=== PATIENT | female | born 1990 | race Caucasian/White ===

== ENCOUNTER → 2018-09-26 10:46 | Outpatient (CLI) | payer BC, SELFPAY | PROVIDERS: Family Provider Family Medicine; PCP Family Medicine; Referring Provider Family Medicine; Visit Provider Family Medicine | DX: R00.2 Palpitations (principal); R00.0 Tachycardia, unspecified | CPT/HCPCS: 93225; 93226 ==

== ENCOUNTER 2018-11-18 15:20 | Emergency (ER) | payer BC, SELFPAY ==
[2018-11-18 15:20] VITALS: BP 135/78; PULSE 116; RESP 20; TEMP 37.2; O2SAT 96; BMI 38.1
--- NOTE | 2018-11-18 17:43 | EKG12_ITS ---
Test Reason : Blood Pressure : / mmHG Vent. Rate : 092 BPM Atrial Rate : 092 BPM P-R Int : 152 ms QRS Dur : 082 ms QT Int : 366 ms P-R-T Axes : 052 011 029 degrees QTc Int : 452 ms Normal sinus rhythm Normal ECG Confirmed by JOHNNIE QUIÑONES MD ([id number]), news assignment editor TOBY JAIME ([id number]) on 11/20/2018 2:00:41 PM Referred By: BONIFACIO Confirmed By:JOHNNIE QUIÑONES MD
--- NOTE | 2018-11-18 17:51 | NURSING ---
NO OLD EKGS
[2018-11-18 18:07] VITALS: BP 129/84; PULSE 105; PULSE 109; RESP 18; TEMP 36.6; O2SAT 98; O2SAT 99
[2018-11-18 18:12] VITALS: O2SAT 99
[2018-11-18 18:13] LABS: Absolute Lymphocyte Count 2.69 X10^3/ul (0.83-4.51); Absolute Neutrophil Count 9.4 X10^3/uL (2.0-7.7); Basophil# 0.07 X10^3/uL; Basophil% 0.5 % (0-1); Eosinophil# 1.41 X10^3/uL; Eosinophils% 9.5 % (0-5); Hematocrit 45.2 % (37-47); Hemoglobin 14.7 g/dl (12.0-15.0); Lymphocyte # 2.69 X10^3/ul (4.0); Lymphocyte % 18.2 % (19-41); Mean Corp Hgb Conc 32.5 g/gl (32-36); Mean Corpuscular Hgb 29.8 pg (27.0-32.0); Mean Corpuscular Volume 91.5 fL (81-99); Mean Platelet Vol. 11.3 fl (6.2-12.0); Monocyte# 1.13 X10^3/uL; Monocyte% 7.6 % (0-10); Neutrophil # 9.42 X10^3/uL (2.7-7.7); Neutrophil % 63.7 % (47-70); POSITIVE COUNT NO; POSITIVE DIFFERENTIAL NO; POSITIVE MORPHOLOGY NO; Platelet Count 276 K/mm3 (150-450); RBC Distribution Width CV 14.5 % (11.6-14.6); RBC Distribution Width SD 48.5 fl (35.1-43.9); Red Blood Count 4.94 M/mm3 (4.2-5.4); White Blood Count 14.8 K/mm3 (4.4-11.0)
[2018-11-18] MEDS: 0.9% Normal Saline 1,000 ML 1000 ML IV (18:16)
[2018-11-18 18:24] LABS: D-Dimer Quantitative (DVT/PE) < 0.27 FEU/ug/m (0.27-0.49)
[2018-11-18 18:31] LABS: Anion Gap 12 (5-15); BUN 15 mg/dL (7-18); BUN/Creat Ratio 13.5 RATIO (10-20); Calcium,Total 9.3 mg/dL (8.5-10.1); Chloride 108 mmol/L (98-107); Creatinine, Serum 1.11 mg/dL (0.55-1.02); EST Glomerular Filtration Rate 63 mL/min (>60); Est Glom Filt Rate - Afr Amer 76 mL/min (>60); Estimated Creatinine Clearance 57.45 ml/min; Glucose 88 mg/dL (74-106); Sodium Level 143 mmol/L (136-145)
[2018-11-18 19:09] LABS: Pregnancy, Serum, hCG Quali. NEGATIVE Negative (0-9 Nonpreg)
--- NOTE | 2018-11-18 19:26 | ED.DCSUM_ITS ---
- ER Visit Summary Date of Service: 11/18/18 Chief Complaint: Shortness of breath History of Present Illness: The patient is a [address] Cayla curtis. She reports that she has shortness of breath began yesterday. States that she has had a cough productive of clear/yellow sputum. She denies any fever or chills. She reports that yesterday she felt short of breath and took her pulse ox and was 89% with a heart rate in the 150s. States that she used her inhaler and it resolved. Today she again felt short of breath and had a pulse ox of 90% with a heart rate of 124. She used her inhaler and again it resolved. She went to urgent care and had a chest x-ray is negative. States that she was sent to the emergency department for a CT of my chest. Patient denies any personal family history of DVT. No recent travel. No ankle swelling or calf pain. She is on control pills and states that she smokes occasionally. Physical Examination: Vitals: Stable. Afebrile. General: Well-nourished and well-developed. Head: Normocephalic atraumatic. Neck: Supple, no lymphadenopathy. No JVD. Nontender. Cardiovascular: Regular rate and rhythm. No murmurs. Respiratory: No respiratory distress. Clear to auscultation bilaterally. Abdominal: Soft, nontender, nondistended, normal bowel sounds. No guarding, rebound, or peritoneal signs. Back: Nontender. Extremities: Nontender, no edema. Skin: Normal color, no rash. Neurologic: Alert and oriented ?3. Cranial nerves II through XII are intact. Normal strength and sensation. Psych: Normal affect. Test Results: EKG is sinus at 92 with no acute changes. Troponin is negative. D-dimer is negative. test negative. Chloride is 108 and creatinine is 1.11. CBC shows a white count of 14.8 with lymphs lites of 18 and eosinophils of 10. Patient brought the report from her chest x-ray to the emergency department that was negative. This was not repeated. Emergency Department Course and Treatment: Patient is resting comfortably. She was treated prednisone p.o. Treatment Plan: Patient reports that she feels as though she has a URI and and her asthma is acting up. She will be discharged on a 5-day burst of prednisone. Instructed to use her albuterol MDI. [place] her primary care physician 1-2 days if not improving. Return to the emergency department for any worsening symptoms. Disposition: To home in improved and stable condition. Impression: 1. URI. 2. Asthma exacerbation. This note was generated with [employer] dictation software. It may contain incorrect words, spelling, and punctuation that were not noted in review of the chart prior to signing ED Disposition - Plan for ED Patient: Disposition: Home or Assisted Living Instructions: ED Bronchitis Asthmatic Prescriptions: Prednisone [Deltasone] 60 mg PO DAILY #15 tablet Referrals: John Sweet MD [Primary Care Provider] - 3-5 Days if not improving
[2018-11-18] MEDS: predniSONE 20 MG Tablet 60 MG PO (19:39)
== END 2018-11-18 19:41 | disposition home or self-care (01) ==
LOC: ED 17:59
PROVIDERS: Emergency Provider Emergency Medicine; Family Provider Family Medicine; PCP Family Medicine
DX: J06.9 Acute upper respiratory infection, unspecified (principal); J45.901 Unspecified asthma with (acute) exacerbation; F31.9 Bipolar disorder, unspecified; Z79.3 Long term (current) use of hormonal contraceptives; Z79.899 Other long term (current) drug therapy; Z72.0 Tobacco use
CPT/HCPCS: 80048; 84484; 84703; 85025; 85379; 93005; 96360; 99285; J7030

== ENCOUNTER 2019-02-03 08:57 | Outpatient (RCR) | payer BC, SELFPAY ==
--- NOTE | 2019-02-03 09:05 | BH.SGPN.GN ---
Behaviors/Verbalizations/Mental Status: [] Eye contact is good. Motor activity is appropriate. Appearance is casual. Speech is Appropriate. Mood is anxious. Affect is congruent. Thoughts are linear and logical. No evidence of psychosis. Reviewed daily check in sheet with 3/5 for suicidal ideations and 0/5 for intent. Therapist notified Client Response/Progress/Benefit: [] Pt spoke when prompted. Reported being anxious as this was her first day in IOP. Shared little stating that she is here to work on developing stronger coping skills for her depression and anxiety. Group was supportive and discussed their anxiety on the first day. Normalized her emotions and discussed their progress since the first day. Pt smiling and laughing at times. Attentive. No progress noted as this was pt's first day. Stated that she feels like she is constantly holding back her tears. Will continue in IOP to maintain safety, increased coping skills for depression/anxiety, and stabilize mood. Narrative Note: []
--- NOTE | 2019-02-03 10:05 | BH.SGPN.GN ---
Behaviors/Verbalizations/Mental Status: []Pt eye contact good, casually dressed, motor activity appropriate, speech normal rate and tone, mood dysthymic and anxious, constricted affect, thoughts linear and intact, no evidence of delusions or hallucinations. Client Response/Progress/Benefit: []Client passive participant, not providing input throughout discussion, however appeared to attentively listen to peers. Client nodded that viewing situations as impossible can negatively impact one?s mental health. Client agreed with peers comments that seeing things as impossible sets you up to not try new things or to overcome difficult situations. Client nodded to others comments that some things appear impossible, but if keep trying likely can find a way to overcome or accomplish the difficult task. Client engaged in the group activity and the group did not complete the activity during second group. Despite lack of success, client did not appear to fall into fixed thinking pitfalls and stayed engaged. Client appeared to benefit from gaining awareness how viewing situations as impossible can negatively impact mental health progress. Client's first day in IOP which could explain client's passive participation. Narrative Note: []
--- NOTE | 2019-02-03 11:10 | BH.SGPN.GN ---
Behaviors/Verbalizations/Mental Status: [Client maintained fair eye contact, casually dressed and appropriate grooming, motor activity appropriate, speech normal rate and tone, mood anxious and depressed, affect congruent, thoughts linear, logical, no evidence of delusions or hallucinations.]] Client Response/Progress/Benefit: [Pt attentive, did well to remain attentive during discussion and became increasingly engaged during growth mindset reflection activity. She was actively listening and taking notes as group brainstormed on how fixed mindset thoughts experienced in the activity impacted ability to complete the task at hand. Pt indicated connecting with thoughts of ?if it?s not perfect I might as well give up?. Worked with group to identify important components of a growth mindset. With reflection and assistance from the group she was able to apply cognitive restructuring to reframe fixed thoughts of ?I have to be perfect? with growth mindset thought of ?I can put my best effort in and still make a lot of progress?. Benefitted from discussing benefits of growth mindset and strategies for reframing fixed thoughts. Progress in pt ability to challenge self to increase in engagement and provide input to the group. Continued IOP tx recommended to increase insight and ability to apply thought challenge skills, improve anxiety, and maintain safety.] Narrative Note: []
--- NOTE | 2019-02-03 13:03 | BH.MDN ---
Multi-Disciplinary Note - Note 45-min Individual Time Started:: 12:15 Date: 02/03/19 Purpose of session/treatment goals addressed:: Accessed current symptoms. Reviewed first day in IOP. Eye Contact:: Fair Motor Activity:: Appropriate Appearance:: Casual Speech:: Appropriate Mood:: Depressed Affect:: Flat Thoughts:: Linear, Logical, Other Staff Interventions:: Utilized NM techniques to elicit change behaviors. Provided education on cognitive distortions.Gave thought record. Began to discuss treatment plan. Educated on crisis numbers. Client Response:: Pt was tearful. Stated that she unsure if IOP program is right fit. Discussed being introvert and having difficulty talking during groups. Describes herself as usually keeping her emotions to herself. Shared i know a lot of these skills however I'm not using them. Talked about struggles with feeling like I always have to be perfect. Shared that this belief often leads to feelings of depression and believing that she is a failure. Shared that her ex-bf completed suicide this past weekend. States that they were not close as he was the worst BF I ever had however just got me thinking more about my symptoms. Denies suicidal ideations, plan, or intent. States numerous times I'm safe. We reviewed crisis numbers. We also talked about some coping skills and developing a thought record to track her thoughts so that she could challenge them. Smiling and joking towards the end of the session. Risks/Concerns:: Pt denies any active suicidal ideations, plan, or intent. Protective factor is child. Future-oriented with career and school. Going to work this afternoon. Verbally contracts for safety. Reports fleeting suicidal thoughts yesterday after learning that ex-bf completed suicide this weekend. Fleeting SI has been occuring for several months with no formulation of intent or plan. Denies any hx of suicide attempts. Progress Toward Goals/Plan:: Limited progress as this is pt's first day. Long-standing fleeting suicidal ideations since Aug 2018 and feelings of hopelessness. Denies any active SI, plan, or intent. No hx of attempts. Unsure if IOP is right fit for her. At times felt uncomforable in group however was able to identify positives to hearing that others are struggling with depression as well. Discussed benefits however made sure she understood that program is voluntary. Plan is to continue with IOP to maintain safety, prevent decompensation, and stablize mood.
--- NOTE | 2019-02-05 09:05 | BH.SGPN.GN ---
Behaviors/Verbalizations/Mental Status: [] Eye contact is good. Motor activity is appropriate. Appearance is casual. Speech is Appropriate. Mood is depressed. Affect is flat. Thoughts are linear and logical. No evidence of psychosis. Reviewed daily check in sheet and pt reports 3/5 for suicidal ideations and 0/5 for intent. Therapist notified Client Response/Progress/Benefit: [] Pt participated at time during group discussion. Emotion for today is anxious. Shared that she continues to struggle reporting that she isolated all day yesterday. Feels guilty about this. Tearful. Did not elaborate much however did provided feedback to other peers regarding self-care. Reports that she is getting used too sharing her emotions with others and in group sessions. Group was supportive which was beneficial. No progress noted however pt appears to be getting more comfortable in group setting. Will continue in IOP to maintain safety, prevent decompensation, and increase coping skills. Narrative Note: []
--- NOTE | 2019-02-05 10:09 | BH.SGPN.GN ---
Behaviors/Verbalizations/Mental Status: []Client alert and oriented, casually dressed and groomed. Eye contact fair. Motor activity appropriate. Speech within normal limits. Affect congruent, mood dysthymic. Thoughts linear, logical, no signs of hallucinations or delusions. Client Response/Progress/Benefit: []Pt receptive of session AEB pt listening to others, taking notes, and providing input at times. Pt appeared to connect with various definitions of resilience provided by the group as well as ideas for how resilience can have positive impacts mental health and wellness. Pt reported coming to IOP and willing to work on self shows resilience. Pt engaged in small group discussion about the various strategies that can help strengthen one's resilience. Pt appeared to connect with others comments about importance of self-awareness to build resilience because if know personal barriers then know what you can do to improve situation. Pt seemed to benefit from increased awareness of various components that can contribute to increased resilience. Progress noted in her increased engagement in session compared to previous group sessions. Continued IOP recommended to prevent decompensation, increase utilization of healthy coping skills, and decrease depression. Narrative Note: []
--- NOTE | 2019-02-05 11:12 | BH.SGPN.GN ---
Behaviors/Verbalizations/Mental Status: []Client alert and oriented, casually dressed and groomed. Eye contact good. Motor activity appropriate. Speech within normal limits. Affect flat, mood depressed. Thoughts linear, logical, no signs of hallucinations or delusions. Client Response/Progress/Benefit: []Client responded well to session, quiet, but participating when prompted. Client engaged in the group activity. Client was passive at first, but then she helped the group develop ideas to be successful. Client shared ?we trusted each other? which can also help people be resilient in their daily lives. Client was given a stress ball as a reminder of resilience. On her stress ball, client wrote ?don?t give up when something doesn?t work out.? Client shared this will remind her to have hope. Client reported she wants to work on having more hope and optimism to further improve personal resilience. Client shared she struggles with this because ?I?m pessimistic.? The group helped client identify strategies to help client be more optimistic such as writing out positives. Client appeared to benefit from identifying personal resilience factors. No progress, but client appears to be getting more comfortable in the group setting. Client to continue IOP to maintain safety and prevent decompensation.
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
--- NOTE | 2019-02-05 15:17 | BH.MTP ---
[facility] - Patient Information Program Physician:: Jose Angel Philip Primary Therapist:: Michelle Villalba - Psychiatric Diagnoses Psychiatric Diagnoses:: Persistent depressive disorder, rule out bipolar type II: Generalized anxiety disorder; history of substance abuse, in remission. Diagnosis Code(s):: F 34.1 - Estimated LOS Estimated LOS (in weeks):: 6 Problem/Goal #1 - Problem/Goal #1 Stated Goal:: Client will decrease depressive symptoms, isolation, and suicidal ideations. Description of Barriers: Client has been with her since she was 17 years old and she reports currently feeling like their relationship is in a rut. Per client's report, she cheated on her while manic and client continues to feel shame and guilt over this situation. Client is not close with her parents and she does not report any close friends. Client has been isolating for the past several months. Client endorses numerous negative core beliefs that may take a longer time than 6 weeks to combat and replace. Client has a history of complex trauma, drug use, and unhealthy coping skills such as internalizing and avoidance. Client reports she can mask her mental health symptoms well when she is around others, and that she does not like being vulnerable. Client works, goes to school, and has a [id number], so she has limited time for self-care. Functional Impact: Client is a 28-year-old female with a history of bipolar disorder and PTSD. Client was referred by her outpatient therapist due to worsening depressive symptoms and fleeting suicidal ideations. Client reports history of depression since she was a teenager, but that her depression has been worse since August of 2018. Client endorses a depressed mood, anhedonia, increased sleep and appetite, lack of motivation, crying spells, suicidal ideations, isolative behaviors, and hopelessness. Client denies any active suicidal ideations, but she shares frequent thoughts of my and daughter would be better without me. Client reports constant anxiety, ruminations, and restlessness. Client has history of brendan, per her report, in which client has decreased sleep, impulsive behaviors, and risky sexuality. Client?s symptoms have been impacting her educational, social, and familial functioning as well as her quality of life. Goal Relevant Strengths/Supports: Client is intelligent, kind, and motivated to improve her mental health symptoms. Client has a good sense of humor and is willing to engage during sessions. Client demonstrates significant resilience as she has experienced numerous adverse experiences in her life and continues to move forward. Client has a daughter who she identifies as her reason to live and is . Client identifies her [id number] as her biggest support. 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 Client is receptive to learning new coping skills and reports I'll try anything. Client's open mind could be beneficial to her progress. - Objectives Objective #1 Stated Objective: Client will learn and utilize 2-3 healthy coping strategies to better manage depressive symptoms as shown by a reduced DSM-5 cross cutting score for depression. Interventions: Through group and individual sessions, therapist will help client identify triggers and warning signs of depression and emotional dysregulation including emotional, physical, and behavioral changes. Therapist will teach client various coping skills to manage her symptoms and give client tangible resources to use to regulate emotions. Therapist will use cognitive restructuring techniques and help client gain awareness of negative thoughts that reinforce depressive cycles. Therapist will provide psychoeducation on depressive cycles and teach client ways to beak out of unhealthy maintenance cycles. Therapist will help client incorporate behavioral activation and assist client in setting SMART goals. Discharge Criteria: Client will have met this goal when she can report learning and using at least 2 coping skills to manage depressive symptoms. Additionally, client will have met this goal when her DSM-5 scores for depression have decreased. Target Date: 03/17/19 Review Date: 03/05/19 Status: open Objective #2 Stated Objective: Client will identify at least 2-3 negative self-talk messages used to reinforce suicidal ideations and negative core beliefs and replace thoughts with positive, realistic messages. Interventions: Therapist will help client identify distorted, negative beliefs about self and replace with more realistic, affirmative messages. Therapist will use CBT to help client increase insight to the connection between thoughts, emotions, and behaviors. Therapist will encourage client to practice thought challenging. Discharge Criteria: Client will have achieved this goal when can verbalize at least 2 negative self-talk messages and effectively replace those thoughts with affirmative messages. Target Date: 03/17/19 Review Date: 03/05/19 Status: open Problem/Goal #2 - Problem/Goal #2 Stated Goal:: Client will increase emotional regulation and reduce anxiety symptoms. Description of Barriers: Client has been with her since she was 17 years old and she reports currently feeling like their relationship is in a rut. Per client's report, she cheated on her while manic and client continues to feel shame and guilt over this situation. Client is not close with her parents and she does not report any close friends. Client has been isolating for the past several months. Client endorses numerous negative core beliefs that may take a longer time than 6 weeks to combat and replace. Client has a history of complex trauma, drug use, and unhealthy coping skills such as internalizing and avoidance. Client reports she can mask her mental health symptoms well when she is around others, and that she does not like being vulnerable. Client works, goes to school, and has a [id number], so she has limited time for self-care. Functional Impact: Client is a 28-year-old female with a history of bipolar disorder and PTSD. Client was referred by her outpatient therapist due to worsening depressive symptoms and fleeting suicidal ideations. Client reports history of depression since she was a teenager, but that her depression has been worse since August of 2018. Client endorses a depressed mood, anhedonia, increased sleep and appetite, lack of motivation, crying spells, suicidal ideations, isolative behaviors, and hopelessness. Client denies any active suicidal ideations, but she shares frequent thoughts of my and daughter would be better without me. Client reports constant anxiety, ruminations, and restlessness. Client has history of brendan, per her report, in which client has decreased sleep, impulsive behaviors, and risky sexuality. Client?s symptoms have been impacting her educational, social, and familial functioning as well as her quality of life. Goal Relevant Strengths/Supports: Client is intelligent, kind, and motivated to improve her mental health symptoms. Client has a good sense of humor and is willing to engage during sessions. Client demonstrates significant resilience as she has experienced numerous adverse experiences in her life and continues to move forward. Client has a daughter who she identifies as her reason to live and is . Client identifies her [id number] as her biggest support. 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 Client is receptive to learning new coping skills and reports I'll try anything. Client's open mind could be beneficial to her progress. - Objectives Objective #1 Stated Objective: Client will identify 2-3 anxiety and emotional dysregulation triggers and 2 calming coping skills to reduce anxiety as shown by decreased DSM-5 cross-cutting score. Interventions: Therapist will help client increase awareness of anxiety and emotional dysregulation triggers and educate client on ways emotions impact overall health. Therapist will teach client various calming strategies to promote emotional regulation and reduction of anxiety. Therapist will assist client in identifying warning signs and triggers. Therapist will discuss the benefit of self-care and self-compassion. Discharge Criteria: Client will have accomplished this goal when can report at least 2 triggers for anxiety and state using 2 calming strategies to manage symptoms. Additionally, client will have accomplished this goal when her DSM-5 cross-cutting scores show a decrease in anxiety. Target Date: 03/17/19 Review Date: 03/05/19 Status: open Objective #2 Stated Objective: Client will identify 2-3 cognitive distortions that lead to rumination and learn 2-3 ways to manage these thoughts to reduce anxiety and stress. Interventions: Therapist will provide education on the most common cognitive distortions and teach client the connection between thoughts, emotions, and feelings. Therapist will assist client in identifying, challenging, and replacing dysfunctional thoughts with positive, more realistic thoughts. Therapist will use CBT and DBT techniques to help client gain awareness of thinking errors and learn how to more effectively handle negative thoughts that cause anxiety. Discharge Criteria: Client will have accomplished this goal when can identify at least 2 cognitive distortions that reinforce anxiety and at least 2 coping skills to manage negative thoughts. Target Date: 03/17/19 Review Date: 03/05/19 Status: open
--- NOTE | 2019-02-07 09:00 | BH.COMM ---
Communication Note - Communication with Client Communication Note: Pt unable to come to IOP today due to childcare issues. Will miss psychiatric evaluation. Plan is to complete this next week.
--- NOTE | 2019-02-10 09:06 | BH.SGPN.GN ---
Behaviors/Verbalizations/Mental Status: [Pt alert and oriented, casual dress, grooming appropriate. Eye contact fair to good. Motor activity appropriate. Speech within normal limits. Affect constricted, mood depressed and anxious. Thoughts linear, logical, no signs of hallucinations or delusions. Reviewed client?s symptom tracker and pt reports suicidal ideation as 4/5 which is consistent to baseline, denies intent.?Pt is future oriented and able to identify positives. Will have individual therapist check-in to further assess for risk. ] Client Response/Progress/Benefit: [Pt receptive of session, provided limited input however remained an active listener throughout. Pt opted not to share in group and discussed that she currently has several stressors she would prefer not to discuss at the moment. Reports feeling hopeless. She was receptive of group encouragement and appeared to benefit from the support provided. Pt progress continues to be limited due to resistance to engaging in tx environment. Recommended continued IOP tx to decrease depressive sx, increase positive self-talk and healthy behaviors, as well as prevent decompensation.] Narrative Note: []
--- NOTE | 2019-02-10 10:25 | BH.SGPN.GN ---
Behaviors/Verbalizations/Mental Status: []Client alert and oriented, causally dressed and groomed. Eye contact poor. Motor activity appropriate. Speech within normal limits. Affect flat, mood depressed. Thoughts linear, logical, no signs of hallucinations or delusions. Client Response/Progress/Benefit: []Client passive participant AEB pt providing limited input throughout discussion, but appeared to listen attentively to peers. Connected with discussion on how coping with external crisis by using unhealthy coping skills could lead to personal crisis. Group identified common warning signs of a personal crisis to include: isolation, increased negative thoughts, increased sleep, increased appetite, loss of motivation and apathy. Client completed the personal warning signs worksheet and identified crisis warning signs. Client chose to not share with group her own personal warning signs. Benefited from group by increasing awareness of crisis and personal warning signs. Will continue IOP tx to stabilize moods, increase use of healthy coping skills and prevent decompensation. Narrative Note: []
--- NOTE | 2019-02-10 11:25 | BH.SGPN.GN ---
Behaviors/Verbalizations/Mental Status: []Client alert and oriented, neatly dressed and groomed. Eye contact fair. Motor activity appropriate. Speech within normal limits. Affect flat-tearful, mood anxious, depressed. Thoughts linear, logical, no signs of hallucinations or delusions. Client Response/Progress/Benefit: []Client responded well to session as evidenced by client listening attentively to others and sharing when prompted. Client identified her warning signs for crisis and gained further awareness of her earliest warning signs, however, client declined to share her warning signs with the group. Client recognized that awareness of these warning signs can prevent further crisis and help client utilize healthy coping skills to break the cycle. Client created a crisis action plan to help client better manage warning signs for crisis. Client?s plan included coping skills such grounding techniques and reaching out to a trusted support. Client selected three items that will help her remember these crisis interventions including a rock, a flower, and a feather. Client appeared to benefit from creating a crisis action plan and increasing her self-awareness. Client continues to endorse a depressed mood, anxiety, and difficulty regulation emotions. Client to continue IOP to prevent further decompensation and increase mood stability.
--- NOTE | 2019-02-12 15:17 | BH.MTP_ITS ---
[facility] - Patient Information Program Physician:: Jose Angel Philip Primary Therapist:: Michelle Villalba - Psychiatric Diagnoses Psychiatric Diagnoses:: Persistent depressive disorder, rule out bipolar type II: Generalized anxiety disorder; history of substance abuse, in remission. Diagnosis Code(s):: F 34.1 - Estimated LOS Estimated LOS (in weeks):: 6 Problem/Goal #1 - Problem/Goal #1 Stated Goal:: Client will decrease depressive symptoms, isolation, and suicidal ideations. Description of Barriers: Client has been with her since she was 17 years old and she reports currently feeling like their relationship is in a rut. Per client's report, she cheated on her while manic and client continues to feel shame and guilt over this situation. Client is not close with her parents and she does not report any close friends. Client has been isolating for the past several months. Client endorses numerous negative core beliefs that may take a longer time than 6 weeks to combat and replace. Client has a history of complex trauma, drug use, and unhealthy coping skills such as internalizing and avoidance. Client reports she can mask her mental health symptoms well when she is around others, and that she does not like being vulnerable. Client works, goes to school, and has a [id number], so she has limited time for self-care. Functional Impact: Client is a 28-year-old female with a history of bipolar disorder and PTSD. Client was referred by her outpatient therapist due to worsening depressive symptoms and fleeting suicidal ideations. Client reports history of depression since she was a teenager, but that her depression has been worse since August of 2018. Client endorses a depressed mood, anhedonia, increased sleep and appetite, lack of motivation, crying spells, suicidal ideations, isolative behaviors, and hopelessness. Client denies any active suicidal ideations, but she shares frequent thoughts of my and daughter would be better without me. Client reports constant anxiety, ruminations, and restlessness. Client has history of brendan, per her report, in which client has decreased sleep, impulsive behaviors, and risky sexuality. Client?s symptoms have been impacting her educational, social, and familial functioning as well as her quality of life. Goal Relevant Strengths/Supports: Client is intelligent, kind, and motivated to improve her mental health symptoms. Client has a good sense of humor and is willing to engage during sessions. Client demonstrates significant resilience as she has experienced numerous adverse experiences in her life and continues to move forward. Client has a daughter who she identifies as her reason to live and is . Client identifies her [id number] as her biggest support. 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 Client is receptive to learning new coping skills and reports I'll try anything. Client's open mind could be beneficial to her progress. - Objectives Objective #1 Stated Objective: Client will learn and utilize 2-3 healthy coping strategies to better manage depressive symptoms as shown by a reduced DSM-5 cross cutting score for depression. Interventions: Through group and individual sessions, therapist will help client identify triggers and warning signs of depression and emotional dysregulation including emotional, physical, and behavioral changes. Therapist will teach client various coping skills to manage her symptoms and give client tangible resources to use to regulate emotions. Therapist will use cognitive restructuring techniques and help client gain awareness of negative thoughts that reinforce depressive cycles. Therapist will provide psychoeducation on depressive cycles and teach client ways to beak out of unhealthy maintenance cycles. Therapist will help client incorporate behavioral activation and assist client in setting SMART goals. Discharge Criteria: Client will have met this goal when she can report learning and using at least 2 coping skills to manage depressive symptoms. Additionally, client will have met this goal when her DSM-5 scores for depression have decreased. Target Date: 03/17/19 Review Date: 03/05/19 Status: open Objective #2 Stated Objective: Client will identify at least 2-3 negative self-talk messages used to reinforce suicidal ideations and negative core beliefs and replace thoughts with positive, realistic messages. Interventions: Therapist will help client identify distorted, negative beliefs about self and replace with more realistic, affirmative messages. Therapist will use CBT to help client increase insight to the connection between thoughts, emotions, and behaviors. Therapist will encourage client to practice thought challenging. Discharge Criteria: Client will have achieved this goal when can verbalize at least 2 negative self-talk messages and effectively replace those thoughts with affirmative messages. Target Date: 03/17/19 Review Date: 03/05/19 Status: open Problem/Goal #2 - Problem/Goal #2 Stated Goal:: Client will increase emotional regulation and reduce anxiety symptoms. Description of Barriers: Client has been with her since she was 17 years old and she reports currently feeling like their relationship is in a rut. Per client's report, she cheated on her while manic and client continues to feel shame and guilt over this situation. Client is not close with her parents and she does not report any close friends. Client has been isolating for the past several months. Client endorses numerous negative core beliefs that may take a longer time than 6 weeks to combat and replace. Client has a history of complex trauma, drug use, and unhealthy coping skills such as internalizing and avoidance. Client reports she can mask her mental health symptoms well when she is around others, and that she does not like being vulnerable. Client works, goes to school, and has a [id number], so she has limited time for self-care. Functional Impact: Client is a 28-year-old female with a history of bipolar disorder and PTSD. Client was referred by her outpatient therapist due to worsening depressive symptoms and fleeting suicidal ideations. Client reports history of depression since she was a teenager, but that her depression has been worse since August of 2018. Client endorses a depressed mood, anhedonia, increased sleep and appetite, lack of motivation, crying spells, suicidal ideations, isolative behaviors, and hopelessness. Client denies any active suicidal ideations, but she shares frequent thoughts of my and daughter would be better without me. Client reports constant anxiety, ruminations, and restlessness. Client has history of brendan, per her report, in which client has decreased sleep, impulsive behaviors, and risky sexuality. Client?s symptoms have been impacting her educational, social, and familial functioning as well as her quality of life. Goal Relevant Strengths/Supports: Client is intelligent, kind, and motivated to improve her mental health symptoms. Client has a good sense of humor and is willing to engage during sessions. Client demonstrates significant resilience as she has experienced numerous adverse experiences in her life and continues to move forward. Client has a daughter who she identifies as her reason to live and is . Client identifies her [id number] as her biggest support. 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 Client is receptive to learning new coping skills and reports I'll try anything. Client's open mind could be beneficial to her progress. - Objectives Objective #1 Stated Objective: Client will identify 2-3 anxiety and emotional dysregulation triggers and 2 calming coping skills to reduce anxiety as shown by decreased DSM-5 cross-cutting score. Interventions: Therapist will help client increase awareness of anxiety and emotional dysregulation triggers and educate client on ways emotions impact overall health. Therapist will teach client various calming strategies to promote emotional regulation and reduction of anxiety. Therapist will assist client in identifying warning signs and triggers. Therapist will discuss the benefit of self-care and self-compassion. Discharge Criteria: Client will have accomplished this goal when can report at least 2 triggers for anxiety and state using 2 calming strategies to manage symptoms. Additionally, client will have accomplished this goal when her DSM-5 cross-cutting scores show a decrease in anxiety. Target Date: 03/17/19 Review Date: 03/05/19 Status: open Objective #2 Stated Objective: Client will identify 2-3 cognitive distortions that lead to rumination and learn 2-3 ways to manage these thoughts to reduce anxiety and st ress. Interventions: Therapist will provide education on the most common cognitive distortions and teach client the connection between thoughts, emotions, and feelings. Therapist will assist client in identifying, challenging, and replacing dysfunctional thoughts with positive, more realistic thoughts. Therapist will use CBT and DBT techniques to help client gain awareness of thinking errors and learn how to more effectively handle negative thoughts that cause anxiety. Discharge Criteria: Client will have accomplished this goal when can identify at least 2 cognitive distortions that reinforce anxiety and at least 2 coping skills to manage negative thoughts. Target Date: 03/17/19 Review Date: 03/05/19 Status: open
== END 2019-02-11 23:59 ==
LOC: BHIOP 08:57
PROVIDERS: Family Provider Family Medicine; PCP Family Medicine; Referring Provider Psychiatry & Neurology Psychiatry; Visit Provider Psychiatry & Neurology Psychiatry
DX: F32.9 Major depressive disorder, single episode, unspecified (principal); F43.10 Post-traumatic stress disorder, unspecified
CPT/HCPCS: H0035; 90837; 90853

== ENCOUNTER 2019-02-12 09:00 | Outpatient (RCR) | payer BC, SELFPAY ==
--- NOTE | 2019-02-12 09:09 | BH.SGPN.GN ---
Behaviors/Verbalizations/Mental Status: [Pt alert and oriented, casual dress, grooming appropriate. Eye contact fair to good. Motor activity appropriate. Speech within normal limits. Affect constricted, mood depressed and anxious. Thoughts linear, logical, no signs of hallucinations or delusions. Reviewed client?s symptom tracker and pt reports suicidal ideation as 4/5 which is consistent to baseline, denies intent.?Pt is future oriented and able to identify positives. Will have individual therapist check-in to further assess for risk. ] Client Response/Progress/Benefit: [Pt receptive of session, provided limited input however remained an active listener throughout. Pt noted ?I don?t love first group? and discussed that discussing her emotions in a group setting is a new and uncomfortable thing for her as she does not typically talk in social settings. Pt indicated emotion for today is hopeless and went on to explain that she is struggling to manage the overwhelming stress in her daily life. She did well to identify two mental health wins despite current stressors. Pt noted following through with going to cross-fit class with her [id number] as a major win as she had been tempted to isolate instead. Additional win was that this allowed her to catch up and spend time with her [id number]. Pt progress noted in willingness to contribute to group despite anxiety. Recommended continued IOP tx to decrease depressive sx, increase positive self-talk and healthy behaviors, as well as prevent decompensation.] Narrative Note: []
--- NOTE | 2019-02-12 10:17 | BH.SGPN.GN ---
Behaviors/Verbalizations/Mental Status: [Client alert and oriented, casually dressed. Eye contact fair to good. Motor activity appropriate. Speech within normal limits. Affect constricted, mood depressed. Thoughts linear, logical, no signs of hallucinations or delusions. ] Client Response/Progress/Benefit: [Pt receptive to session, provided limited input however actively listening throughout discussion on stress AEB maintaining eye contact and taking notes throughout. Able to brainstorm the positive and negative aspects of stress on physical and mental health. Indicated that an example of ?good stress? could be preparing for a wedding. Appeared to benefit from gaining awareness of own current stressors and learning about the impact stress has on overall wellbeing. She participated in identifying current stressors impacting her mental health. Pt's current stressors include: school, work, finances, her relationship, and caregiving responsibilities. Pt noted that her most significant stressor in currently school. Progress noted in improved ability to identify impact of current stressors on mental health and wellbeing as she indicated decreased self-confidence and increased agitation as a result. Recommended continued IOP tx to improve anxiety management, increase emotion regulation and distress tolerance skills, and prevent decompensation. ] Narrative Note: []
--- NOTE | 2019-02-12 14:31 | BH.MDN ---
Multi-Disciplinary Note - Note 60-min Individual Time Started:: 12:30 Date: 02/12/19 Purpose of session/treatment goals addressed:: The purpose of this session was to address current stressors, symptoms, and triggers. Another goal was to learn different types of coping skills and set small daily goals. Other topics included trauma triggers. Eye Contact:: Poor Motor Activity:: Appropriate - fidgeting with her tissue. Appearance:: Casual Speech:: Soft Mood:: Dysthymic Affect:: Flat - tearful Thoughts:: Linear, Logical, No evidence of hallucinations/delusions noted Staff Interventions:: Therapist used active listening and open-ended questions to explore client's current triggers, stressors, and symptoms. Therapist provided emotional support to validate and normalize client's emotions and safety behaviors. Therapist helped client process triggers and barriers. Therapist provided psychoeducation on the depressive cycle and the CBT triangle. Therapist used strengths perspective to emphasize client's mental health wins. Therapist taught client different types of coping skills and discussed the benefits of each type. Therapist assisted client in setting small daily goals to practice new coping skills. Client Response:: Client responded well to session, open to meeting with therapist. Client reports today was the best day she has had here so far I participated and didn't have a panic attack. Client shared she feels silly and like 'an idiot whenever she portrays emotions in group. Therapist helped to normalize these emotional responses and client appeared to become more understanding of herself. Client shared she often feels like things will not improve, but she does not want to give up. Client also reported fears of being normal because client shared she does not know what normal looks like. Client became tearful and reported she feels exhausted after group. After further exploration, client recognizes this is because she has been used to distracting herself and avoiding problems for most of her life. Client acknowledged the consequences of long-term avoidance and benefits of addressing mental health. Client connected with the CBT triangle and shared yesterday she made herself go to [employer] which improved her mood. Client receptive to learning about the different kinds of coping skills so she can have more of a variety besides distraction. Client reported she is willing to try journaling, visualization, and doing one thing she enjoys. Client receptive to talk time for self-care today before going into work. Risks/Concerns:: Client reports ongoing passive suicidal thoughts. However, client denies any active suicidal ideations, plan, or intent as of 02/12/19. Client verbally contracts for safety and reports ability to control her thoughts. Progress Toward Goals/Plan:: Client appears to be progressing towards her treatment goals as shown by her report of today was the best day I've had so far at [facility]. Client reports following through with her goals from individual and group sessions and did not have a panic attack today which is progress. Client continues to report emotional exhaustion after group. After further exploration, client recognizes this is from not being used to talking about her mental health. Client continues to report a depressed mood, anhedonia, crying spells, negative thinking, and lack of motivation. Client to continue IOP to prevent decompensation and maintain safety. Time Stopped:: 13:38
--- NOTE | 2019-02-12 14:53 | BH.MDN_ITS ---
Multi-Disciplinary Note - Note 60-min Individual Time Started:: 12:30 Date: 02/12/19 Purpose of session/treatment goals addressed:: The purpose of this session was to address current stressors, symptoms, and triggers. Another goal was to learn different types of coping skills and set small daily goals. Other topics included trauma triggers. Eye Contact:: Poor Motor Activity:: Appropriate - fidgeting with her tissue. Appearance:: Casual Speech:: Soft Mood:: Dysthymic Affect:: Flat - tearful Thoughts:: Linear, Logical, No evidence of hallucinations/delusions noted Staff Interventions:: Therapist used active listening and open-ended questions to explore client's current triggers, stressors, and symptoms. Therapist provided emotional support to validate and normalize client's emotions and safety behaviors. Therapist helped client process triggers and barriers. Therapist provided psychoeducation on the depressive cycle and the CBT triangle. Therapist used strengths perspective to emphasize client's mental health wins. Therapist taught client different types of coping skills and discussed the benefits of each type. Therapist assisted client in setting small daily goals to practice new coping skills. Client Response:: Client responded well to session, open to meeting with therapist. Client reports today was the best day she has had here so far I participated and didn't have a panic attack. Client shared she feels silly and like 'an idiot whenever she portrays emotions in group. Therapist helped to normalize these emotional responses and client appeared to become more understanding of herself. Client shared she often feels like things will not improve, but she does not want to give up. Client also reported fears of being normal because client shared she does not know what normal looks like. Client became tearful and reported she feels exhausted after group. After further exploration, client recognizes this is because she has been used to distracting herself and avoiding problems for most of her life. Client acknowledged the consequences of long-term avoidance and benefits of addressing mental health. Client connected with the CBT triangle and shared yesterday she made herself go to [employer] which improved her mood. Client receptive to learning about the different kinds of coping skills so she can have more of a variety besides distraction. Client reported she is willing to try journaling, visualization, and doing one thing she enjoys. Client receptive to talk time for self-care today before going into work. Risks/Concerns:: Client reports ongoing passive suicidal thoughts. However, client denies any active suicidal ideations, plan, or intent as of 02/12/19. Client verbally contracts for safety and reports ability to control her thoughts. Progress Toward Goals/Plan:: Client appears to be progressing towards her treatment goals as shown by her report of today was the best day I've had so far at [facility]. Client reports following through with her goals from individual and group sessions and did not have a panic attack today which is progress. Client continues to report emotional exhaustion after group. After further exploration, client recognizes this is from not being used to talking about her mental health. Client continues to report a depressed mood, anhedonia, crying spells, negative thinking, and lack of motivation. Client to continue IOP to prevent decompensation and maintain safety. Time Stopped:: 13:38
--- NOTE | 2019-02-13 13:38 | BH.COMM ---
Communication Note - Communication with Client Communication Note: Therapist spoke with client's outpatient therapist, Stefani Rueda, for continuity of care purposes including: treatment updates, progress, and plan of care.
--- NOTE | 2019-02-14 11:20 | BH.SGPN.GN ---
Behaviors/Verbalizations/Mental Status: []Pt alert and oriented, eye contact poor, casually dressed, motor activity appropriate, speech normal rate and tone, mood anxious and depressed, tearful, flat affect, thoughts linear and intact, no evidence of delusions or hallucinations. Client Response/Progress/Benefit: []Pt appeared disengaged during group discussion however did complete goal setting worksheet. Pt identified her short-term SMART goal is to go outside for at least 10 minutes a day. Pt stated this goal will benefit her decreasing isolation. Pt identified not having time as one obstacle that could get in the way of her accomplishing her goal. Pt stated she can overcome not having time by putting it into her daily schedule. Pt stated another barrier apathy which she stated she can overcome this barrier by reminding herself of the benefits and taking her daughter outside with her. Pt seemed to benefit from creating a SMART goal. Pt to continue IOP level of care to decrease negative self-talk, maintain safety and prevent decompensation. Narrative Note: []
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
--- NOTE | 2019-02-14 14:31 | BH.DR.ITP ---
Initial Treatment Plan - Patient Information Visit Information: ADMISSION DATE: 02/03/19 EXPECTED LOS: 4-6 weeks Diagnoses:: Persistent depressive disorder; r/o bipolar type II; MIKE; chronic adjustment disorder with anxiety; - Problems/Symptoms Problem #1:: chronic depression; history of possible hypomania Symptom:: low mood, anhedonia; low energy Problem #2:: anxiety Symptom:: chronic worry, feeling anxious, problems coping with stress Problem #3:: borderline personality disorder Symptom:: chronic mood instability, anger problems, impulsivity, relationship problems
--- NOTE | 2019-02-14 14:51 | BH.MDN ---
Multi-Disciplinary Note - Note 45-min Individual Time Started:: 12:20 Date: 02/14/19 Purpose of session/treatment goals addressed:: The purpose of this session was to address and reduce client's presenting depressive and anxiety symptoms. Another goal was to assess risk and set up goals for the weekend. Eye Contact:: Poor Motor Activity:: Restless - playing with tissue Appearance:: Casual Speech:: Soft Mood:: Anxious, Dysthymic Affect:: Flat, Other - tearful Thoughts:: Linear, Logical, No evidence of hallucinations/delusions noted Staff Interventions:: Therapist used active listening and open-ended questions to explore triggers to client's presenting symptoms. Therapist provided emotional support and validation. Therapist used grounding techniques to reduce client's anxiety symptoms and used strengths perspective to reframe self-deprecating talk. Therapist gently challenged client's distorted thought patterns and helped client identify strengths. Therapist assessed for risk and client verbally contracted for safety. Therapist helped client set small goals for the weekend. Client Response:: Client responded well to session, open to meeting with therapist. Client was tearful throughout session and at one point began to hyperventilate. Client able to manage her breathing and anxiety symptoms with help of therapist. Client reported feelings of guilt, worthlessness, and shame to therapist about client's past choices and current weight. Client stated, I'm a bad person and shared she felt stupid after one of her sessions today. Client stated, my mood is ruined for today and that she was thinking about quitting IOP. Client receptive to gentle thought challenging from therapist. Client able to recognize that she has been trying and has seen progress. Client stated, you would have been proud of me I sat out in the park by myself and practiced grounding coping skills which was a goal of client?s from earlier this week. Client shared tonight she is ?not up? for being around people. However, client recognized that ongoing isolation this will only maintain the depressive cycle. Client reported she was planning to go on a walk at [facility] with her daughter, dog, and this Sunday which she hopes will improve her mood. Client continued to process triggers from today and was receptive to therapist's emotional support. Therapist also normalized client's recent experience and client shared I feel better knowing I'm not the only one. Client has an appointment on Sunday with her outpatient psychiatrist, but she plans to come in for an individual session with this therapist as well. Risks/Concerns:: Client reports ongoing fleeting suicidal thoughts. Client was tearful throughout session and shared she thinks my could find someone better. Client denies any active suicidal ideations, plan, and intent as of 02/14/19. Client reports ability to maintain safety this weekend. Client was future oriented and had plans to go on a walk with her family this weekend at [facility]. Progress Toward Goals/Plan:: Despite current exacerbation of symptoms, client has been showing progress towards treatment goals. Client reports following through with her homework of practicing different types of coping skills each day and with reducing isolative behaviors. Client continues to endorse a depressed mood, crying spells, anhedonia, negative self-talk, anxiety, poor self-esteem, and chronic suicidal thoughts. Client continues to deny any active suicidal ideations. Client to continue IOP to prevent further decompensation and increase emotional regulation. Time Stopped:: 12:00
--- NOTE | 2019-02-17 14:16 | BH.MDN ---
Multi-Disciplinary Note - Note 45-min Individual Time Started:: 11:20 Date: 02/17/19 Purpose of session/treatment goals addressed:: The purpose of this session was to address client's current symptoms, risk, and use of coping skills. Another goal was to combat and replace negative thoughts that reinforce worthlessness and depression. Other topics included goal setting. Eye Contact:: Poor Motor Activity:: Slowed Appearance:: Neat Speech:: Soft Mood:: Dysthymic Affect:: Constricted - holding back tears Thoughts:: Linear, Logical, No evidence of hallucinations/delusions noted Staff Interventions:: Therapist used active listening and open-ended questions to explore client?s current symptoms, experience with coping skills, and assess risk. Therapist praised client for her application of coping skills this weekend. Therapist used cognitive restructuring techniques to help client begin to challenge negative, self-depreciating talk. Therapist gave client a worksheet providing additional strategies to challenge negative thoughts. Therapist helped client process stressors, encouraging the use of healthy emotional release today. Therapist assisted client in goal setting for the week. Client Response:: Client responded well to session, open to meeting with therapist. Client continues to be tearful and withdrawn at times during sessions, but eventually becomes more open to talking. Client reported this weekend was rough as she spent the entire day Sunday isolating and crying, per her report. However, client showed resilience and coping on Sunday when she went on a walk with her family. Client stated that improved her mood. Client has been following through with her homework of testing different coping skills and shared she tried challenging negative thoughts, but it was too difficult for her. Client shared some of her negative thoughts such as I'm ugly and fat, I'm a bad mom, I'm too stupid for nursing school. Client receptive to therapist helping client begin to challenge these thoughts. Client started with the thoughts that she tends to believe less of the time. Client able to identify evidence against the thought and ways she is the expection to her thoughts. Client reported she can start practicing affirmations. Client continues to ruminate over her session with [facility] psychiatrist on Sunday. After processing with therapist, client reported she plans to not give up on IOP or herself. Client able to recognize that one opinion is not the only opinion, and that she does have positive supports. Risks/Concerns:: Client reports thoughts of not wanting to be here anymore. Client denies intent to act on these thoughts and denies any active suicidal ideations or plan as of 02/17/19. Future oriented and going to work tonight. Protective factors are her daughter. Reports some hope for the future. Progress Toward Goals/Plan:: Client reports I think I'm worse than when I started, due to recent exacerbation in depressive symptoms. Client's outpatient psychiatrist recently changed client's medications as client reported belief her previous medication was making her more depressed. Client has been following through with practicing coping skills and she said this Sunday she went on a walk with her family and it helped her mood. After last week, client was considering not returning to IOP, but she shared she plans to stay which indicates hope and progress. Client continues to endorse a depressed mood, crying spells, anhedonia, negative self-talk, anxiety, poor self-esteem, and chronic suicidal thoughts. Client continues to deny any active suicidal ideations. Client to continue IOP to prevent further decompensation and increase emotional regulation. Time Stopped:: 12:10
--- NOTE | 2019-02-19 11:23 | BH.SGPN.GN ---
Behaviors/Verbalizations/Mental Status: [Pt eye contact fair to good, casually dressed, motor activity appropriate, speech normal rate and soft tone, mood anxious and depressed, constricted affect, thoughts linear and intact, no evidence of delusions or hallucinations.] Client Response/Progress/Benefit: [Pt receptive of session, provided some input throughout and was actively listening during discussion on Social Supports AEB taking notes and maintaining good eye contact. Pt worked with the group to make connections between the challenge activity and utilizing social supports in daily life. Reflected that a barrier in using current supports is communication. She remained attentive to discussion on different types of support and benefits each can provide. Pt worked with the group to identify strategies for developing new and enhancing current supports. Pt benefited from identifying a type of support she would like to improve and how this would aid in progress towards improving her own mental health. She indicated wanting to enhance self-help supports to better connect with peers experiencing similar circumstances. Plans to do so through opening up and communicating with new people. Pt to continue IOP level of care to prevent decompensation, reduce use of distorted thought patterns, and maintaining stability.] Narrative Note: []
--- NOTE | 2019-02-21 09:10 | BH.SGPN.GN ---
Behaviors/Verbalizations/Mental Status: [] Eye contact is good. Motor activity is appropriate. Appearance is neat. Speech is Appropriate. Mood is depressed. Affect is flat. Thoughts are linear and logical. No evidence of psychosis. Reviewed daily check in sheet and pt reported 3/5 for suicidal ideations and 0/5 for intent. Therapist notified Client Response/Progress/Benefit: [] Pt only spoke when prompted. Provided little feedback. Reports stress related to upcoming final for school. Depressed and withdrawn however was able to identify some positives for this weekend. Appears to be more hopeful. Utilizing some skills and reframing thoughts. Group provided some feedback and suggestions. Others empathized which was beneficial. Smiled at times. Progress noted. Will continue in IOP to maintain safety, stabilize mood, and decrease suicidal ideations. Narrative Note: []
--- NOTE | 2019-02-21 10:10 | BH.SGPN.GN ---
Behaviors/Verbalizations/Mental Status: [] Eye contact is good. Motor activity is appropriate. Appearance is casual. Speech is Appropriate. Mood is depressed. Affect is flat. Thoughts are linear and logical. No evidence of psychosis. Client Response/Progress/Benefit: [] Pt was an active participant in group discussion. Attentive during psycho-education on boundaries. Worked with fellow group members to define what it means to set up a boundary. Group identified what happens when we have poor boundaries which includes; burn-out, people taking advantage of you, people pleasing, and decreased time for ourself and our issues. Identified what the result of rigid boundaries would be which includes; no close relationships, isolation, and loneliness. Attentive during education on the types of boundaries which include; physical, emotional, intellectual, sexual, material, and time. Group also identified the purpose of healthy boundaries as they can; remove toxic relationships, protect relationships by developing clear expectations, give us permission to care for ourselves, help us develop and have healthy connections, makes us feel safe, and helps protect us from taking on other people's stressors. Benefited from group by increasing education and aware of boundaries and how they impact mental health. Will continue in IOP to maintain safety, prevent decompensation, and increase ability to cope with emotions. Narrative Note: []
--- NOTE | 2019-02-21 11:15 | BH.SGPN.GN ---
Behaviors/Verbalizations/Mental Status: []Client alert and oriented, casually dressed and groomed. Eye contact good. Motor activity appropriate. Speech within normal limits. Affect constricted, mood anxious, depressed. Thoughts linear, logical, no signs of hallucinations or delusions. Client Response/Progress/Benefit: []Client responded well to session, quiet, but participating when prompted. Client further processed the self-assessment activity and participated in the discussion of the different boundary setting styles. Client self-identified as rigid and porous when setting boundaries. Client shared it depends on the person, but she often does not open up to people and ?I definitely don?t ask for help.? Client shared her mental health is negatively impacted by her boundary styles because client does not ask for help due to feeling like a burden. Client acknowledged that this further reinforces depressive maintenance cycles. Client able to help the group identify characteristics of healthy boundaries such as saying no when appropriate, knowing one?s limits, and stating clear expectations. Client appeared to benefit from increasing awareness of her personal boundary style and from learning ways to increase healthy boundaries. Progress noted as client?s suicidal ideations have decreased this week and she reports use of coping skills. However, client continues to present with depressive and anxiety symptoms that impact functioning and can benefit from ongoing IOP.
--- NOTE | 2019-02-24 09:05 | BH.SGPN.GN ---
Behaviors/Verbalizations/Mental Status: []Client alert and oriented, casually dressed and groomed. Eye contact fair. Motor activity restless-at one point client was bent over. Speech within normal limits. Affect constricted, mood anxious. Thoughts linear, logical, no signs of hallucinations or delusions. Reviewed client?s symptom tracker. Client marked 3/5 for thoughts of suicide (which client reports is her baseline) and 0/5 for risk, plan, or intent as of 02/24/19. Client Response/Progress/Benefit: []Client responded well to session, attentive and receptive to feedback. Client reports feeling ?anxious? today. Client shared her current stressor is that she got on Facebook and ?saw that all my friends graduated this weekend.? Client reported this made her have negative, self-deprecating thoughts. The group helped client challenge those thoughts and encouraged client to avoid triggers that could reinforce self-deprecation. Client identified her positives which included not fighting with her mother over the weekend and getting all A?s on her finals. Client began to minimize her positives, but the group gently challenged client and client appeared receptive. Client appeared to benefit from challenging negative thoughts in the moment. Progress noted as shown by regulating her emotions around her mother, but she continues to struggle with negative self-talk that reinforces depression. Will continue IOP to further reduce suicidal ideations and increase mood stability.
--- NOTE | 2019-02-24 11:17 | BH.SGPN.GN ---
Behaviors/Verbalizations/Mental Status: [Pt alert and oriented, casual dress, grooming appropriate. Eye contact fair to good. Motor activity appropriate. Speech within normal limits. Affect constricted, mood dysthymic, anxious. Thoughts linear, logical, no signs of hallucinations or delusions.] Client Response/Progress/Benefit: [Pt responded well to session, actively listening throughout discussion as well as providing some insight. Participated in the challenge activity and helped the group process barriers associated with making change. Pt connected with participants identification of poor communication and self-confidence as barriers, whereas creating a plan helped the group adapt to change. Pt appeared to connect with discussion regarding overcoming the costs of change by identifying potential benefits via decisional balance sheet. Identified a change she would like to make to improve mental health. Pt?s goal is to decrease reliance on distraction as primary coping skill and begin to utilize other skills. Pt reported potential benefits of change as: developing new healthy habit, reducing isolation, and personal growth. Costs of not making the change included: continuing to remain isolated, depression, and lack of personal growth. Pt continues to struggle with self-criticism impacting thoughts and desire to isolate. Progress noted in pt ability to identify MH benefits of change, however recommended continued IOP to promote change behaviors, increase healthy coping skill repertoire, and decrease isolation causing depression.] Narrative Note: []
--- NOTE | 2019-02-24 13:55 | BH.MDN ---
Multi-Disciplinary Note - Note 60-min Individual Time Started:: 10:27 Date: 02/24/19 Purpose of session/treatment goals addressed:: The purpose of this session was to address current triggers, stressors, and symptoms. Another goal was to increase awareness of trauma reactions. Other topics included: homework review and cognitive restructuring. Eye Contact:: Good Motor Activity:: Appropriate Appearance:: Casual Speech:: Appropriate Mood:: Anxious Affect:: Congruent Thoughts:: Linear, Logical, No evidence of hallucinations/delusions noted Staff Interventions:: Therapist used active listening and open-ended questions to explore client's current symptoms, stressors, and triggers. Therapist reviewed client's homework and praised client for her follow through. Therapist used a psychoeducation worksheet to help client increase awareness of trauma reactions such as thoughts, feelings, and coping skills that client has experienced. Therapist processed client's trauma reactions and helped client see areas of growth. Therapist gave client homework. Client Response:: Client responded well to session, open to meeting with therapist. Client reports she is finally getting over a trigger from two weeks ago. Client shared I was throwing a pitty constitution party for myself, but now I realize I'm not alone. Client reports reduced suicidal ideation today which is positive. Client shared she has been stressed lately and this morning while driving to [facility] she felt highly anxious. Client able to identify triggers to her increased anxiety such as seeing her mother yesterday and stress from finals in school. Client also shared ongoing anxious and guilt about her relationship with her . Client able to challenge negative thoughts during session, rather than reinforcing self-hate. Client receptive to learning about trauma reactions and how they have impacted her life. Client reported relating to most of the trauma reactions and coping mechanisms. Client shared she has coped in certain ways to numb herself and she has also tried to please everyone. Client stated she has a hard time with men not liking her and shared it has caused issues with her self-esteem and marriage. Client reported it was helpful to gain more awareness of these reactions, so client can reduce shame and self-blame. Client shared it was helpful to look at coping skills she no longer uses such as cutting and using substances. Client recognized that she can make future positive changes, because she has made past positive changes. Client receptive to homework on journaling about her past positive changes and using those strengths to start making future changes. Client has been filling out her self-esteem journal and working on thought challenging as well. Risks/Concerns:: Client continues to report ongoing chronic, passive suicidal thoughts, but she denies any active suicidal ideations, plan, and intent as of 02/24/19. Future oriented and identifies her daughter as a reason to live. Progress Toward Goals/Plan:: Client reports improved mood and presents with improved affect from last week. Client shared she is ?finally getting past? last week?s exacerbation of symptoms and she has more awareness to what caused the trigger. Client worked on thought challenging and journaling over the weekend which demonstrates progress as well. Client continues to report anxiety, a depressed mood, and chronic, passive suicidal ideation. Client reports belief her suicidal ideations have decreased since last week. Client to continue IOP to prevent decompensation, reduce suicidal ideation, and improve emotional regulation. Client to complete homework for next week. Time Stopped:: 11:20
--- NOTE | 2019-02-25 08:15 | BH.MDN_ITS ---
Multi-Disciplinary Note - Note 60-min Individual Time Started:: 10:27 Date: 02/24/19 Purpose of session/treatment goals addressed:: The purpose of this session was to address current triggers, stressors, and symptoms. Another goal was to increase awareness of trauma reactions. Other topics included: homework review and cognitive restructuring. Eye Contact:: Good Motor Activity:: Appropriate Appearance:: Casual Speech:: Appropriate Mood:: Anxious Affect:: Congruent Thoughts:: Linear, Logical, No evidence of hallucinations/delusions noted Staff Interventions:: Therapist used active listening and open-ended questions to explore client's current symptoms, stressors, and triggers. Therapist reviewed client's homework and praised client for her follow through. Therapist used a psychoeducation worksheet to help client increase awareness of trauma re actions such as thoughts, feelings, and coping skills that client has experienced. Therapist processed client's trauma reactions and helped client see areas of growth. Therapist gave client homework. Client Response:: Client responded well to session, open to meeting with therapist. Client reports she is finally getting over a trigger from two weeks ago. Client shared I was throwing a pitty alliance party for myself, but now I realize I'm not alone. Client reports reduced suicidal ideation today which is positive. Client shared she has been stressed lately and this morning while driving to [facility] she felt highly anxious. Client able to identify triggers to her increased anxiety such as seeing her mother yesterday and stress from finals in school. Client also shared ongoing anxious and guilt about her relationship with her . Client able to challenge negative thoughts during session, rather than reinforcing self-hate. Client receptive to learning about trauma reactions and how they have impacted her life. Client reported relating to most of the trauma reactions and coping mechanisms. Client shared she has coped in certain ways to numb herself and she has also tried to please everyone. Client stated she has a hard time with men not liking her and shared it has caused issues with her self-esteem and marriage. Client reported it was helpful to gain more aware ness of these reactions, so client can reduce shame and self-blame. Client shared it was helpful to look at coping skills she no longer uses such as cutting and using substances. Client recognized that she can make future positive changes, because she has made past positive changes. Client receptive to homework on journaling about her past positive changes and using those strengths to start making future changes. Client has been filling out her self- esteem journal and working on thought challenging as well. Risks/Concerns:: Client continues to report ongoing chronic, passive suicidal thoughts, but she denies any active suicidal ideations, plan, and intent as of 02/24/19. Future oriented and identifies her daughter as a reason to live. Progress Toward Goals/Plan:: Client reports improved mood and presents with improved affect from last week. Client shared she is ?finally getting past? last week?s exacerbation of symptoms and she has more awareness to what caused the trigger. Client worked on thought challenging and journaling over the weekend which demonstrates progress as well. Client continues to report anxiety, a depressed mood, and chronic, passive suicidal ideation. Client reports belief her suicidal ideations have decreased since last week. Client to continue IOP to prevent decompensation, reduce suicidal ideation, and improve emotional regulation. Client to complete homework for next week. Time Stopped:: 11:20
--- NOTE | 2019-02-26 09:10 | BH.SGPN.GN ---
Behaviors/Verbalizations/Mental Status: [] Eye contact is good. Motor activity is appropriate. Appearance is neat. Speech is Appropriate. Mood is anxious. Affect is congruent. Thoughts are linear and logical. No evidence of psychosis. Reviewed daily check in sheet and pt reports SI of 4/5 and 0/5 for intent. Therapist notified. 3-4 appears to be baseline for patient. Client Response/Progress/Benefit: [] Pt spoke when prompted. Emotion for today is anxious. Overall check-in was positive. Able to identify some mental health wins. Was smiling and cooperative. Talked about upcoming stressors regarding school, however able to reframe stressors as positive. Did not elaborate much. Group provided feedback, support, and encouragement which she benefited from . Will continue in IOP to maintain safety, prevent decompensation, and increase healthy coping skills for depression. Narrative Note: []
--- NOTE | 2019-02-26 10:10 | BH.SGPN.GN ---
Behaviors/Verbalizations/Mental Status: [] Eye contact is good. Motor activity is appropriate. Appearance is casual. Speech is Appropriate. Mood is anxious. Affect is congruent. Thoughts are linear and logical. No evidence of psychosis. Client Response/Progress/Benefit: [] Pt was an active participant in group activity and discussion. Pt along with other group members provided input and suggestions when identifying what internal/external forces are and the impact that these forces have on their mental health. Was able to identify strategies used during the experiential activity which could be used in managing internal and external forces such as; creating a plan, teamwork, communication, listening to others, using coping skills when frustrated, learning from mistakes, and recognizing accomplishments. Benefited from increased awareness of difference between internal and external forces on mental health. Will continue in IOP to maintain safety, increase healthy coping skills, and prevent decompensation. Narrative Note: []
--- NOTE | 2019-02-26 11:20 | BH.SGPN.GN ---
Behaviors/Verbalizations/Mental Status: [Pt eye contact good, casually dressed and hair down which is out of normal baseline, motor activity appropriate, speech normal rate and tone, mood dysthymic, congruent affect, thoughts linear and intact, no evidence of delusions or hallucinations.] Client Response/Progress/Benefit: [Client receptive of session, listened attentively and provided more to discussion than typical baseline. Connected with discussion regarding the positive and negative forces that impact mental wellness and challenged her negative perspective when recognizing distorted thoughts. Client identified positive forces that aid in progressing toward mental health goals as: her daughter, her willingness to do the IOP program, working on increasing healthy coping skills, friends/family support. Client indicated negative forces that prevent progress include: self-criticism, her job, and use of self-comparison. Client stated wanting to focus on increasing self-love by identifying and challenging negative thoughts as well as reminding herself of personal progress. Client seemed to benefit from increased awareness of personal positive and negative forces in life and impact they have on mental health and wellness. Client to continue IOP level of care to decrease depression, increase healthy coping and communication, as well as prevent decompensation.] Narrative Note: []
--- NOTE | 2019-02-28 09:10 | BH.SGPN.GN ---
Behaviors/Verbalizations/Mental Status: [] Eye contact is good. Motor activity is appropriate. Appearance is casual. Speech is Appropriate. Mood is anxious. Affect is congruent. Thoughts are linear and logical. No evidence of psychosis. Reviewed daily check in sheet and pt reports suicidal ideation of 3/5 and intent 0/5. Therapist notified. This is baseline for pt Client Response/Progress/Benefit: [] Pt spoke when prompted. Attentive during group discussion. Smiling, cooperative, and joking at times. Emotion for today is ok. Shared some mental health wins and some upcoming stressors. Upcoming stressor is family event. Feels judged during these family events. Feels that others believe that she is stuck up because she is quiet and avoidant. She reports that this is related to anxiety. Group empathized and provided feedback and suggestions for how to improve those thoughts and increase socialization. Pt is hesitant to make changes or step outside of comfort zone, however presents as positive today. Progress noted per pt. Benefited from group support, encouragement, and feedback. Will continue in IOP to maintain safety, increase healthy coping skills, stabilize emotions. Narrative Note: []
--- NOTE | 2019-02-28 10:25 | BH.SGPN.GN ---
Behaviors/Verbalizations/Mental Status: [] Eye contact is good. Motor activity is appropriate. Appearance is casual. Speech is Appropriate. Mood is depressed. Affect is flat. Thoughts are linear and logical. No evidence of psychosis. Client Response/Progress/Benefit: [] Pt was an active participant in group discussion and activity. Group worked together to define coping skills and discussed the differences between healthy vs unhealthy coping skills as well as the difference between internal vs external coping skills. Group identified unhealthy coping skills as; avoidance, bottling up emotions, over-eating, not-eating, substance abuse, overindulgence, self-medication, self-harm, excessive sleep to avoid, escaping, isolation, and others. Reported the consequences of unhealthy coping skills as; issue/problem is not addressed or solved, leads to being unhealthy medically, can hurt relationships, impact career or job, cause increased guilt and shame, and they maintain unhealthy cycles or living. Benefited through increased education and awareness of the impact of healthy vs unhealthy coping skills on mental wellness as well as the importance of having a strong base of healthy internal and external healthy coping skills. Will continue in IOP to maintain safety, increase coping skills, and decrease depressive symptoms. Narrative Note: []
--- NOTE | 2019-02-28 11:27 | BH.SGPN.GN ---
Behaviors/Verbalizations/Mental Status: []Client alert and oriented, neatly dressed and groomed. Eye contact good. Motor activity appropriate. Speech within normal limits. Affect constricted, mood euthymic. Thoughts linear, logical, no signs of hallucinations or delusions. Client Response/Progress/Benefit: []Client responded well to session, taking notes and providing positive contributions. Client appeared to connect with the activity from second group and helped the group identify benefits of having a strong foundation of internal and external coping skills. Client helped the group discuss the different categories of coping skills and provided examples. Client reported she is learning not to just rely on distractions to manage her emotions. Client created a coping skills ?menu? for the five categories of coping skills. Client selected accomplishing small tasks, journaling, visualization, acknowledging positives, and reframing negative thoughts. Client appeared to benefit from increasing her repertoire of healthy coping skills. Client showing progress as shown by her report of improved mood and reduced suicidal ideation. However, client to continue IOP level of care as she continues to struggle consistent mood stability and challenging negative thoughts that reinforce depression.
--- NOTE | 2019-03-03 09:10 | BH.SGPN.GN ---
Behaviors/Verbalizations/Mental Status: [] Eye contact is poor. Motor activity is appropriate. Appearance is casual. Speech is Appropriate. Mood is depressed. Affect is flat. Thoughts are linear and logical. No evidence of psychosis. Reviewed daily check in sheet and pt reports 5/5 for suicidal ideations and 0/5 for intent. Therapist notified. Client Response/Progress/Benefit: [] Pt was tearful during most of her check-in. Reports that her Sunday was good as she spent the day in a lounge at the [employer]. Reports that she was there with her and his employer. States I manage my anxiety better around strangers. Tearful stating that she Cried all morning on Sunday. Had a event with her 's family in which she isolated, wore sunglasses, and overall reported severe anxiety. She did not utilize any coping skills during the event. Did not use any thought-stopping, reframing, mindfulness, distraction, and seeking support from her . She essentially let her anxiety and negative thought consume her. Regression noted. Tearful and ruminating on this. Group was supportive and provided feedback which she benefited from. Will continue in IOP to maintain safety, learn and consistently use coping skills, improve functioning, and decrease isolation. Narrative Note: []
--- NOTE | 2019-03-03 10:19 | BH.SGPN.GN ---
Behaviors/Verbalizations/Mental Status: [Client alert and oriented, casually dressed and groomed. Eye contact good. Motor activity appropriate. Speech within normal limits. Affect congruent to topic being discussed, mood euthymic. Thoughts linear, logical, no signs of hallucinations or delusions.] Client Response/Progress/Benefit: [Pt was an active participant in group discussion. Connected with quote, indicating that there are times pt has wanted to communicate but shut down and struggled to do so effectively. Pt agreed with peers that being vague, tone, and non-verbal communication can have negative impacts on relationships and reinforce mental health symptoms. Group discussed the MH benefits to having open and clear communication with support and providers. Group discussed the barriers that tend to impact clear and open communication which include: making assumptions, shutting down, non-verbal communication, tone of voice, and listening to respond not understand. Pt stated she is sometimes struggles to communicate effectively out of fear or anger and then shuts down rather than talk about what is upsetting her. Pt was attentive during psycho-education on communications styles (aggressive, passive, passive-aggressive, and assertive), provided input on the pros and cons to each communication style. Pt seemed to benefit from increased insight on how communication styles impact mental health. Pt to continue IOP level of care to continue utilization of healthy coping skills, challenge distorted thoughts, improve mood stability, and prevent decompensation.] Narrative Note: []
--- NOTE | 2019-03-03 11:21 | BH.SGPN.GN ---
Behaviors/Verbalizations/Mental Status: [Client alert and oriented, casually dressed and appropriately groomed. Eye contact good. Motor activity appropriate. Speech within normal limits. Affect congruent, mood euthymic. Thoughts linear, logical, no signs of hallucinations or delusions] Client Response/Progress/Benefit: [Client active participant AEB positive contributions and increased engagement throughout. Client reported she is either a passive or passive-aggressive communicator and that this has resulted in increased agitation and relationship tension as a result. Client took an active role during the discussion reviewing different communication styles and why each may be used, as well as how ineffective communication negatively impacts mental health and relationships. Client identified communication goal which is to practice taking breaks when recognizing she is becoming agitated when communicating with supports. Client seemed to benefit from increased insight into how current communication style impacts mental health and identifying strategies for increasing effective communication skills. Client progressing as shown by report of improved consistency of skill application and ability to engage and to identify connection with materials discussed. Will continue IOP tx to promote mood stability, further improve daily functioning, and prevent decompensation.] Narrative Note: []
--- NOTE | 2019-03-03 14:30 | BH.MTP_ITS ---
Treatment Plan Review Date of Admission:: 02/03/19 Date of Treatment Plan Review:: 03/03/19 Admitting Diagnoses:: Persistent depressive disorder F 34.1, rule out bipolar type II: Generalized anxiety disorder; history of substance abuse, in remission. Current Diagnoses:: Persistent depressive disorder F 34.1, rule out bipolar type II: Generalized anxiety disorder; history of substance abuse, in remission. Patient's Response to Treatment:: Client is responding mostly well to treatment as shown by her overall consistent attendance and increased insight to healthy coping skills. Client is quiet and often does not engage with peers, but client takes notes during group sessions. Client is open to meeting with this therapist for individual sessions and engages well in session. However, client?s symptoms continue to present as moderate to severe most days. Client struggles to see consistent mood stability for more than a few days and continues to report daily passive suicidal ideations. Client shared she has been using mostly distraction coping skills and self-reports variable use of thought challenging. Client continues to struggle with communicating her emotions to supports which reinforces isolative behaviors. Client also shared during session that at admission she minimized her symptoms on the DSM-5 symptom measure. At review, client?s overall DSM-5 symptoms scores increased, which as mentioned above, may be due to client?s self-reported minimizing. At review, client?s DSM-5 scores for depression decreased, going from 8/8 at admission to 7/8 at review. Additionally, client?s suicidal ideation score stayed the same 3/5. Client?s scores for anxiety decreased from 8/12 to 7/12 at review. Status of Current Problems and Symptoms: Client currently endorses a depressed mood, isolative behaviors, negative self-talk, crying spells, fatigue, anhedonia, and difficulty concentrating. Client recognizes her ambivalence about her marriage continues to be her biggest stressor and is impacting her mental he alth progress. Client reports feeling guilt, ?stuck,? and has a hard time communicating her emotions with family. Additionally, client reports school, work, and comparing herself to others continue to be stressors as well. Client also continues to feel anxious most days and has been isolating. Problem #1 Problem Name:: Pt. will decrease depressive symptoms, isolation, and suicidal ideations. Status of Goals:: Objective 1-partially complete. Client can identify healthy coping skills that can manage depression and break depressive maintenance cycles. However, client reports variable application of coping skills and reports a depressed mood most days. Client?s DSM-5 scores went from 8/8 at admission to 7/8 at review. Client also continues to report chronic daily passive suicidal ideations. Objective 2-not complete. Client has increased awareness of distortions and how negative self-talk impacts emotions and behaviors. However, client reports difficulty with believing her reframed thoughts and consistently challenging negative thoughts. Team Recommendations:: Client recommended to continue working on treatment goal to reinforce healthy coping skills, challenge self-deprecating talk, and prevent further decompensation. Client encouraged to communicate with her and reach out to supports. Client also encouraged to engage in behavioral activation to prevent isolation. Problem #2 Problem Name:: Pt. will increase emotional regulation and reduce anxiety symptoms. Status of Goals:: Objective 1-partially complete. Client can identify triggers and reports knowing calming coping skills, but she continues to struggle with inconsistent mood stability. Client?s DSM-5 scores for anxiety decreased from 8/12 at admission to 7/12 at review. Recommended to continue goal to further reduce symptoms. Objective 2-not complete. Client reports awareness of distortions, but client continues to struggle with consistently challenging thoughts that lead to rumination. Team Recommendations:: Client recommended to continue working on treatment goal to increase emotional regulation skills to further reduce anxiety. Client reports some improvement with increased awareness and use of distractions. However, client recognizes that her marriage and school continue to be major stressors that impact her mood dysregulation. Client recommended to practice thought challenging, mindfulness, and reach out to supports.
--- NOTE | 2019-03-03 14:55 | BH.MDN ---
Multi-Disciplinary Note - Note 60-min Individual Time Started:: 12:26 Date: 03/03/19 Purpose of session/treatment goals addressed:: The purpose of this session was to process current stressors and emotions while helping client increase decision making skills. Other topics included behavioral activation and thought challenging. Eye Contact:: Fair Motor Activity:: Restless - fidgeting with a tissue Appearance:: Casual Speech:: Soft Mood:: Anxious, Dysthymic Affect:: Congruent - tearful throughout session Thoughts:: Linear, Logical, No evidence of hallucinations/delusions noted Staff Interventions:: Therapist used active listening and open-ended questions to explore client's current symptoms, stressors, and triggers. Therapist provided emotional support and helped client process emotions from recent triggers. Therapist used strengths perspective and cognitive restructuring to combat client?s self-depreciating talk. Therapist used a decisional balance technique to increase decision making and self-awareness. Therapist helped client process which decision would have the most benefit. Therapist encouraged client to engage in a behavioral activation activity today to prevent isolation. Client Response:: Client responded well to session, tearful throughout. Client shared her weekend was positive and negative. Client stated Sunday and Sunday were both good days, but Sunday was really rough. Client shared she woke up tearful and was having negative thoughts related to her body-image. Client stated, ?I really let myself go.? Client stated her emotions continued to intensify throughout the day due to being around family and getting asked a million questions. Client stated she wishes she could isolate herself and not have to talk with people anymore. With gentle thought challenging, client able to see the costs of isolation. Client continues to struggle with communicating her emotions which results in client bottling things up until I have a meltdown. Client shared her conflicting feelings about her marriage continue to be a major stressor because she does not know if she should leave or stay. Client?s does not know how client is feeling about their relationship, which per client?s report, increases her guilt. Client reported she is worried about the potential what ifs which is keeping her from making a change. Client shared she feels ?stuck and miserable? currently. Client completed a decisional balance exercise and identified benefits and costs to her options. Client willing to further process her options and take into consideration the long-term impact of the costs on her mental health. Client shared today she wants to nap, but she recognizes this could maintain the depressive cycle. Client willing to eat lunch outside and do her hair and makeup tonight for behavioral activation. Risks/Concerns:: Client reports ongoing passive suicidal ideations, but she denies any active suicidal ideations, plan, or intent as of 03/03/19. Client identifies her daughter as a reason to live. Reports ability to maintain safety. Progress Toward Goals/Plan:: Client continues to make progress on her treatment goals, as shown by her increased self-awareness and self-report of practicing coping skills. However, client continues to struggle to maintain mood stability for longer than a few days. Client reports recent exacerbation in anxiety, passive suicidal thoughts, and depressive symptoms. Client able to identify triggers which is progress. Client recognizes her ambivalence about her marriage continues to be her biggest stressor and is impacting her mental health progress. Client receptive to further processing her options and engaging in a behavioral activation activity today. Therapist asked client if she would like to do a family session, but client declined at this time. Client to continue IOP to prevent decompensation and increase emotional regulation. Time Stopped:: 13:45
--- NOTE | 2019-03-05 14:50 | BH.COMM ---
Communication Note - Communication with Client Communication Note: Client cancelled her scheduled IOP session today due to not feeling well. Client reported I'm okay I'm just actually sick. Client reports plan to attend group on 03/07/19.
--- NOTE | 2019-03-07 09:10 | BH.SGPN.GN ---
Behaviors/Verbalizations/Mental Status: [] Eye contact is good. Motor activity is appropriate. Appearance is casual. Speech is Appropriate. Mood is depressed. Affect is flat. Thoughts are linear and logical. No evidence of psychosis. Reviewed daily check in sheet and reports 4/5 for suicidal ideations and 0/5 for intent. Therapist notified. Client Response/Progress/Benefit: [] Pt spoke when prompted. Emotion for today is tired. Shared that she had spent time with her mother. Reports strained relationship however believes that this recent interaction was positive. Unable to identify what made this interaction positive as opposed to before. Could not identify anything that she tried differently. Vague on use of skills and will often shrug if asked if she utilized any skills. Vague and not elaborating on her symptoms, progress, or stressors. DId not pressure pt to speak. Limited progress noted. Benefited from group support, encouragement, and discussions. Will continue in IOP to maintain safety, prevent decompensation, and increase coping skills. Narrative Note: []
--- NOTE | 2019-03-07 10:13 | BH.SGPN.GN ---
Behaviors/Verbalizations/Mental Status: []Eye contact is good. Motor activity is appropriate. Appearance is casual. Speech is Appropriate. Mood is depressed. Affect is flat. Thoughts are linear and logical. No evidence of psychosis. Client Response/Progress/Benefit: []Client responded well to session, listening to peers and contributing occasionally. Client participated in discussion of the importance of sleep and how it impacts mental health. Group able to identify benefits of sleep on mental health including: improved emotional regulation, improved attention, and better cognition. Client stated ?my sleep sucks? 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 Client participated in the discussion of the ?dos and don?ts? of sleep hygiene. The group identified strategies to improve sleep hygiene including: turning off electronics, reducing caffeine, having a routine, and engaging in relaxation strategies. Client participated in identifying things to avoid or things that could hinder sleep quality including: drinking alcohol before bed, exercising before bed, eating large meals, and spending time on electronics. Appeared to benefit from psychoeducation on sleep hygiene. Will continue IOP tx as client continues to report limited application of coping skills and ongoing issues with emotional dysregulation.
--- NOTE | 2019-03-07 13:20 | BH.COMM ---
Communication Note - Communication with Client Communication Note: Client opted to not see IOP psychiatrist for a follow up and reports plan to continue seeing her outpatient psychiatrist for ongoing care.
--- NOTE | 2019-03-12 09:10 | BH.SGPN.GN ---
Behaviors/Verbalizations/Mental Status: []Client alert and oriented, casually dressed and groomed. Eye contact fair. Motor activity appropriate. Speech within normal limits. Affect constricted, mood dysthymic. Thoughts linear, logical, no signs of hallucinations or delusions. Reviewed client?s symptom tracker. Client indicated a 3/5 for thoughts of suicide and 0/5 for risk, plan, and intent as of 03/12/19. Client reports 3/5 is her baseline and denies any active suicidal ideations. Client Response/Progress/Benefit: []Client responded well to session, providing supportive feedback and receptive to group feedback. Client reports feeling ?physically and mentally tired? today. Client shared belief she has bronchitis, so her energy levels have been low. 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 Client shared ?I should be happy, but I?m just pissed that I failed. I should be graduating.? Client reported belief that she is not smart enough which was why she failed, although the catalyst was exacerbated mental health symptoms. [employer] and group members helped client challenge negative, self-depreciating talk and helped client reframe her thinking. The group also helped client see the stigma of mental health and assisted client in looking at her situation with the same understanding she would use if she had been diagnosed with a physical health issue. Client appeared receptive to support AEB urdi. Client appeared to benefit from connecting with peers and challenging negative thoughts. Progress noted as client reports use of calming coping skills, but she continues to struggle with challenging negative thoughts and isolation.
--- NOTE | 2019-03-12 10:20 | BH.SGPN.GN ---
Behaviors/Verbalizations/Mental Status: []Client alert and oriented, casually dressed and groomed. Eye contact good. Motor activity appropriate. Speech within normal limits. Affect congruent-smiling and laughing, mood euthymic. Thoughts linear, logical, no signs of hallucinations or delusions. Client Response/Progress/Benefit: []Client was an active participant in group activity and discussion. Client connected with the topic and able to identify common barriers that keep people stuck from moving forward. Client identified her current reality which client described as ?being locked in a room away from my family.? Client shared in her current reality, her family wants to help, but client is isolating. Client shared her realistic, desired reality would be ?me unlocking myself from the room? and client bettering her relationship with her and daughter. Client shared she wants to get to a place where she can function and cope more consistently as client recognizes that isolation further intensifies her depressive symptoms. Worked with group to identify barriers to reaching desired reality which include; unrealistic expectations, all or nothing thinking, and negative thoughts of self. Benefited from group as client was able to identify current mental health state and barriers that are impacting progress.
--- NOTE | 2019-03-12 11:26 | BH.SGPN.GN ---
Behaviors/Verbalizations/Mental Status: [Pt eye contact good, casually dressed, motor activity appropriate, speech normal rate and soft tone, mood euthymic and anxious, congruent affect, thoughts linear and intact, no evidence of delusions or hallucinations.] Client Response/Progress/Benefit: [Pt was an active participant in group as evidenced by pt volunteering to participate in experiential activity as well as providing input throughout discussion. Pt identified negative self-talk, not wanting to be a burden, fear of opening up, and lack of motivation as current barriers to reaching desired reality. Through experiential activity group then worked together to develop strategies to overcome various obstacles. Pt identified starting with small things and building upon those, maintaining consistency in boundaries, and using positive self-talk as strategies to get closer to desired reality. Pt seemed to benefit from increased awareness of barriers and group brainstorming healthy strategies to overcome barriers. Progress noted with pt's improved level of engagement and positive approach to brainstorming strategies for success. Recommended continued IOP tx to increase communication with supports, reduce depressive symptoms through healthy skill application, and prevent decompensation.] Narrative Note: []
--- NOTE | 2019-03-14 09:07 | BH.SGPN.GN ---
Behaviors/Verbalizations/Mental Status: [Pt alert and oriented, casual dress, grooming appropriate. Eye contact fair. Motor activity appropriate. Speech within normal limits. Affect constricted, mood agitated, anxious. Thoughts linear, logical, evidence of rumination, no signs of hallucinations or delusions. Reviewed pt?s dx symptom tracker, pt reports SI at a score of 3/5; however, this is consistent with pt baseline and pt denies any plan, or intent as of this date. WIlling to follow-up with individual therapist for further assessment and safety planning.] Client Response/Progress/Benefit: [Pt actively listening throughout, remaining a mostly passive participant however willing to process with group. Emotion for today is agitated and patient discussed not really wanting to share too much. She went on to express that she had been in a bad mood since a negative exchange with her . 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 Pt went on to share feeling as though she is stuck and expressed having a difficult identifying any positives. She was willing to listen to fellow participants support however noted ?we just don?t have anything in common? and appeared to shut down. Pt ongoing marital issues continue to impact self-esteem levels and ability to challenge negative thoughts. Benefitted from supportive and structured group environment. Pt recommended continued IOP tx to promote healthy communication and boundaries, increase emotion regulation, and prevent decompensation. ] Narrative Note: []
--- NOTE | 2019-03-14 11:25 | BH.SGPN.GN ---
Behaviors/Verbalizations/Mental Status: []Client alert and oriented, casually dressed and groomed. Eye contact good. Motor activity appropriate. Speech within normal limits. Affect congruent, mood euthymic. Thoughts linear, logical, no signs of hallucinations or delusions. Client Response/Progress/Benefit: []Client attentive, did well to remain attentive during discussion and activity. She was actively listening and taking notes as group brainstormed on how fixed mindset thoughts experienced in the activity impacted ability to complete the task at hand. Client indicated she had fixed thoughts at the beginning of the activity, but by the end she thought ?it doesn?t have to be all or nothing.? Worked with group to identify important components of a growth mindset. With reflection and assistance from the group she was able to apply cognitive restructuring to reframe fixed thoughts, but she declined to share them with group. Benefitted from discussing benefits of growth mindset and strategies for reframing fixed thoughts. Progress noted in client?s engagement in group sessions and increased insight. However, client continues to struggle with thought challenging and isolative behaviors. Continued IOP recommended to increase ability to apply thought challenge skills, reduce isolation, and maintain safety.
--- NOTE | 2019-03-14 14:38 | BH.MDN ---
Multi-Disciplinary Note - Note 60-min Individual Time Started:: 10:23 Date: 03/14/19 Purpose of session/treatment goals addressed:: The purpose of this session was to address current symptoms, stressors, and barriers to progress. Other topics included opposite action, goal setting, and thought challenging. Eye Contact:: Fair Motor Activity:: Restless Appearance:: Casual Speech:: Soft Mood:: Anxious Affect:: Congruent Thoughts:: Linear, Logical, No evidence of hallucinations/delusions noted Staff Interventions:: Therapist used active listening and open-ended questions to explore client's current symptoms, stressors, and barriers. Therapist provided emotional support and helped client process emotions from recent triggers. Therapist used strengths perspective and cognitive restructuring to combat client?s self-depreciating and self-shaming language. Therapist discussed depressive maintenance cycles with client and used the delay, distract, decide technique to help client engage in opposite action and break out of depressive maintenance cycles. Therapist assessed for risk and client contracted for safety. Therapist provided client with options to increase her social support and improve communication with her . Therapist assisted client in setting a goal for the weekend. Client Response:: Client responded well to session, receptive to meeting with therapist. Client shared she is struggling to see progress because she continues to isolate. Client stated, I always revert back to isolating and distraction. Client and therapist discussed ways client has made progress to combat client's self-depreciating talk. Therapist helped client combat negative thoughts that reinforced worthlessness, shame, and guilt. Client able to acknowledge progress she has made by reviewing her DSM-5 scores. Client reported she has been able to focus more which has helped client return to things she enjoys such as reading. Client willing to work on creating a plan to prevent isolation. Client stated she tends to isolate the most on the weekends and evenings. Client willing to practice delay, distract, decide. Client's goal is to delay herself for 30 minutes and to walk on her treadmill as a distraction instead of going to bed. Client willing to make a list of questions to ask herself before isolating as well. The questions included: will this actually make me feel better? What small thing could I accomplish instead? Am I really tired? Client stated she plans to start up CrossFit classes again once a week which will help her reduce isolating as well. Client smiling and laughing at the end of session. Client reports ability to maintain safety and follow her crisis plan. Risks/Concerns:: Client reports ongoing chronic suicidal ideations, but she denies any active suicidal ideations or intent as of 03/14/19. Client admitted during session that she had increased suicidal ideations last week which resulted in client researching methods. Client denies any intention to act on her thoughts and shared I don't have the guts to do it. Client was willing to follow her crisis plan which included removing medications from her immediate access and keeping them near supports. Client was future oriented throughout session, talking about waiting to get back into [employer], go fishing this summer, and try kickboxing. Client identifies her daughter as a reason to live. Reports ability to maintain safety over the weekend. Progress Toward Goals/Plan:: Client continues to make mild progress on her treatment goals, as shown by her reduced DSM-5 scores for depression and anxiety. Client also reports improvement in focus and communicating at IOP. However, client continues to struggle to maintain mood stability for longer than a few days and self-reports ongoing isolation. Client acknowledges isolation leads to further depressive symptoms, but she stated difficulty with not ?turning to that skill.? Additionally, client continues to struggle with verbalizing her emotions and mental health to supports. Client endorses ongoing cognitive distortions and labeling by calling herself stupid and dumb when she shares her feelings, which client acknowledges reinforces client?s depression. Client to call therapist today for follow up on crisis plan. Client to continue IOP to prevent decompensation, maintain safety, and increase mood stability. Time Stopped:: 11:18
--- NOTE | 2019-03-14 15:45 | BH.COMM_ITS ---
Communication Note - Communication with Client Communication Note: Client called therapist to inform therapist that client follow her crisis plan and removed pills from her immediate access to a location where supports can hold her accountable. Client future oriented on the phone, improved mood, and reports plan to go to work [employer]. Client reports plan to attend group Sunday03/17/19.
== END 2019-03-14 23:59 ==
LOC: BHIOP 09:00
PROVIDERS: Family Provider Family Medicine; PCP Family Medicine; Referring Provider Psychiatry & Neurology Psychiatry; Visit Provider Psychiatry & Neurology Psychiatry
DX: F34.1 Dysthymic disorder (principal); F41.1 Generalized anxiety disorder; F43.22 Adjustment disorder with anxiety; Z63.0 Problems in relationship with spouse or partner; F19.11 Other psychoactive substance abuse, in remission; E66.9 Obesity, unspecified; Z79.899 Other long term (current) drug therapy
CPT/HCPCS: H0035; 90834; 90837; 90853

== ENCOUNTER 2019-03-17 09:00 | Outpatient (RCR) | payer BC, SELFPAY ==
--- NOTE | 2019-03-17 09:10 | BH.SGPN.GN ---
Behaviors/Verbalizations/Mental Status: [] Eye contact is poor. Motor activity is appropriate. Appearance is casual. Speech is Appropriate. Mood is depressed. Affect is flat. Thoughts are linear and logical. No evidence of psychosis. Reviewed daily check in sheet and pt reports 4/5 for suicidal ideations and 0/5 for intent. Therapist notified. Client Response/Progress/Benefit: [] Pt spoke when prompted. Reports poor sleep regarding to working 3rd shift. Did not provide much information during check-in and did not provided much input into group discussions. Appears distant and depressed today. Did not pressure pt to talk. Smiled at times during some group comments. Attentive. Benefited from group support, encouragement, and listening to group discussions. Will continue in IOP to maintain safety as pt's SI continues more days than not. Narrative Note: []
--- NOTE | 2019-03-17 10:25 | BH.SGPN.GN ---
Behaviors/Verbalizations/Mental Status: []Client alert and oriented, casually dressed. Eye contact good. Motor activity restless as shown by shaking leg and fidgety with hands. Speech within normal limits. Affect constricted, mood anxious and dysthymic. Thoughts linear, logical, no signs of hallucinations or delusions. Client Response/Progress/Benefit: []Pt passive participant, provided input when elicited by therapist and listened attentively to others. Pt appeared to connect with others comments during group discussion regarding mental health benefits of change and barriers in making those changes. Pt identified three small personal changes to improve mental health as: quitting second job because it's toxic, decreasing isolation, and increasing self-compassion. Pt identified barriers to making identified changes include: low motivation, hopelessness, and fear of change. Pt appeared to benefit from gaining awareness of personal changes that would improve mental health and the barriers keeping client stuck. Progress noted in pt's increased awareness of barriers that impact ability to make changes in life. Pt to continue IOP level of care to increase consistent application of skills, challenge distorted thoughts, maintain safety, and prevent decompensation. Narrative Note: []
--- NOTE | 2019-03-17 11:26 | BH.SGPN.GN ---
Behaviors/Verbalizations/Mental Status: [Eye contact is fair to good. Motor activity is appropriate. Appearance is casual. Speech is Appropriate, soft. Mood is anxious, depressed. Affect is congruent. Thoughts are linear and logical. No evidence of psychosis. ] Client Response/Progress/Benefit: [Pt was a semi-active participant throughout. She did well to participate in group activity and was receptive of instructions provided; however, provided minimal input to discussion. Pt actively listening throughout AEB taking notes and nodding throughout. Pt listened during group discussion identifying connections between activity and strategies for overcoming barriers to making changes. Pt did well to relate this back to promoting personal mental wellness. Identified a specific change she would like to make for her mental health, barriers to making that change, and a SMART goal to reach that change. Shared she would like to work on self-compassion by decreasing use of negative self-talk via use of a thought log. Discussed that this change would help to increase a positive mindset and reduce irritability. Benefited from group as she was able to identify strategies to overcome barriers to change and create a plan for implementing one small change promoting personal growth. Pt set to continue in IOP to maintain safety, increase application of coping skills, prevent decompensation, and stabilize mood.] Narrative Note: []
--- NOTE | 2019-03-17 15:18 | BH.MDN_ITS ---
Multi-Disciplinary Note - Note 60-min Individual Time Started:: 12:30 Date: 03/17/19 Purpose of session/treatment goals addressed:: The purpose of this session was to address current symptoms, stressors, and negative thinking that reinforces depression. Other topics included self-compassion and risk assessment. Eye Contact:: Fair Motor Activity:: Restless - shaking her leg throughout session Appearance:: Casual Speech:: Soft Mood:: Dysthymic Affect:: Congruent - tearful throughout, but also laughing when appropriate Thoughts:: Circular, No evidence of hallucinations/delusions noted Staff Interventions:: Therapist used active listening and open-ended questions to explore client's current symptoms, stressors, and negative thoughts. Therapist used strengths perspective and cognitive restructuring to combat client?s self-depreciating and self-shaming language. Therapist discussed self- compassion and the role it can play in self-forgiveness and mental health. Therapist assessed for risk and client contracted for safety. Therapist assisted client in reframing three negative thoughts and encouraged client to write them on notecards. Therapist gave client a book recommendation and asked client to read over her notecards for homework. Client Response:: Client responded well to session, tearful throughout. Client reports feeling more depressed today due to being tired, per her report. 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 Client stated there was conflict with a co-worker. Client reported a co-worker made a comment that triggered one of client's negative core beliefs. Client stated she feels like a burden and does not believe she has anything to give. Client willing and receptive to challenge her self-depreciating thoughts, and with therapist assistance, was able to identify 8 was in which client gives to the world. Examples included: being a nurse, being a mom, being a friend, giving knowledge, and being relia ble. Client shared her entire life she told herself she needed to be strong, which per client's definition, meant not crying and not letting things get to you. Client somewhat receptive to challenging this definition and recognized that being strong can also mean being understanding and empathetic. Client reported she is teaching her daughter to talk about and regulate her emotions, and client was able to acknowledge the double-standard she places on herself. Client used notecards to challenge three distortions that were reinforcing depression. Client reports plan to read them over tonight while she is at work. Client also willing to talk with a co-worker rather than bottle up her emotions. Client reported she wants to become more compassionate with herself and was receptive to the book recommendation by therapist. Risks/Concerns:: Client reports ongoing chronic suicidal ideations, but she denies any active suicidal ideations or intent as of 03/17/19. Client shared they're always there, but I'm not going to do anything. Client reports following through with moving her medications to a safe place. Client was future oriented throughout session, talking about all the things she wants to do with her daughter this summer. Client identifies her daughter as her reason for living I don't want to leave her. Progress Toward Goals/Plan:: Client?s progress continues to be mild as there are days where client makes strides, but overall client reports ongoing depressive symptoms and isolation. Client continues to endorse crying spells, avoidance, negative core beliefs of self, and chronic suicidal ideations. Client showing progress in using opposite action and following her crisis plan over the weekend. Client would like to work on increasing her self-compassion and challenging negative thoughts. Client acknowledges her self-criticism has only reinforced self-hate and depression, rather than motivating client. Client to continue IOP to prevent further decompensation, maintain safety, and increase mood stability. Time Stopped:: 13:45
--- NOTE | 2019-03-19 09:05 | BH.SGPN.GN ---
Behaviors/Verbalizations/Mental Status: []Client alert and oriented, causally dressed. Eye contact fair. Motor activity restless. Speech within normal limits. Affect constricted, mood depressed and anxious. Thoughts linear, logical, no signs of hallucinations or delusions. Reviewed client?s symptom tracker, pt indicates a 4/5 for suicidal ideation and a 0/5 for suicidal intention. Pt's suicidal ideation baseline is a 4 as shown by pt's previous symptom tracker scores. Pt indicates no intention to harm herself so she does not demonstrate imminent risk to self. Informed pt's IOP therapist. Client Response/Progress/Benefit: []Pt engaged in session as shown by pt providing input and openly processing with the group. Emotion for today is anxious. Pt initially minimized her mental health positive, but with encouragement pt identified her mental health positive as getting a positive work review yesterday. Pt needed assistance with identifying a second mental health positive. Eventually pt identified an additional positive as getting to IOP today. Pt reported current stressor is trying to balance her jobs, school, and mom duties. Progress hindered by pt continuing to overwhelm herself by taking on too many responsibilities, which doesn't give much time for pt to apply skills learned. Continued IOP tx recommended to increase utilization of healthy skills, prevent decompensation, and continue to challenge distorted thought patterns. Narrative Note: []
--- NOTE | 2019-03-19 10:25 | BH.SGPN.GN ---
Behaviors/Verbalizations/Mental Status: [Client alert and oriented, casually dressed. Eye contact fair to good. Motor activity WNL. Speech appropriate rate, soft tone. Affect constricted, mood depressed. Thoughts appearing ruminative, distracted by self. no signs of hallucinations or delusions.?] Client Response/Progress/Benefit: [Pt was attentive and actively listening during group discussion, AEB taking notes and maintaining eye contact, as well as as well as expressing connecting with others input. Pt continues to struggle with independently providing input to group but is making progress in willingness to engage in discussion when prompted. Pt appeared to connect with factors the group indicated may influence personal perspective and nodded as participants discussed the impact of past experiences and emotions on outlook. Despite limited input, Pt did well to continue to maintain engaged and identify strategies for overcoming and challenging unhealthy perspective. Shared that challenging her thoughts more actively would help to decrease negativity. Will continue in IOP to prevent decompensation, continue to re-enforce consistent application of healthy coping and communication skills, as well as increase emotion regulation. ] Narrative Note: []
--- NOTE | 2019-03-19 11:26 | BH.SGPN.GN ---
Behaviors/Verbalizations/Mental Status: []Client alert and oriented, neatly dressed and groomed- hair done. Eye contact good. Motor activity appropriate. Speech within normal limits. Affect congruent, mood neutral. Thoughts linear, logical, no signs of hallucinations or delusions. Client Response/Progress/Benefit: []Client responded well to session, attentive and contributing when prompted. Client listened and took notes as the group discussed the impact perspective has on one?s ability to recognize and utilize strengths. The group identified that a negative perspective causes people to minimize strengths, self-depreciate, and lose confidence in strengths. Client able to identify personal strengths she posses including: humor, being a hard worker, forgiveness, patience, honesty, and common sense. Client stated she does not always recognize these strengths though due to minimizing, unrealistic expectations of self, and negative thinking. Client helped the group identify strategies to make strengths easier to access. Some of these strategies included: looking at the big picture, mindfulness, keeping track of wins, and looking at the evidence against negative thoughts. Benefited from acknowledging personal strengths and coming up with strategies to access her strengths. Progress noted in client?s desire to have more self-compassion, but she continues to struggle with isolation and challenging negative self-talk.
--- NOTE | 2019-03-21 09:00 | BH.SGPN.GN ---
Behaviors/Verbalizations/Mental Status: [] Eye contact is poor. Motor activity is appropriate. Appearance is casual. Speech is Appropriate. Mood is depressed. Affect is flat. Thoughts are linear and logical. No evidence of psychosis. Reviewed daily check in sheet and pt reports suicidal ideation of 5/5 and intent 0/5.Therapist notified. Client Response/Progress/Benefit: [] Pt mostly spoke when prompted however did provide some feedback during group discussions. Reports that she started back to cross fit yesterday which she has not been to in several months. She was vague regarding what occurred however stated that during cross fit she had a conversation with her PCP (whom she reports is a friend). Notes that later on in the night her PCP called her due to some concerns. Again did not want to elaborate in group setting. She discussed benefits of getting back into cross fit and what motivated her yesterday. Some progress noted however again remians consistently high SI on a daily basis and is not attempting to utilize any skills, confront stressors, or attempt any changes. Benefited from support and encouragement. Will continue in IOP to maintain safety, stabilize emotions, and prevent further decompensation. Narrative Note: []
--- NOTE | 2019-03-21 10:10 | BH.SGPN.GN ---
Behaviors/Verbalizations/Mental Status: []Client alert and oriented, casually dressed and groomed. Eye contact fair. Motor activity appropriate. Speech within normal limits. Affect flat, mood irritable, dysthymic. Thoughts linear, logical, no signs of hallucinations or delusions. Client Response/Progress/Benefit: []Client was a mostly passive participant in group discussion, but she engaged when prompted. Worked together with the group to define a crisis and discuss examples of crisis situations. Client helped the group explore how coping with crisis in unhealthy ways can lead to worsening mental health symptoms. Group identified warning signs that one is in crisis which include; racing thoughts, increased energy, self-harm, apathy, uncontrollable worries, and difficulty concentrating. Client completed her own personal warning signs worksheet. Client identified her top three crisis warning signs to be isolating, uncontrollable worries, and rapid mood changes. Client shared she has gained more awareness of her warning signs, but she continues to struggle with managing her symptoms. Benefited from group by increasing awareness of crisis and personal warning signs. Progress continues to be variable based on the day/week. Client self-reports limited application of coping skills outside of group and ongoing isolation which may be contributing to her limited progress.
--- NOTE | 2019-03-21 14:46 | BH.MDN ---
Multi-Disciplinary Note - Note 45-min Individual Time Started:: 11:10 Date: 03/21/19 Purpose of session/treatment goals addressed:: The purpose of this session was to address current symptoms, stressors, and negative thinking that reinforces depression and rumination. Other topics included risk assessment and progressive muscle relaxation. Eye Contact:: Fair Motor Activity:: Restless Appearance:: Casual Speech:: Soft Mood:: Anxious, Irritable, Dysthymic Thoughts:: Linear, Logical, No evidence of hallucinations/delusions noted Staff Interventions:: Therapist used active listening and open-ended questions to explore client's current symptoms, stressors, and negative thoughts. Therapist used strengths perspective and cognitive restructuring to combat client?s self-depreciating language. Therapist used motivational interviewing techniques to help client gain awareness of barriers and how this impacts mental health. Therapist assessed for risk and client contracted for safety. Therapist led client in a progressive muscle relaxation exercise and assisted client in setting goal for the weekend. Therapist encouraged medication compliance and helped client see the consequences of medication non-compliance. Client Response:: Client responded somewhat well to session, short at times. Client reports being pissed after an encounter with her primary care physician last night. Therapist helped client process her frustrations and led client in a progressive muscle relaxation exercise. Client was utilizing self-depreciating language and cognitive distortions. Therapist attempted to help client combat and reframe her distortions. At first, client was dismissing the reframed thoughts, but then began to recognize the distorted thoughts. Client shared ?it?s like I have a negative voice inside my head.? Client reported she has been more depressed lately, and after further exploration, client shared she stopped taking her mood stabilizer about three weeks ago. Client stated because she has been more depressed she has had a don't care attitude which is preventing client from engaging in healthy coping skills and reaching out to supports. Client willing to talk about consequences of maintaining the depressive cycle and medication non-compliance. Client self-reports limited motivation to change at this moment. Client reports willingness to practice progressive muscle relaxation today, go tanning tonight, and reach out to a nurse friend this weekend. Risks/Concerns:: Client reports ongoing chronic suicidal ideations, but she denies any active suicidal ideations or intent as of 03/21/19. Client shared her daughter is keeping her here and she does not want to leave her. Client reports ability to maintain safety over the weekend and was future oriented. Client plans to work twice this weekend and was willing to reach out to a friend. Client disclosed that she did self-harm yesterday, but the intention was not to kill herself. Client has a history of self-harm as a form of emotional release. Client willing to engage in alternative coping skills over the weekend. Progress Toward Goals/Plan:: Client?s progress continues to depend on the day/ week and client has recently decompensated in depressive symptoms. Client disclosed to this therapist that she has not been taking her mood stabilizer which could be contributing to her mood dysregulation. Client acknowledged the consequences of not taking her medication, however, continues to not take them. Client continues to endorse crying spells, avoidance, negative core beliefs of self, and chronic suicidal ideations. Client self-reported lack of motivation to implement thought challenging and other coping skills which may be contributing to her halted progress as well. Client was willing to reconsider taking her mood stabilizer, practice progressive muscle relaxation, and reach out to a friend this weekend. Client to continue IOP to prevent further decompensation and maintain safety. Time Stopped:: 12:00
--- NOTE | 2019-03-24 09:05 | BH.SGPN.GN ---
Behaviors/Verbalizations/Mental Status: []Client alert and oriented, casually dressed and groomed. Eye contact fair. Motor activity restless. Speech within normal limits. Affect constricted, mood anxious, agitated. Thoughts linear, logical, no signs of hallucinations or delusions. Reviewed client?s symptom tracker, no risk for suicidal ideation, plan, or intent as of 03/24/19. Client's symptom tracker scores for suicidal ideation were within client's baseline. Client Response/Progress/Benefit: []Client responded well to session, providing support and emotional comfort to a peer. Client reports feeling ?stressed? today due to an upcoming appointment with her outpatient psychiatrist. Client shared she has not been medication compliant for the last few weeks, so she is nervous about the session. Client struggled at first to identify her mental health wins, but she was able to with group elicitation. Client?s wins included managing her emotions and getting through a difficult night at work and then opening up to a peer in group about her trauma experience. Client appeared to benefit from reflecting on positives and connecting with peers. Progress noted in client?s increased engagement and transparency with sharing her history. However, client continues to struggle with consistently utilizing coping skills. Client to continue IOP to prevent decompensation, maintain safety, and increase mood stability.
--- NOTE | 2019-03-24 10:20 | BH.SGPN.GN ---
Behaviors/Verbalizations/Mental Status: [] Eye contact is good. Motor activity is appropriate. Appearance is casual. Speech is Appropriate. Mood is depressed. Affect is flat. Thoughts are linear and logical. No evidence of psychosis. Client Response/Progress/Benefit: [] Pt was an active participant in group discussion and activity. Processed quote of the day with peers. Group worked together to identify barriers to making changes or taking action in their lives which included; lack of self-awareness, old habits, one's mindset, fear of failure, negative emotions (depression, anxiety, etc..), lack of resources, and other people. Group also identified that benefits of change which included; improved relationships, increased communication, improved mental wellness, increased confidence, and feelings of accomplishment. Discussion on the costs of not taking action or making changes which included; being stuck, no growth, lose friendships, impairs functioning, and not changes is a form of self-sabotage. Pt attentive during psychoeducation on the zones of change. Benefited from group through awareness of barriers and benefits to taking action towards mental wellness. Narrative Note: []
--- NOTE | 2019-03-24 14:18 | BH.MDN ---
Multi-Disciplinary Note - Note 30-min Individual Time Started:: 11:48 Date: 03/24/19 Purpose of session/treatment goals addressed:: The purpose of this session was to review stress management strategies and complete a maintenance plan. Other topics included hypomania warning signs and coping skills. Eye Contact:: Good Motor Activity:: Restless Appearance:: Casual Speech:: Appropriate Mood:: Anxious, Other - agitated Affect:: Congruent Thoughts:: Racing, No evidence of hallucinations/delusions noted Staff Interventions:: Therapist used open-ended questions to explore client's current stressors, symptoms, and triggers. Therapist assessed for risk and medication compliance. Therapist reviewed supports, warning signs, and coping skills with client to manage bipolar symptoms and prevent decompensation. Therapist created a maintenance plan worksheet and helped client complete it. Therapist used cognitive restructuring to combat client's distorted thoughts. Therapist gave client homework to finish her maintenance plan and engage in opposite action. Client Response:: Client responded well to session, open to meeting with therapist. Client reports her depressive symptoms and suicidal ideations have reduced since last session. Client reports fear she is starting to become hypomanic. Client and therapist explored client's warning signs for hypomania. Client labeled her warning signs from mild impact to severe impact. Client's warning signs included: increased risk-taking behaviors, racing thoughts, increased socialization and talking, more energy, improved mood, and hypersexuality. Client recognized she is still in the mild stage right now and was willing to work on creating a maintenance plan to prevent decompensation. Client able to identify coping skills and supports that can help client manage her depressive and hypomanic warning signs. Client reports medication compliance which can be a protective factor in maintenance. Client willing to exercise this week, practice mindfulness, and remove herself from unnecessary triggers. Client continues to use self-depreciating talk and was encouraged to utilize thought challenging. Client receptive to homework of finishing her maintenance plan. Risks/Concerns:: Client continues to have chronic, suicidal ideations. Client reports the frequency of her thoughts have reduced since last week. Client denies any active suicidal ideations, plan, or intent as of 03/24/19. Client reports ability to maintain safety and was future oriented with plans to work tonight. Progress Toward Goals/Plan:: Client?s progress continues to depend on the day/ week. Client reports reduced depressive symptoms since last session, but now she reports fear of hypomanic symptoms. Client shared she recognizes warning signs of increased talking, more urges to engage in risk taking behavior, and better mood. Client reported since last session she has started taking her mood stabilizer. Client?s suicidal ideations have reduced since last session. Client was more willing this week to utilize healthy coping skills such as exercise and follow her maintenance plan to prevent escalation. Client continues to struggle with mood instability and consistent application of coping skills. Client to continue IOP to promote mood stability and maintain safety. Time Stopped:: 12:15
--- NOTE | 2019-03-26 09:10 | BH.SGPN.GN ---
Behaviors/Verbalizations/Mental Status: []Client alert and oriented, casually dressed. Eye contact good. Motor activity appropriate. Speech within normal limits. Affect congruent, mood euthymic. Thoughts linear, logical, no signs of hallucinations or delusions. Reviewed client?s symptom tracker, patient indicated a 3/5, with 5 representing severe, for suicidal ideation and a 0/5 for suicidal intention. Pt's baseline for suicidal ideation is a 5/5 based on pt's previous symptom tracker scores. Pt does not appear to be imminent risk to self or others. Pt has chronic suicidal ideation with no intention to act on thoughts. Client Response/Progress/Benefit: []Pt provided input at times and openly processing with the group. Emotion for today is confused. Pt indicated that she believes she is experiencing some hypomanic symptoms. Pt stated she has noticed herself talking more, increased agitation, improved mood, and just feeling different. Pt reported she hasn't been taking her mood stabilizer for over 3 weeks, but plans to start her medication tonight. Pt stated she doesn't want to take the medication because currently she feels normal and when she is on mood stabilizers it makes her feel depressed all the time. Pt reported she knows there can be consequences to a full manic episode, but stated she doesn't experience too many consequences. Pt struggled with identifying positives, needing therapist assistance. Pt noted progress as having self-awareness of warning signs of brendan. Additional positive as taking care of herself by leaving work when she was feeling sick yesterday. Progress hindered by pt's medication non-compliance and inconsistent application of skills.. Continued IOP tx recommended to stabilize moods, prevent decompensation, and continue to improve emotion regulation skills. Narrative Note: []
--- NOTE | 2019-03-26 11:21 | BH.SGPN.GN ---
Behaviors/Verbalizations/Mental Status: [Client alert and oriented, casually dressed and appropriately groomed. Eye contact good. Motor activity appropriate. Speech within normal limits. Affect congruent, mood dysthymic. Thoughts linear, logical, no signs of hallucinations or delusions. ] Client Response/Progress/Benefit: [Client responded well to session, engaged in activity and actively listening as well as providing some input to discussion which is indicative of progress for pt. Group identified the benefits of addressing stigma which included; increased self-confidence and self-acceptance, improved willingness to ask for help, improved relationships and feeling more supported, and less self-deprecation. Client helped the group identify thoughts and behaviors people engage in that reinforce stigma. Client reported she has struggled with using self-deprecating talk and labeling language which reinforces stigma in her life. Group brainstormed strategies to combat social and perceived stigma which included; changing personal language used, sharing positive mental health related media, communicating with supports to help them better understand mental health, and increasing psychoeducation of self and others. Client reported she will practice replacing negative self-talk that often reinforces shame regarding her mental health as a means to combat stigma. Appeared to benefit from increasing awareness of ways her behaviors may reinforce stigma and how to combat stigma. Will continue IOP tx to further reduce depression and improve mood stability, as well as increase the use of calming skills.] Narrative Note: []
--- NOTE | 2019-03-28 10:15 | BH.SGPN.GN ---
Behaviors/Verbalizations/Mental Status: []Client alert and oriented, casually dressed and groomed. Eye contact good. Motor activity appropriate. Speech within normal limits, but more talkative than usual. Affect full, mood euthymic. Thoughts linear, logical, no signs of hallucinations or delusions. Client Response/Progress/Benefit: []Client responded well to session, attentive and engaged throughout. Client commented on the quote and shared to overcome anxiety one must face anxious situations. Client able to provide input to different types of anxiety disorders as well as the difference between ?normal? anxiety and anxiety disorders. Client helped the group identify examples of the various ways anxiety manifests and symptoms associated with thoughts, physical symptoms, and safety behaviors. Client gained awareness of her physical symptoms which included: increased heart rate, difficulty breathing, restlessness, nausea, and feeling foggy. Client also identified safety behaviors she has engaged in that provide short term relief but increase anxiety over time. Client?s safety behaviors included: reassurance seeking, avoidance, and isolation. Client appeared to benefit from gaining insight to her safety behaviors and how her anxiety manifests itself. Client?s progress continues to be variable based on the day/week which may be due to client?s self-report of medication non-compliance and lack of coping skill application. Client to continue IOP next week to promote mood stability and reinforce healthy coping skills.
--- NOTE | 2019-03-31 09:05 | BH.SGPN.GN ---
Behaviors/Verbalizations/Mental Status: [Eye contact is fair to good. Motor activity is appropriate. Appearance is casual. Speech is Appropriate. Mood is euthymic, anxious. Affect is congruent. Thoughts are linear and logical. No evidence of psychosis. Reviewed daily check in sheet and reports suicidal ideations at a level of 2/5, which is decreased compared to typical baseline of 4/5. Denies intent.] Client Response/Progress/Benefit: [Pt was attentive in group discussion, providing some feedback and engaging when others shared. Emotions for today is anxious and indicated that although she has been in the program several weeks now, she continues to feel anxious about sharing personally in group setting. Pt current mental health wins include going out for father?s day yesterday and following through with returning to medication compliance. Pt reflected that she used grounding techniques to maintain calm during dinner. Current stressor includes feeling as though her medications have caused her to feel numb or blunted; however, did well to refrain from stopping medications despite frustration regarding potential impact on mood. Benefited from support provided by the group and reflecting upon current wins. Will continue in IOP to maintain stability, improve consistent skill application, and prevent decompensation.] Narrative Note: []
--- NOTE | 2019-03-31 10:15 | BH.SGPN.GN ---
Behaviors/Verbalizations/Mental Status: []Client alert and oriented, casually dressed and groomed. Eye contact good. Motor activity appropriate. Speech within normal limits. Affect congruent, mood neutral. Thoughts linear, logical, no signs of hallucinations or delusions. Client Response/Progress/Benefit: []Client responded well to session, contributing occasionally. Client appeared to connect with the topic of personal pitfalls and how they can prevent mental health progress. Client identified pitfalls as ?unexpected dangers? as well as behaviors one engages in that can keep a person stuck. Client identified examples of pitfalls such as lack of support, not using coping skills, and fear of failure. Client reported to get on the ?right path? and overcome pitfalls, one needs self-awareness. Client participated in the group activity and reported ability to manage her emotions by reminding herself no to give up when things became frustrating. Client pointed out that the group did better when they used communication and emotional regulation skills. Client reflected that one can benefit from having self-awareness to avoid personal pitfalls. ?Client appeared to benefit from increasing self-awareness and applying in the moment coping. Client reports medication compliance and increased awareness of warning signs which demonstrates progress. Client to continue IOP to reinforce healthy coping skills and promote maintenance.
--- NOTE | 2019-03-31 15:17 | BH.MDN ---
Multi-Disciplinary Note - Note 45-min Individual Time Started:: 11:45 Date: 03/31/19 Purpose of session/treatment goals addressed:: The purpose of this session was to review cognitive restructuring strategies and continue working on her maintenance plan. Other topics included self-compassion and core beliefs. Eye Contact:: Good Motor Activity:: Appropriate Appearance:: Casual Speech:: Appropriate Mood:: Euthymic Affect:: Congruent - laughing/smiling Thoughts:: Linear, Logical, No evidence of hallucinations/delusions noted Staff Interventions:: Therapist used open-ended questions to explore client's current stressors, symptoms, and triggers. Therapist reviewed homework and used motivational interviewing techniques to help client see the costs and benefits of her choices and build discrepancy. Therapist used cognitive restructuring to combat client's distorted thoughts and beliefs of self. Therapist reviewed coping skills and self-compassion techniques. Therapist gave client homework to finish her maintenance plan and practice in the moment thought challenging. Client Response:: Client responded well to session, open to meeting with therapist. Client stated she no longer has hypomanic warning signs, but now she reports a low mood. Client shared ?I miss my highs.? Client and therapist discussed realistic expectations for mood stability. Client did not finish her maintenance plan and was encouraged to finish it by the end of the week. Client reported she almost had a panic attack last week because I realized I wasn't really using the skills and I didn't want you guys to not like me. Client shared she used progressive muscle relaxation which helped prevent client from having a panic attack. Client reports she has ongoing struggles with wanting people to like her. Client shared belief she often worries people will think she is stupid or incompetent. Client stated it is hard for her to catch herself being negative because I've always been this way. Client receptive to thought challenging by defining smart and seeing how client fits the criteria. Client also receptive to practicing mindfulness to help her catch when she is using negative self-talk statements. Client acknowledges she seeks external validation as a measure of her self-worth, so when she feels judged or not liked, client's mood changes. Client was encouraged to practice self-compassion and thought challenging. Risks/Concerns:: Client continues to endorse chronic, passive suicidal ideations, but today she reports her passive SI is below her usual baseline. This demonstrates progress. Client denies any active suicidal ideations, plan, or intent of as 03/31/19. Client future oriented and more positive today. Progress Toward Goals/Plan:: Client?s progress continues to depend on the day/ week. Client reports she was able to avoid a hypomanic episode, but now she reports a low mood. Client has shown strides towards treatment goals as shown by her reduced suicidal ideation, spending time with friends this weekend, improved sleep, and medication compliance. Client self-reported that she has realized her lack of consistent coping skill application was negatively impacting her progress. It appears that client is struggling with readiness to change her negative self-talk as shown by statements such as I've always been like this. However, she is increasingly receptive to practicing mindfulness to help catch herself being negative. Client continues to struggle with maintenance and can benefit from continuing IOP this week to formulate an aftercare plan. Time Stopped:: 12:25
--- NOTE | 2019-04-02 09:10 | BH.SGPN.GN ---
Behaviors/Verbalizations/Mental Status: [] Eye contact is good. Motor activity is appropriate. Appearance is casual. Speech is Appropriate. Mood is depressed. Affect is flat. Thoughts are linear and logical. No evidence of psychosis. Reviewed daily check in sheet and pt reports 3/5 for suicidal ideations and 0/5 for intent. Therapist notified and this is baseline. Client Response/Progress/Benefit: [] Pt spoke when prompted however was attentive during group discussions. Emotion for today is numb and tired. Shared that she had recent medication changes through her outpatient psychiatrist which she believes has caused tiredness. Pt wishes to have medications managed through outpatient rather than [facility] psychiatrist. Reports that she went to exercise last night. Participates in [employer] and reports that the people their are really supportive. Proud of her self for that. Also was able to complete a CEU for work yesterday. Progress noted per pt. Unclear if she is using any coping skills. When asked she simply smiles and shrugs. Benefited from group support and encouragement. Will continue in IOP to prevent decompensation, maintain safety, and stabilize mood. Tentative plan to discharge this week. Narrative Note: []
--- NOTE | 2019-04-02 10:15 | BH.SGPN.GN ---
Behaviors/Verbalizations/Mental Status: []Pt eye contact good, casually dressed, motor activity appropriate, speech normal rate and tone, mood anxious and dysthymic, congruent affect, thoughts linear and intact, no evidence of delusions or hallucinations. Client Response/Progress/Benefit: []Client passive participant during group discussion AEB pt not providing input despite being encouraged by therapist several times to share thoughts. Client appeared to connect with others comments about importance of communicating needs with support people as shown by pt nodding her head in agreement. Client listened to group brainstorm about potential consequences of not having a support system. Group identified benefits of social support as improving self-confidence, gaining different perspectives, being challenged, and comfort with knowing there is someone can talk to if in need. Client showed increased engagement during the group activity as shown by client communicating with peers and cooperating throughout. Appeared to benefit from gaining awareness of barriers that keep people from seeking social support as well as connecting with peers. Client to continue IOP to improve utilization of healthy coping, maintain safety and prevent decompensation. Narrative Note: []
--- NOTE | 2019-04-02 11:15 | BH.SGPN.GN ---
Behaviors/Verbalizations/Mental Status: []Client alert and oriented, casually dressed and groomed. Eye contact good. Motor activity appropriate. Speech within normal limits. Affect congruent-laughing and smiling, mood euthymic. Thoughts linear, logical, no signs of hallucinations or delusions. Client Response/Progress/Benefit: []Client responded well to session, active participant in discussion. Client helped the group discuss and identify different social supports as well as the benefits of different supports. The group identified examples of personal, self-help, professional, spiritual, and co-worker social supports. Group identified benefits of receiving social support to be; new ideas, accountability, someone to listen, non-judgmental stance, sense of belonging, and connection Client reported she wants to increase her self-help social support network and she plans to do this by asking for help more, but also trusting in herself to cope with symptoms. Client shared increasing this social support would make client feel confident. However, client shared her biggest barrier is fear of change. The group helped client identify strategies to overcome this barrier such as setting small goals and using opposite action. Client appeared to benefit from increasing understanding of different types of social support and identifying ways she can improve. Progress noted in client?s improved affect and mood. Client to continue IOP and discharge Sunday. Client can benefit from one more IOP day to reinforce coping skills and solidify aftercare plan.
--- NOTE | 2019-04-04 07:05 | BH.AFTERPLAN ---
Aftercare Plan - Demographics Treatment End Date:: 04/04/19 Psychiatrist:: Jose Angel Philip Psychiatrist Office #:: [phone] [facility]/IOP Therapist:: Michelle Villalba Therapist Phone #:: [phone] - Medications Home Medications: Home Medications Albuterol Inhaler [Ventolin Hfa (SP)] 1 - 2 puff INHALATION Q6H PRN PRN 11/18/18 Aripiprazole [Abilify] 15 mg PO DAILY 11/18/18 Norethindrone-E.estradiol-Iron [Lo Loestrin Fe 1-10 Tablet] 1 each PO DAILY 11/18/18 Prednisone [Deltasone] 60 mg PO DAILY #15 tablet 11/18/18 Sertraline HCl [Zoloft] 200 mg PO DAILY 11/18/18 - Plan Details Progress/Aftercare Plan Details:: It has not always been the easiest or smoothest road in treatment, but Elida has persisted. Elida has shown progress towards her treatment goals while in [facility] in several different ways. Elida has increased self-awareness of her triggers, warning signs, and maintenance cycles. Elida has learned the benefits of opposite action, self-compassion, and self-care. Elida has been able to apply coping skills to prevent further escalation of symptoms and she has started using thought challenging to combat distorted self-talk statements. Elida has increased awareness of the time, effort, and patience it takes to change thought patterns and core beliefs. Elida has made strides to reach out to supports and engage in activities she enjoys such as reading. Elida is encouraged to follow up with her outpatient therapist Stefani Rueda at [facility] on a weekly basis. Elida is also encouraged to continue with medication compliance and seeing Federica Slaughter at [facility] for ongoing psychiatric services. Elida can continue to increase consistent application of healthy coping skills and utilization of self-compassion. Lastly, Elida can benefit from ongoing work to challenge, replace, and reframe distorted thoughts that reinforce depression and negative core beliefs. Strategies for Success:: 1. Awareness is sosa. Awareness of triggers, warning signs, and negative thoughts. Also stay aware of behaviors and thoughts that keep you stuck. 2. Challenge those negative thoughts! Look at your thoughts from a different perspective. Would you say this to your daughter? WWMS (what would Michelle say)? 3. Opposite action! Often times our first reaction is to cope in an unhealthy way to a strong emotion. Engage in something that will help you feel and think differently. Examples: Cross[employer], read, go outside, walk, play with your daughter, listen to uplifting music, talk to a trusted support. 4. Use those mindfulness skills! Not just when in crisis, but daily. Examples include: progressive muscle relaxation, visualization, deep breathing, 5 senses, etc. 5. Consistency!! Consistently using coping skills, engaging in self-care, touching base with your emotions, exerting energy, and taking medications. 6. SELF-COMPASSION. Nothing changes if nothing changes. If we don't start treating ourselves with love and kindness, we will continue to feel the way we have always felt. Practice understanding, care, and love for yourself. 7. Exercise! CrossFit is something you have wanted to get back into more consistently, make time for it each week! 8. Give yourself some credit, you aren't where you want to be, but you aren't where you started! GOOD LUCK, ELIDA! - Appointments Appointments/Referrals to Other Services:: 1. Follow up with Federica Slaughter for ongoing psychiatric services. Last appointment was two weeks ago. 2. Follow up with Stefani Rueda at [facility] on a weekly basis. Next appointment is April 14.
--- NOTE | 2019-04-04 08:19 | BH.DS ---
Discharge Summary - Demographics Date of Admission:: 02/03/19 Discharge Date: 04/04/19 Presenting Problems at Admission:: Client is a 28-year-old female with a history of bipolar disorder and PTSD. Client was referred by her outpatient therapist due to worsening depressive symptoms and fleeting suicidal ideations. At admission, client reported her depression has been worsening since August of 2018. Client endorsed a depressed mood, anhedonia, increased sleep and appetite, lack of motivation, crying spells, suicidal ideations, isolative behaviors, and hopelessness. Client often reported thoughts of my and daughter would be better without me. Additionally, Client reported constant anxiety, ruminations, and restlessness. At time of admission, client?s symptoms were greatly impacting her educational, social, and familial functioning. Discharge Diagnoses:: Persistent depressive disorder F 34.1, rule out bipolar type II; Generalized anxiety disorder; history of substance abuse, in remission Reason for Discharge:: Client has made progress towards her treatment goals as shown by reduced suicidal ideations and depressive symptoms. Client reports readiness to return to weekly outpatient counseling and no longer meets criteria for [facility] level of care. - Treatment Progress During Treatment & Response: Client responded well to treatment as shown by her overall consistent attendance and report of increased self-awareness. Client started out shy and withdrawn from peers, but then became more comfortable and an active group member who often provided supportive statements. In individual sessions, client was receptive to learning new coping skills and was engaged in her treatment. For the first few weeks of treatment client struggled to see consistent progress due to self-reported variable application of coping skills, medication non-compliance, and limited following through with homework. Client reported in the last two weeks she has been applying coping skills and has been medication compliant and as a result client states ?I feel much better.? Client self-identified her progress as increased self-awareness of warning signs and negative thoughts, utilization of calming coping skills, and increased motivation to change unhealthy coping skills. Client also recognized that she made progress in using opposite action and reaching out to supports. At discharge, client?s DSM-5 symptoms scores decreased overall by a total of 23 points. Client?s DSM-5 scores for depression decreased, going from 8/8 at admission to 6/8 at discharge. Additionally, client?s suicidal ideation decreased from admission to discharge going from 3/4 to 2/4. Client?s anxiety has decreased since admission as well going from 05/26 to 3 at discharge. Issues Still to be Addressed:: Client has shown positive strides towards progress, especially in the last two weeks of treatment. Ongoing, client can continue to benefit from weekly counseling to promote consistency and reinforcement of healthy coping skills. Client self-reports history of inconsistent follow through and medication non-compliance in the past, so she can benefit from ongoing accountability. Client has started catching her negative, self-depreciating talk and she can continue to work on challenging and replacing cognitive distortions. Client can also continue working on increasing self-compassion and replacing negative core beliefs that reinforce low self-esteem and shame. Lastly, client wants to work on increasing her social supports and becoming more expressive of her emotions with those that she trusts. Discharge Recommendations/Instructions:: Client is recommended to follow up with her outpatient mental health providers for continuity of care. Client see a nurse practitioner, Federica Slaughter, at [facility] for medication management. Client recently had an appointment with Federica two weeks ago. Client's next appointment is in April. Client recommended to continue medication compliance. Client sees Stefani Rueda at [facility] for individual counseling. Client is recommended to follow up with this service on a weekly basis. Client's next appointment is 04/14/19. Lastly, client is encouraged to continue applying coping skills on a daily basis, practice self-care, and increase communication with social supports. Discharge Handout: Complete Discharge Handout with client on aftercare options and continuity of care.
--- NOTE | 2019-04-04 09:05 | BH.SGPN.GN ---
Behaviors/Verbalizations/Mental Status: []Client alert and oriented, casually dressed and groomed. Eye contact good. Motor activity appropriate. Speech within normal limits. Affect congruent, mood euthymic. Thoughts linear, logical, no signs of hallucinations or delusions. Reviewed client?s symptom tracker. Client's score for suicidal thoughts was 2/5 which is the lowest it has been while in IOP and below her baseline. Client denies plan, or intent as of 04/04/19. Client Response/Progress/Benefit: [] Client responded well to session, attentive and providing supportive statements. Client reports feeling ?ready, but nervous to leave.? Client shared she has found positive supports in [facility], but that she is excited to spend more time with her daughter. Client stated in the last two weeks she has ?actually applied the skills? and has seen improvement in her mental health. Client self-identified her progress as to be challenging negative thoughts more, increased use of coping skills, increased self-awareness, and understanding the benefits of self-compassion. Client reported she has benefited from using progressive muscle relaxation and the 5-senses. Client stated she plans to maintain progress by staying medication compliant and continuing to reach out to her supports. Client appeared to benefit from connecting with peers and reflecting on her progress. Client to discharge from [facility] today as she has made progress towards her goals and reports reduction in symptoms.
--- NOTE | 2019-04-04 10:15 | BH.SGPN.GN ---
Behaviors/Verbalizations/Mental Status: [Eye contact is good. Motor activity is appropriate. Appearance is casual. Speech is Appropriate. Mood is euthymic, making jokes. Affect is congruent with mood. Thoughts are linear and logical. No evidence of psychosis.] Client Response/Progress/Benefit: [Pt more actively engaged throughout than in previous group which displays progress in motivation to change and willingness to continue to work on improving management of mental health symptoms. She provided relevant input to the discussion on resiliency. Reflected that ?sometimes people seem tough or strong on the outside but are struggling as much as everyone else on the inside? and noted that managing those struggles is Resilience. She did well to participate in the challenge activity and made connections between it and barriers/supports to development of a resilient lifestyle, as sharing that distraction can impact ability to focus on what needs to be done. Additionally, did well to work within the small group setting to discuss the factors in building Resilience and benefitted from developing strategies for developing and promoting a resilient lifestyle. Pt identified that if we have ?self-awareness? we are more likely to recognize warning signs and?triggers. Shared she has been attempting to do this more often recently. Pt continues to make progress in managing depressive through increased motivation to begin application of healthy coping skills. Recommended continued individual outpatient counseling to prevent decompensation and continue to?promote ongoing consistency of healthy skill application, and emotion regulation.] Narrative Note: []
--- NOTE | 2019-04-04 11:20 | BH.SGPN.GN ---
Behaviors/Verbalizations/Mental Status: []Client alert and oriented, casually dressed. Eye contact good. Motor activity appropriate. Speech within normal limits. Affect congruent, mood anxious. Thoughts linear, logical, no signs of hallucinations or delusions. Client Response/Progress/Benefit: []Client engaged in session as evidenced by client providing input at times during discussion and listening attentively to others. Client engaged in the group activity as shown by client working cooperatively with others and encouraging others. When processing activity client identified maintaining hopeful outlook assisted the group with being successful during activity. Client reported she wants to work on maintaining a hopeful outlook by writing down 3 positives from the day every evening. Client appeared to benefit from identifying goal to improve personal resilience factors. Client has progressed on treatment goals and the plan is for client to discharge from [facility] level of care today. Narrative Note: []
--- NOTE | 2019-04-04 14:05 | BH.COMM_ITS ---
Communication Note - Communication with Client Communication Note: Therapist briefly met with client to give client her a ftercare plan, IOP surveys, DSM-5, and additional therapy worksheets. Therapist also reviewed client's maintenance plan to promote gains and gave client a quote collage for closure.
== END 2019-04-04 14:00 | disposition home or self-care (01) ==
LOC: BHIOP 09:00
PROVIDERS: Family Provider Family Medicine; PCP Family Medicine; Referring Provider Psychiatry & Neurology Psychiatry; Visit Provider Psychiatry & Neurology Psychiatry
DX: F34.1 Dysthymic disorder (principal); F41.1 Generalized anxiety disorder; F19.11 Other psychoactive substance abuse, in remission
CPT/HCPCS: H0035; 90832; 90834; 90837; 90853

== ENCOUNTER → 2019-05-12 | Outpatient (CLI) | payer BC, SELFPAY ==
[2019-05-16 11:26] LABS: HPV Reflexed? NOT INDICATED
== END | disposition home or self-care (01) ==
LOC: LABSPEC 13:18
PROVIDERS: Visit Provider Obstetrics & Gynecology
DX: Z12.4 Encounter for screening for malignant neoplasm of cervix (principal)
CPT/HCPCS: 87624; 88175; G0145

== ENCOUNTER → 2020-08-13 11:16 | Outpatient (CLI) | payer BC, SELFPAY ==
[2020-08-13 15:37] LABS: hCG Titer Quant., Serum 5656 mIU/mL (1-3)
[2020-08-17 03:06] LABS: Chlamydia By Nucleic Acid AMP Negative (Negative)
[2020-08-17 12:08] LABS: Gonococcus By Nucleic Acid AMP Negative (Negative)
== END ==
PROVIDERS: Visit Provider Obstetrics & Gynecology
DX: O02.81 Inappropriate change in quantitative human chorionic gonadotropin (hCG) in early pregnancy (principal); Z11.3 Encounter for screening for infections with a predominantly sexual mode of transmission; O20.0 Threatened abortion; Z3A.00 Weeks of gestation of pregnancy not specified
CPT/HCPCS: 36415; 84144; 84702; 87491; 87591

== ENCOUNTER → 2020-08-24 15:12 | Outpatient (CLI) | payer BC, SELFPAY ==
[2020-08-24 16:56] LABS: Color, Urine Yellow (Yellow); Glucose, Dipstick Normal (Normal); Ketone-Dipstick Negative (Negative); Leukocyte Esterase-Dipstick Negative /ul (Negative); Nitrite-Dipstick Negative (Negative); Occult Blood-Urine 25 /ul (Negative); Protein-Dipstick Negative (Negative); Urine Bilirubin Dipstick Negative (Negative); Urine Clarity Clear (Clear); Urine Urobilinogen Normal (Normal)
[2020-08-24 16:58] LABS: Absolute Lymphocyte Count 3.34 X10^3/uL (0.83-4.51); Absolute Neutrophil Count 13.1 X10^3/uL (2.0-7.7); Basophil# 0.07 X10^3/uL; Basophil% 0.4 % (0-1); Eosinophil# 0.11 X10^3/uL; Eosinophils% 0.6 % (0-5); Lymphocyte # 3.34 X10^3/ul (4.0); Lymphocyte % 18.8 % (19-41); Mean Corp Hgb Conc 31.8 g/dL (32-36); Mean Corpuscular Hgb 28.7 pg (27.0-32.0); Mean Corpuscular Volume 90.2 fL (81-99); Mean Platelet Vol. 11.3 fl (6.2-12.0); Monocyte# 1.06 X10^3/uL; NRBC Flagged by Analyzer 0 % (0-5); Neutrophil # 13.07 X10^3/uL (2.7-7.7); Neutrophil % 73.5 % (47-70); Platelet Count 385 K/mm3 (150-450); RBC Distribution Width CV 14.7 % (11.6-14.6); RBC Distribution Width SD 48.6 fl (35.1-43.9); Red Blood Count 4.88 M/mm3 (4.2-5.4); White Blood Count 17.8 K/mm3 (4.4-11.0)
[2020-08-24 17:19] LABS: Amphetamine Urine VISTA NEGATIVE (<1000 ng/mL); Barbiturate Urine VISTA NEGATIVE (< 200 ng/mL); Benzodiazepine Urine VISTA NEGATIVE (< 200 ng/mL); Cocaine Urine VISTA NEGATIVE (< 300 ng/mL); Ecstacy Urine VISTA NEGATIVE (< 500 ng/mL); Methadone Urine VISTA NEGATIVE (< 300 ng/mL); PCP Urine VISTA NEGATIVE (< 25 ng/mL); THC Urine VISTA NEGATIVE (< 50 ng/mL); Vista UDS pH Range 6
[2020-08-24 17:23] LABS: Thyroid Stim Hormone (TSH) 2.36 uIU/mL (0.358-3.74)
[2020-08-25 08:56] LABS: HIV - WCH Non-Reactive (Nonreactive); Hepatitis B Surface Antigen Non-Reactive (Nonreactive); Hepatitis C Antibody Non-Reactive (Nonreactive); Rubella IgG Reactive (Nonreactive); Vitamin D,25 Hydroxy 18.2 ng/mL
[2020-08-26 01:21] LABS: Prenatal RPR NONREACTIVE (NONREACTIVE)
== END ==
PROVIDERS: Visit Provider Obstetrics & Gynecology
DX: Z34.81 Encounter for supervision of other normal pregnancy, first trimester (principal)
CPT/HCPCS: 36415; 80307; 81002; 82306; 84443; 85025; 86703; 86762; 86803; 87340

== ENCOUNTER → 2020-09-06 | Outpatient (CLI) | payer BC, SELFPAY | END | disposition home or self-care (01) | LOC: LABSPEC 13:05 | PROVIDERS: Visit Provider Student in an Organized Health Care Education/Training Program | DX: R31.9 Hematuria, unspecified (principal) | CPT/HCPCS: 87086 ==

== ENCOUNTER → 2020-09-24 11:50 | Outpatient (CLI) | payer BC, SELFPAY ==
[2020-09-24 13:32] LABS: White Blood Count 17.2 K/mm3 (4.4-11.0)
== END ==
PROVIDERS: Visit Provider Obstetrics & Gynecology
DX: D72.829 Elevated white blood cell count, unspecified (principal)
CPT/HCPCS: 36415; 85048

== ENCOUNTER → 2020-11-17 11:59 | Outpatient (CLI) | payer OTHER, SELFPAY ==
[2020-11-17 13:18] LABS: Hematocrit 41.7 % (37-47); Hemoglobin 13.6 g/dL (12.0-15.0); Mean Corp Hgb Conc 32.6 g/dL (32-36); Mean Corpuscular Hgb 29.1 pg (27.0-32.0); Mean Corpuscular Volume 89.3 fL (81-99); Mean Platelet Vol. 11.9 fl (6.2-12.0); Platelet Count 285 K/mm3 (150-450); RBC Distribution Width CV 13.8 % (11.6-14.6); RBC Distribution Width SD 44.9 fl (35.1-43.9); Red Blood Count 4.67 M/mm3 (4.2-5.4); White Blood Count 19.6 K/mm3 (4.4-11.0)
== END ==
PROVIDERS: Visit Provider Obstetrics & Gynecology
DX: R53.83 Other fatigue (principal)
CPT/HCPCS: 36415; 85027

== ENCOUNTER → 2020-12-24 09:23 | Outpatient (CLI) | payer OTHER, SELFPAY ==
[2020-12-24 10:11] LABS: Hematocrit 36.6 % (37-47); Hemoglobin 12.3 g/dL (12.0-15.0); Mean Corp Hgb Conc 33.6 g/dL (32-36); Mean Corpuscular Hgb 30.1 pg (27.0-32.0); Mean Corpuscular Volume 89.5 fL (81-99); Mean Platelet Vol. 11.6 fl (6.2-12.0); Platelet Count 319 K/mm3 (150-450); RBC Distribution Width CV 14.4 % (11.6-14.6); RBC Distribution Width SD 46.1 fl (35.1-43.9); Red Blood Count 4.09 M/mm3 (4.2-5.4)
[2020-12-24 10:25] LABS: Glucose Challenge Gest 1H 50g 178 mg/dL (70-140)
== END ==
PROVIDERS: Visit Provider Obstetrics & Gynecology
DX: Z34.82 Encounter for supervision of other normal pregnancy, second trimester (principal)
CPT/HCPCS: 36415; 82950; 85027

== ENCOUNTER → 2020-12-31 09:54 | Outpatient (CLI) | payer OTHER, SELFPAY ==
[2020-12-31 11:35] LABS: Glucose GTT-Gestation. Fasting 68 mg/dL (<105)
[2020-12-31 13:04] LABS: Glucose GTT-Gestational 1 Hr 144 mg/dL (<190)
[2020-12-31 13:07] LABS: Glucose GTT-Gestational 2 Hr 150 mg/dL (<165)
[2020-12-31 13:49] LABS: Glucose GTT-Gestational 3 Hr 97 L (<145)
== END ==
PROVIDERS: PCP Family Medicine; Referring Provider Student in an Organized Health Care Education/Training Program; Visit Provider Student in an Organized Health Care Education/Training Program
DX: O24.912 Unspecified diabetes mellitus in pregnancy, second trimester (principal); Z3A.00 Weeks of gestation of pregnancy not specified
CPT/HCPCS: 36415; 82951; 82952

== ENCOUNTER → 2021-03-18 | Outpatient (CLI) | payer OTHER, SELFPAY | END | disposition home or self-care (01) | LOC: LABSPEC 13:40 | PROVIDERS: PCP Family Medicine; Visit Provider Student in an Organized Health Care Education/Training Program | DX: Z36.85 Encounter for antenatal screening for Streptococcus B (principal) | CPT/HCPCS: 87081 ==

== ENCOUNTER → 2021-03-30 | Outpatient (CLI) | payer OTHER, SELFPAY | END | disposition home or self-care (01) | LOC: LABSPEC 13:42 | PROVIDERS: PCP Family Medicine; Referring Provider Student in an Organized Health Care Education/Training Program; Visit Provider Student in an Organized Health Care Education/Training Program | DX: Z03.818 Encounter for observation for suspected exposure to other biological agents ruled out (principal) | CPT/HCPCS: 87635; C9803; U0005; U0003 ==

== ENCOUNTER 2021-04-04 05:00 | Inpatient (IN) | payer OTHER, SELFPAY ==
[2021-04-04] VITALS (23 sets, daily range): BP systolic 92–149; BP diastolic 55–78; PULSE 86–124; RESP 16–20; TEMP 36.1–37.2; O2SAT 95–100; BMI 45.1
[2021-04-04] MEDS: Lactated Ringers 1,000 ML 999 ML IV (05:25)
[2021-04-04] MEDS: Acetaminophen 500 MG Tablet 1000 MG PO ×4 (05:37→23:59)
[2021-04-04 05:38] LABS: Absolute Lymphocyte Count 3.66 X10^3/uL (0.83-4.51); Absolute Neutrophil Count 14.1 X10^3/uL (2.0-7.7); Basophil# 0.07 X10^3/uL; Basophil% 0.4 % (0-1); Eosinophil# 0.08 X10^3/uL; Eosinophils% 0.4 % (0-5); Hematocrit 38.5 % (37-47); Hemoglobin 12.6 g/dL (12.0-15.0); Lymphocyte # 3.66 X10^3/ul (0.83-4.51); Lymphocyte % 18.6 % (19-41); Mean Corp Hgb Conc 32.7 g/dL (32-36); Mean Corpuscular Hgb 29.2 pg (27.0-32.0); Mean Corpuscular Volume 89.3 fL (81-99); Mean Platelet Vol. 12.4 fl (6.2-12.0); Monocyte% 7.6 % (0-10); NRBC Flagged by Analyzer 0 % (0-5); Neutrophil # 14.12 X10^3/uL (2.7-7.7); Neutrophil % 71.9 % (47-70); Platelet Count 279 K/mm3 (150-450); RBC Distribution Width CV 14.8 % (11.6-14.6); Red Blood Count 4.31 M/mm3 (4.2-5.4); White Blood Count 19.6 K/mm3 (4.4-11.0)
[2021-04-04] MEDS: Lactated Ringers 1,000 ML 150 ML IV (06:25)
[2021-04-04] MEDS: Sodium Citrate/Citric Acid 30 ML UDC PO (07:14)
--- NOTE | 2021-04-04 07:22 | PCM.HP.OB ---
HPI - General General Date of Admission: 04/04/21 HPI Narrative 30-year-old G2, P1 at 39/3w, KALPANA 04/08/21 by 7 w US, admitted for repeat section. Denies LOF, VB, contractions. +FM. Patient is very anxious about surgery and her daughter's diagnosis and post-delivery care. Denies ZELAYA, vision changes, chest pain, dyspnea, nausea/emesis, RUQ pain. Complicated by: cleft lip/palate, failed 1hr 3hr wnl, obesity. Maternal Data Information Final KALPANA: 04/08/21 Final KALPANA [facility] <[facility] Medical History (Updated 04/04/21 @ 08:[address] Kathi Flor, DO) Anxiety Depression Obesity Home Medications calcium phos,dibas-vitamin D3 [Vitamin D (with calcium)] tab PO MDD supplement 04/04/21 [History Last Taken 04/03/21] [id number] [] tab PO 04/04/21 [History Last Taken 04/03/21] Allergy/AdvReac Type Severity Reaction Status Date / Time No Known Allergies Allergy Verified 04/04/21 05:18 Surgical History (Updated 04/04/21 @ 08:[address] Kathi Flor, DO) Previous section Social History (Updated 04/04/21 @ 08:[address] Kathi Flor, DO) Smoking Status: Former smoker alcohol intake: never substance use type: does not use History 2 Elective abortions 0 Hx Para 1 Spontaneous abortions 0 Hx # Term Pregnancies 1 Ectopic pregnancies 0 Hx # Pregnancies Multiple births 0 # of living children 1 ROS Constitutional Constitutional: Reports systems reviewed and no addt'l complaints, except as documented Eyes Eyes: Reports systems reviewed and no addt'l complaints, except as documented ENT HEENT: Reports systems reviewed and no addt'l complaints, except as documented Cardiovascular Cardiovascular: Reports systems reviewed and no addt'l complaints, except as documented Respiratory/Chest Respiratory/Chest: Reports systems reviewed and no addt'l complaints, except as documented Gastrointestinal Gastrointestinal: Reports systems reviewed and no addt'l complaints, except as documented Genitourinary Genitourinary: Reports systems reviewed and no addt'l complaints, except as documented Musculoskeletal Musculoskeletal: Reports systems reviewed and no addt'l complaints, except as documented Integumentary Integumentary: Reports systems reviewed and no addt'l complaints, except as documented Neurologic Neurologic: Reports systems reviewed and no addt'l complaints, except as documented Psychiatric Psychiatric: Reports systems reviewed and no addt'l complaints, except as documented Endocrine Endocrinology: Reports systems reviewed and no addt'l complaints, except as documented Hematologic/Lymphatic Hematologic/Lymphatic: Reports systems reviewed and no addt'l complaints, except as documented Allergic/Immunologic Allergic/Immunologic: Reports systems reviewed and no addt'l complaints, except as documented Vital Signs Vital Signs Vital Signs: 04/04/21 05:14 04/04/21 05:45 Temperature 97.7 F L Temperature Source Temporal Pulse Rate 124 H Pulse Rhythm Regular Respiratory Rate 18 Respiratory Effort Normal Blood Pressure 149/78 H Blood Pressure Mean 101 Blood Pressure Source Monitor Blood Pressure Position Sitting Blood Pressure Location Right Arm Pulse Ox 95 Oxygen Delivery Method Room Air Room Air Weight Weight: 108.409 kg Body Mass Index (BMI) 45.1 Physical Exam Const alert, oriented x3 and no apparent distress HEENT normocephalic Head and Scalp: atraumatic Eyes PERRL Neck full ROM Resp normal respiratory effort and clear to auscultation bilaterally Cardio regular rate and regular rhythm GI normal to inspection, nondistended, normoactive bowel sounds Inspection: gravid Extremity normal to inspection and no pedal edema Skin no rashes or lesions noted Neuro moves all extremities, no focal motor deficits and no sensory deficits noted Psych mental status grossly normal Labs Labs Labs: Blood Type O POSITIVE Antibody Screen NEGATIVE Hct 38.5 % (37-47) Hgb 12.6 g/dL (12.0-15.0) Rubella IgG Antibody Reactive (Nonreactive) Hep Bs Antigen Non-Reactive (Nonreactive) Neisseria gonorrhoeae DNA (SANJIV) Negative (Negative) HIV 1&2 Antibody Non-Reactive (Nonreactive) C.trachomatis DNA (PCR) Negative (Negative) Glucose 1 Hr 50 gm 178 mg/dL (70-140) H Group B Strep DNA Negative (Negative) Rhogam given: No Assessment & Plan (1) History of section: PLAN: 30 yo at 39/3 for repeat section and bilateral tubal ligation via salpingectomy. Routine orders. [employer]ant and respiratory to be present at delivery. For follow up with [facility] within 1 week of life. (2) complicated by cleft lip:
[2021-04-04] MEDS: Cefazolin 2 GM in 0.9% Normal Saline 100 ML IV (07:25)
--- NOTE | 2021-04-04 07:55 | FALS_PTH ---
PATIENT: OLEG BOLES LOC: [facility] U#:[id number] AGE/SX: 30/F ROOM: WP004 RE04/04/[address]: Dr. Kathi Flor DO : 1990 BED: 1 DIS: 04/06/2021 SPEC #: [id number] RECD: 04/04/21 10:53 STATUS: BOSSMAN REQ #: [id number] CHANCE: 04/04/21 07:[address]: Kathi Flor DEPT: SURGICAL PATHOLOGY RECD BY: Sosa Morales ENTERED: 04/04/21 12:14 SP TYPE: FALL TUBES OTHR DR: Dr. John Sweet MD Tissues: Fallopian tube Procedures: Surgery Specimen Level IV HEADER OPERATION: Tubal ligation PRE-OP DIAGNOSIS: Sterilization TISSUE SUBMITTED: Fallopian tubes MICROSCOPIC DIAGNOSIS Right fallopian tube, salpingectomy: Benign paratubal cyst. Left fallopian tube, salpingectomy: Benign paratubal cyst. AM:daily 04/05/2021 MICROSCOPIC DESCRIPTION Slides are reviewed. GROSS DESCRIPTION Received in fixative is one container labeled with the patient's name and designated bilateral fallopian tubes, suture on right tube. The specimen consists of bilateral fallopian tubes including fimbrial ends. The right fallopian tube measures 7 cm in length and 0.9 cm in diameter and left fallopian tube measures 8 cm in length and 1 cm in diameter. A paratubal cyst is noted close to the fimbrial end in the right fallopian tube measuring 0.7 cm in greatest dimension. Sections reveal unremarkable cut surfaces. [employer] sections are submitted in two cassettes as follows: 1 - right fallopian tube and paratubal cyst, 2 - left fallopian tube. / SJ:daily 04/04/21 TC:5 [facility]: [id number] x2
--- NOTE | 2021-04-04 08:35 | PCM.DC ---
Documented by User: Dr. Kathi Flor DO 04/04/21 08:36 Discharge Instructions Diet Discharge Diet: No restrictions Activity Discharge Activity: Return to Normal Activity and May Shower May resume sexual activity in: 4-6 weeks Weight Bearing Status: Weight bearing as tolerated Dressing / Incision Call your doctor if your incision/area has: Continuous Slow Oozing, Sudden Increased Bleeding, Increased Redness and Foul Smelling Discharge Call your doctor if you observe: Fever of 101 or Higher, Change in Color, Using more than 1 pad per hour, Shortness of breath, Dizziness, Swelling in the ankles, Chest pain and Calf discomfort Change Dressing in: 1 week Remove Dressing in: 1 week Cleanse incision/area with: Soap & Water Follow Up Care Please Follow Up With: Kathi Flor When: 2 week post operative, 6 week Test Results: Test results from this visit will be discussed in further detail at your follow-up appointment, if applicable. Discharge Plan Admission Admit Date/Time: 04/04/21 05:00 Primary Reason for Your Visit: section Attending Provider: Kathi Flor Primary Care Provider: John Sweet Instructions Patient Instructions: C Section Dc Discharge Orders/Prescriptions Prescriptions: New ibuprofen 600 mg Tablet 600 mg PO Q8H PRN PRN (Reason: pain) Qty: 30 RF: 0 oxycodone 5 mg Tablet 5 mg PO Q4H PRN PRN (Reason: Pain Score 4-10) 3 Days Qty: 10 RF: 0 Continued oyxbkfwj-tst-Mk-FA 1 mg Tablet PO RF: 0 calcium phos,dibas-vitamin D3 77-400 mg-unit Tablet PO MDD supplement RF: 0 Referrals / Follow Up: John Sweet MD [Primary Care Provider] - Disposition Disposition (needs filled in before D/C Order can be placed): Home, Self Care Documented by User: Dr. Buffy Sanchez MD 04/06/21 08:46 Discharge Plan Admission Admit Date/Time: 04/04/21 05:00 Primary Reason for Your Visit: section Attending Provider: Kathi Flor Primary Care Provider: John Sweet Instructions Patient Instructions: C Section Dc Discharge Orders/Prescriptions Prescriptions: New ibuprofen 600 mg Tablet 600 mg PO Q8H PRN PRN (Reason: pain) Qty: 30 RF: 0 oxycodone 5 mg Tablet 5 mg PO Q4H PRN PRN (Reason: Pain Score 4-10) 3 Days Qty: 10 RF: 0 Continued gawsjxpo-jsu-Dw-FA 1 mg Tablet PO RF: 0 calcium phos,dibas-vitamin D3 77-400 mg-unit Tablet PO MDD supplement RF: 0 Referrals / Follow Up: John Sweet MD [Primary Care Provider] - Disposition Disposition (needs filled in before D/C Order can be placed): Home, Self Care
--- NOTE | 2021-04-04 08:49 | OP.PCM_ITS ---
Details Operative Information Date of Procedure: 04/04/21 Pre-Operative Diagnosis: Curtis intrauterine at term. cleft lip and palate. Post-Operative Diagnosis: Curtis intrauterine at term. cleft lip and palate. Indications for : Repeat Elective Indications Narrative: 30-year-old G2, P1 at 39/3 weeks admitted for repeat section and bilateral tubal ligation. All risk, benefits, alternatives were discussed with the patient. Risks include but are not limited to: Risk of bleeding to the point of transfusion, infection, injury to surrounding tissue including bowel or bladder requiring prolonged Broussard catheter use, VTE, ICU admission. Patient also aware of risk of regret with bilateral salpingectomy. If she were to become she is to notify provider immediately. Patient aware and consented. Classification: Scheduled Type of Anesthesia: Spinal Antibiotic Given: Ancef 2 grams IV x1 Estimated Blood Loss: 800 cc Fluids Replaced: 1300 cc Findings Description of Procedure: Findings: Normal-appearing uterus, bilateral fallopian tubes and ovaries. Viable infant female with Apgars 7/8, cleft lip and palate. Procedure: Patient taken to the operating room spinal anesthesia placed. Patient placed in the supine position with a left lateral tilt and prepped and draped in the usual sterile fashion. Pfannenstiel skin incision made with scalpel carried down through subcutaneous tissue. Fascia nicked on either side of the midline and extended bilaterally with Cortes scissors. Merlyn clamps placed on the superior fascial edge which was tented up and underlying rectus muscles were dissected off bluntly and sharply at midline using Cortes scissors. Merlyn clamps moved to inferior fascial edge which was tented up and rectus muscles were dissected off in a similar fashion. 2 hemostats were utilized to separate rectus muscles superiorly, peritoneum entered with Metzenbaum scissors. Peritoneal entry extended bluntly. Bladder blade placed. Vesicouterine peritoneum identified very low. Low transverse uterine incision made with scalpel extended bluntly. Hand placed into the uterine cavity, head elevated. With the assistance of gentle fundal pressure head delivered followed by body. No nuchal cord. Cord clamped and cut, baby handed to nursing. Spontaneous delivery of placenta. Uterus exteriorized and cleared of all clots. Hysterotomy closed with a running locking stitch. Medial portion of the hysterotomy and was closed vertically with a running stitch. Second vertical imbricating stitch was then completed. Hysterotomy hemostatic with additional [id number]-ox-aeuab. At that time attention turned to fallopian tubes. Right fallopian tube identified carried from the cornua to the fimbriated end, grasped with [place] clamps. LigaSure device used to coagulate cut and removed fallopian tube. Left fallopian tube identified recorded fimbriated gross Jorge clamps. LigaSure device used to coagulate cut and remove left fallopian tube. Mesosalpinx bilaterally hemostatic. Uterus replaced into the abdominal cavity. Hysterotomy and mesosalpinx was hemostatic. Peritoneum identified and closed in a running stitch. Fascia closed with running stitch. Subcutaneous tissue reapproximated with interrupted stitches. Skin closed with running subcuticular stitch. At the end the procedure all needle, lap, sponge counts were correct x3. Urine output: 100 cc clear urine. Amniotic Fluid Description: Clear (1 minute): 7 (5 minute): 8 Complications Complications: None
[2021-04-04] MEDS: Oxytocin 30 units/NS 500 ml 30 UNITS/500 ML IV.SOLN 167 UNITS IV (08:55)
[2021-04-04] MEDS: Ketorolac 30 MG/ML Syringe IV ×3 (09:32→22:46)
[2021-04-04 10:53] LABS: Pathology Specimen OB SEE PATHOLOGY REPORT
[2021-04-04] MEDS: Senna/Docusate Sodium 1 Tablet PO (12:09)
[2021-04-04] MEDS: 0.9% Saline Lock 10 ML Syringe IV ×3 (12:11→22:48)
[2021-04-05] VITALS: BP 125/64; PULSE 92; RESP 18; TEMP 36.4; O2SAT 97
[2021-04-05 02:40] VITALS: PULSE 97; RESP 18; O2SAT 99
[2021-04-05] MEDS: Ketorolac 30 MG/ML Syringe IV (04:56)
[2021-04-05] MEDS: 0.9% Saline Lock 10 ML Syringe IV (04:56)
[2021-04-05] MEDS: Acetaminophen 500 MG Tablet 1000 MG PO ×4 (05:03→23:00)
[2021-04-05 05:07] VITALS: BP 121/45; PULSE 94; RESP 18; TEMP 36.5; O2SAT 96
[2021-04-05 05:10] LABS: Hematocrit 30.8 % (37-47); Hemoglobin 9.7 g/dL (12.0-15.0); Mean Corp Hgb Conc 31.5 g/dL (32-36); Mean Corpuscular Hgb 28.8 pg (27.0-32.0); Mean Corpuscular Volume 91.4 fL (81-99); Mean Platelet Vol. 12.1 fl (6.2-12.0); Platelet Count 213 K/mm3 (150-450); RBC Distribution Width CV 15.2 % (11.6-14.6); RBC Distribution Width SD 50.4 fl (35.1-43.9); Red Blood Count 3.37 M/mm3 (4.2-5.4); White Blood Count 14.4 K/mm3 (4.4-11.0)
[2021-04-05 08:00] VITALS: BP 123/78; PULSE 95; RESP 18; TEMP 36.6; O2SAT 99
--- NOTE | 2021-04-05 08:23 | PCM.PN.OB ---
Subjective Subjective Postop day 1. Pain well controlled. Lochia minimal. Baby doing well in special care. Objective Data Objective Data Vital Signs: Vital Signs Temp Pulse Resp BP Pulse Ox 97.7 F L 94 18 121/45 H 96 04/05/21 05:07 04/05/21 05:07 04/05/21 05:07 04/05/21 05:07 04/05/21 05:07 Oxygen Delivery Method Room Air Weight: 108.409 kg Body Mass Index (BMI) 45.1 Intake & Output: Intake and Output for Last 24 Hours 04/03/21 04/04/21 04/05/21 23:59 23:59 23:59 Intake Total 3610.0 / 3610.0 Output Total 825 / 825 Balance 2785.0 / 2785.0 Lab / Micro Data Result Diagrams: 04/05/21 05:00 Labs: Laboratory Results - last 24 hr 04/05/21 05:00 WBC 14.4 H RBC 3.37 L Hgb 9.7 L Hct 30.8 L MCV 91.4 MCH 28.8 MCHC 31.5 L RDW Std Deviation 50.4 H RDW Coeff of Pk 15.2 H Plt Count 213 MPV 12.1 H Physical Exam Const alert, oriented x3 and no apparent distress HEENT normocephalic Head and Scalp: atraumatic Neck full ROM Resp normal respiratory effort Cardio regular rate and regular rhythm GI normal to inspection, nondistended, normoactive bowel sounds GI Narrative: Dressing clean and dry. Uterus 2 cm below umbilicus. Extremity Extremity Narrative: Minimal pedal edema Skin no rashes or lesions noted Psych mental status grossly normal Assessment & Plan (1) Delivery by section: PLAN: Postop day 1 status post repeat section bilateral tubal ligation. Complicated by acute blood loss anemia secondary to surgery (iron supplement at home), cleft lip and palate (baby doing well in special care nursery, no longer on supplemental oxygen), obesity. Home POD2-3 (2) state: (3) complicated by cleft lip:
[2021-04-05] MEDS: Senna/Docusate Sodium 1 Tablet PO (09:19)
[2021-04-05] MEDS: Ibuprofen 600 MG Tablet PO ×3 (09:19→20:44)
[2021-04-05] MEDS: Enoxaparin 40 MG/0.4 ML Syringe SC ×2 (09:20→22:56)
[2021-04-05 14:50] VITALS: BP 122/69; PULSE 90; RESP 18; TEMP 36.6
[2021-04-05] MEDS: oxyCODONE 5 MG Tablet PO ×2 (15:10→22:35)
[2021-04-05 20:37] VITALS: BP 133/85; PULSE 98; RESP 18; TEMP 36.4; O2SAT 98
[2021-04-06 01:33] VITALS: BP 118/65; PULSE 88; RESP 16
[2021-04-06] MEDS: Ibuprofen 600 MG Tablet PO ×3 (01:36→15:05)
[2021-04-06] MEDS: Acetaminophen 500 MG Tablet 1000 MG PO ×2 (06:26→12:58)
[2021-04-06 08:22] VITALS: BP 142/74; PULSE 90; RESP 18; TEMP 36.5; O2SAT 98
--- NOTE | 2021-04-06 08:46 | DS.PCM_ITS ---
Providers Date of Admission: 04/04/21 Primary Care Physician: Dr. John Sweet MD Reason For Visit: REPEAT C SECTION Diagnosis Discharge Diagnosis (1) Delivery by section: Status: Acute Plan: Routine postop care D/C home later today if clear for discharge (2) state: Status: Acute Code(s): Z39.2 - Encounter for routine follow-up Plan: Rh positive Rubella immune (3) complicated by cleft lip: Status: Acute Code(s): O35.8XX0 - Maternal care for other (suspected) abnormality and damage, not applicable or unspecified Medications at Discharge Home Medications calcium phos,dibas-vitamin D3 tab PO MDD supplement 04/04/21 gqwcezzq-yxh-Eh-FA tab PO 04/04/21 ibuprofen 600 mg PO Q8H PRN PRN #30 tab 04/06/21 oxycodone 5 mg PO Q4H PRN PRN 3 Days #10 tab 04/06/21 Hospital Course Operations section Procedures None Summary of Care Provided Hospital Course: 30yo admitted at 39 3/7 weeks gestation for scheduled repeat section and tubal sterilization. She had an uncomplicated C- section and bilateral salpingectomy. Her postoperative course was unremarkable and she was discharged to home on postoperative day #1. Physical Exam Narrative Const alert, oriented x3 and no apparent distress Resp normal respiratory effort, normal air movement and clear to auscultation bilaterally Cardio regular rate, regular rhythm, S1 normal heart sound and S2 normal heart sound GI normal to inspection, nondistended, normoactive bowel sounds, soft to palpation, non-tender and non-distended GI Narrative: incisional dressing c/d/i Manual OB Exam: other lochia scant Uterus Palpation: uterus fundus firm Extremity no calf tenderness Extremity Narrative: +1 b/l LE edema Weight / BMI Weight Weight: 108.409 kg Body Mass Index (BMI) 45.1 ABG / Lab / Microbiology Data Result Diagrams: 04/05/21 05:00 D/C Instructions Discharge Diet: No restrictions May resume sexual activity in: 4-6 weeks Weight Bearing Status: Weight bearing as tolerated Call your doctor if your incision/area has: Continuous Slow Oozing, Sudden Increased Bleeding, Increased Redness and Foul Smelling Discharge Call your doctor if you observe: Fever of 101 or Higher, Change in Color, Using more than 1 pad per hour, Shortness of breath, Dizziness, Swelling in the ankles, Chest pain and Calf discomfort Cleanse incision/area with: Soap & Water Please Follow Up With: Kathi Flor When: 2 week post operative, 6 week Meaningful Use Info Meaningful Use Diagnoses (Choose all that apply): None applicable Discharge Plan Admission Admit Date/Time: 04/04/21 05:00 Primary Reason for Your Visit: section Attending Provider: Kathi Flor Primary Care Provider: John Sweet Instructions Patient Instructions: C Section Dc Discharge Orders/Prescriptions Prescriptions: New ibuprofen 600 mg Tablet 600 mg PO Q8H PRN PRN (Reason: pain) Qty: 30 RF: 0 oxycodone 5 mg Tablet 5 mg PO Q4H PRN PRN (Reason: Pain Score 4-10) 3 Days Qty: 10 RF: 0 Continued bhpvdsiz-jvt-Ik-FA 1 mg Tablet PO RF: 0 calcium phos,dibas-vitamin D3 77-400 mg-unit Tablet PO MDD supplement RF: 0 Referrals / Follow Up: John Sweet MD [Primary Care Provider] - Disposition Disposition (needs filled in before D/C Order can be placed): Home, Self Care Subjective Subjective: Doing well, oob and ambulating. Tolerates PO without nausea or vomiting. Passing flatus, no bowel movement. Denies heavy lochia. She is sore with most discomfort on transferring, has taken Oxycodone x 2 since .
[2021-04-06] MEDS: Senna/Docusate Sodium 1 Tablet PO (10:48)
[2021-04-06 15:00] VITALS: BP 138/81; PULSE 83; RESP 16; TEMP 36.6; O2SAT 98
== END 2021-04-06 15:15 | disposition home or self-care (01) | DRG 785 ==
PROVIDERS: Admitting Provider Student in an Organized Health Care Education/Training Program; PCP Family Medicine; Referring Provider Student in an Organized Health Care Education/Training Program; Visit Provider Student in an Organized Health Care Education/Training Program
PROC: 10D00Z1 Extraction of Products of Conception, Low, Open Approach (ICD-10-PCS; CPT 59514; principal; 2021-04-04 07:15)
DX: O34.211 Maternal care for low transverse scar from previous cesarean delivery (principal); Z37.0 Single live birth; O99.214 Obesity complicating childbirth; E66.9 Obesity, unspecified; Z3A.39 39 weeks gestation of pregnancy; Z87.891 Personal history of nicotine dependence; Z30.2 Encounter for sterilization
CPT/HCPCS: 85025; 85027; 86850; 86900; 86901; 88302; 88305; 99218; 99251; J7120; A4216; G0378; G0463; J2405

== ENCOUNTER → 2021-07-29 09:45 | Outpatient (CLI) | payer OTHER, SELFPAY ==
[2021-07-29 10:28] LABS: D-Dimer Quantitative (DVT/PE) 0.74 FEU/ug/m (0.27-0.49)
== END ==
PROVIDERS: PCP Family Medicine; Visit Provider Nurse Practitioner
DX: R07.9 Chest pain, unspecified (principal); U09.9 Post COVID-19 condition, unspecified; R06.02 Shortness of breath
CPT/HCPCS: 85379

== ENCOUNTER → 2022-10-23 | Outpatient (CLI) | payer OTHER, SELFPAY ==
[2022-10-23 11:05] LABS: D-Dimer Quantitative (DVT/PE) 0.31 FEU/ug/m (0.27-0.49)
== END | disposition home or self-care (01) ==
PROVIDERS: PCP Family Medicine; Referring Provider Nurse Practitioner; Visit Provider Nurse Practitioner
DX: Z86.711 Personal history of pulmonary embolism (principal); R07.9 Chest pain, unspecified; M79.661 Pain in right lower leg; R60.0 Localized edema
CPT/HCPCS: 85379

== ENCOUNTER 2023-01-04 11:20 | Emergency (ER) | payer OTHER, SELFPAY ==
[2023-01-04 11:24] VITALS: BP 178/109; PULSE 123; RESP 18; TEMP 36.3; O2SAT 99; BMI 43.8
--- NOTE | 2023-01-04 11:40 | ED.VIS.FEGU ---
HPI HPI - Female History of Present Illness Chief Complaint: Complaint Narrative Narrative: 32-year-old female here with left lower quad abdominal pain that radiates to the back. States is going on for couple weeks. Notes hematuria. States symptoms are constant severe without alleviating factors PFSH PFSH Medical History (Updated 01/04/23 @ 14:[address] Reymundo Velazquez, DO) Anxiety Depression Obesity Home Medications calcium phosphate,dibasic 77 mg-vitamin D3 400 unit tablet tab PO 04/04/21 [History Last Taken 04/03/21] lfmnftxp-myt-Dv-FA 1 mg tablet tab PO 04/04/21 [History Last Taken 04/03/21] ibuprofen 600 mg tablet 600 mg PO Q8H PRN PRN pain #30 tabs 04/06/21 [Rx Last Taken Unknown] oxycodone 5 mg tablet 5 mg PO Q4H PRN PRN Pain Score 4-10 3 days #10 tabs 04/06/21 [Rx Last Taken Unknown] cephalexin 500 mg capsule 500 mg PO Q12 5 days #10 CAPSULES 01/04/23 [Rx Last Taken Unknown] ondansetron 4 mg disintegrating tablet 4 mg PO Q8H PRN PRN Nausea #20 tabs 01/04/23 [Rx Last Taken Unknown] oxycodone 5 mg capsule 5 mg PO Q6H 5 days #20 caps 01/04/23 [Rx Last Taken Unknown] tamsulosin 0.4 mg capsule 0.4 mg PO DAILY #5 CAPSULES 01/04/23 [Rx Last Taken Unknown] Allergy/AdvReac Type Severity Reaction Status Date / Time No Known Allergies Allergy Verified 01/04/23 11:27 Surgical History (Updated 04/05/21 @ 08:[address] Kathi Flor, DO) Previous section Social History (Updated 04/04/21 @ 08:[address] Kathi Flor, ) Smoking Status: Never smoker alcohol intake: never substance use type: does not use ROS ROS ED ROS Narrative Constitutional: Denies fever HEENT: Denies sore throat Neck: Denies neck pain Cardiovascular: Denies chest pain, syncope Respiratory: Denies shortness of breath GI: Endorses abdominal pain, flank pain : Endorses hematuria Musculoskeletal: Denies muscle or joint pain Neurologic: Denies numbness weakness or loss of sensation Skin denies rash EXAM Physical Exam Narrative Exam Narrative: Nursing triage notes reviewed, Vital signs reviewed Constitutional: please see [facility] HENT: MMM Eyes: Pupils equal round and reactive to light, Extraocular muscles intact Neck: No stridor, no JVD, full neck ROM Lungs: Clear to auscultation, No wheezing or rales. No increased work of breathing, no conversational dyspnea, no accessory muscle use, no nasal flaring. No respiratory distress noted Heart: Regular rate and rhythm, No murmurs, No rubs and No gallops, 2+ distal pulses (radial, femoral, posterior tibial) in all extremities Abdomen: Soft, left lower quadrant TTP, but no rigidity, rebound or guarding, no obvious peritoneal signs, no palpable pulsatile abdominal masses, no auscultated abdominal bruit : No CVAT Extremities: No edema Neuro: No focal neurological deficits, cranial nerves II through XII intact, 5/5 strength in all extremities. Intact sensation to light touch in all extremities, 2+ reflexes bilateral patella dens. Normal gait. No ataxia. Skin: No rash or lesions noted Const Vital Signs: 01/04/23 11:24 01/04/23 13:23 01/04/23 14:53 Temperature 97.4 F L Temperature Source Temporal Pulse Rate 123 H 115 H Respiratory Rate 18 18 18 Blood Pressure 178/109 H 157/93 H Blood Pressure Mean 132 114 Pulse Ox 99 95 Oxygen Delivery Method Room Air Room Air [facility] Narrative Medical decision making narrative: Chief Complaint: Left lower quadrant abdominal pain External records reviewed: No recent CT scan of the abdomen pelvis noted in the chart I considered the following differential diagnosis: Nephrolithiasis, pyelonephritis, , intra-abdominal pathology including perforation obstruction Patient was initially hypertensive, tachycardic but afebrile and nontoxic-appearing. I performed a broad lab and imaging work-up to further elucidate etiology patient complaints. Patient's labs images remarkable for evidence of systemic inflammation, CT scan remarkable for nephrolithiasis with hydronephrosis. Urine with inflammation but no obvious UTI and hematuria likely secondary to renal stone. Given the patient's duration of symptoms of 2 weeks it is unlikely is got a pass on its own. Given this I did consult urology Dr. Freeman who recommended outpatient follow-up for surgical intervention. Recommended against acute surgery at this point time. Patient's vitals were repeated and her heart rate was still elevated but she was afebrile she is more comfortable after anti-inflammatories and narcotic pain medicine. I did discuss the risk and benefits of further ED evaluation, hospitalization, lactate blood cultures further labs. Patient was alert and orient x3 no capacity to make her medical decisions and chose to be discharged home with oral pain medicine, nausea medicine prophylactic antibiotics and instructions to return if symptoms change or worsen. Factors affecting care: History of Social determinants of health: Former smoker History obtained from others: Shared decision making: I will have a discussion with the patient and or visitors regarding risk/benefits of further testing or admission. They will be made aware of of the risk/benefits inherent in this decision they will be given the opportunity to voice understanding. Consults: Urology Lab Data Attestation: I reviewed the patient's lab results. Lab results narrative: CBC with leukocytosis suggestive of systemic inflammation, no thrombocytopenia BMP with mild renal insufficiency, no anion gap to suggest endorgan hypoperfusion, no significant electrolyte abnormalities, no evidence of hepatobiliary obstruction. UA without evidence of infection to suggest pyelonephritis or UTI, hematuria noted Urine test is negative Labs: Laboratory Results - last 24 hr 01/04/23 01/04/23 01/04/23 12:24 12:24 12:37 WBC 14.2 H RBC 5.46 H Hgb 15.7 H Hct 48.5 H MCV 88.8 MCH 28.8 MCHC 32.4 RDW Std Deviation 43.9 RDW Coeff of Pk 13.7 Plt Count 348 MPV 11.0 Immature Gran % (Auto) 0.500 Neut % (Auto) 71.8 H Lymph % (Auto) 19.0 [place] % (Auto) 7.2 Eos % (Auto) 0.8 Baso % (Auto) 0.7 Absolute Neuts (auto) 10.2 H Absolute Lymphs (auto) 2.71 Nucleated RBC % 0 Sodium 138 Potassium 3.9 Chloride 104 Carbon Dioxide 26.0 Anion Gap 8 BUN 21 H Creatinine 1.27 H Estim Creat Clear Calc 48.43 Est GFR (MDRD) Af Amer 63 Est GFR (MDRD) Non-Af 52 L BUN/Creatinine Ratio 16.5 Glucose 101 Calcium 9.4 Total Bilirubin 0.30 AST 13 L ALT 29 Alkaline Phosphatase 114 Total Protein 8.5 H Albumin 4.0 Globulin 4.5 H Albumin/Globulin Ratio 0.9 Lipase 95 Urine Color Tamara Urine Clarity Sl. Cloudy Urine pH 6.0 Ur Specific [place] 1.010 Urine Protein 30 H Urine Glucose (UA) Normal Urine Ketones Negative Urine Occult Blood 250 H Urine Nitrite Negative Urine Bilirubin Negative Urine Urobilinogen Normal Ur Leukocyte Esterase 25 H Urine RBC > 100 SEEN Urine WBC 0 SEEN Ur Squamous Epith Cells 0 SEEN Urine Bacteria 0 SEEN Urine Mucus 0 SEEN Urine Test Negative Radiography Diagnostic Testing: Clinical Impression(s) from Imaging Studies Abdomen/Pelvis CT 01/04/23 12:13 IMPRESSION: 7.1 mm obstructive calculus in the distal portion of the left ureter causing left hydronephrosis and left hydroureter. Small nonobstructive bilateral intrarenal calculi. Electronically Signed: Cedric Lucio MD at 13:31 EDT , Management Discussion w/another healthcare provider: Mental Retardation Aide (Urology) Discharge Plan Triage Chief Complaint: Complaint ED Provider: Reymundo Velazquez Dx/Rx/DC Orders Clinical Impression: Nephrolithiasis, Hydronephrosis Instructions: ED Kidney Stone Undescended No ... Prescriptions: New oxycodone 5 mg capsule 5 mg PO Q6H 5 Days Qty: 20 0RF tamsulosin 0.4 mg capsule 0.4 mg PO DAILY Qty: 5 0RF cephalexin 500 mg capsule 500 mg PO Q12 5 Days Qty: 10 0RF ondansetron 4 mg tablet,disintegrating 4 mg PO Q8H PRN PRN (Reason: Nausea) Qty: 20 0RF No Action zxsijzkx-hfo-My-FA 1 mg Tablet PO calcium phos,dibas-vitamin D3 77-400 mg-unit Tablet PO MDD supplement ibuprofen 600 mg Tablet 600 mg PO Q8H PRN PRN (Reason: pain) Qty: 30 0RF oxycodone 5 mg Tablet 5 mg PO Q4H PRN PRN (Reason: Pain Score 4-10) 3 Days Qty: 10 0RF Primary Care Provider: John Sweet Referrals: Jovan Freeman MD [Med Staff - Active Staff] - (Call tomorrow for 1st available appointment. ) Activity Restrictions/Additional Instructions: Please take Tylenol, ibuprofen every 6 hours as needed for pain. If this does not control your pain please take oxycodone. Please take Zofran as needed for nausea and vomiting. Please take Flomax to improve passage of stone. Please return if you develop any vomiting, fever, weakness, if you lose consciousness. Please return if he cannot tolerate medicines by mouth. Please call urology at the number that has been provided tomorrow to schedule nearest appointment for potential operative intervention. Disposition Disposition: Home, Self Care
--- NOTE | 2023-01-04 12:13 | CT_ITS ---
STUDY: CT ABDOMEN AND PELVIS WITHOUT CONTRAST REASON FOR EXAM: Female, 32 years old. LLQ abdominal pain. Hematuria. RADIATION DOSAGE (If Supplied By Facility): CTDIvol = ( 22.75 ) mGy, DLP = ( 1091.10 ) mGycm TECHNIQUE: Transaxial images were obtained from the dome of the diaphragm to the symphysis pubis without oral contrast, and without intravenous contrast. Sagittal and coronal images were reconstructed. Individualized dose optimization techniques were used for this CT. COMPARISON: None. FINDINGS: The visualized lung bases are unremarkable. The visualized portions of the heart are within normal limits. Normal liver. Normal gallbladder and extrahepatic biliary system. Normal spleen. Normal pancreas. Normal bilateral adrenal glands. 3 mm nonobstructive calculus in the posterior lower pole calyx. There is also evidence of a 4.7 mm nonobstructive calculus in the lower pole calyx of the right kidney. Mild degree of left hydronephrosis and left hydroureter due to a 7.1 mm calculus in the distal portion of the left ureter. Nonobstructive 2 mm calculus in the lower posterior pole calyx of the left kidney. There is a small hiatal hernia. Normal small intestine. There are scattered colonic diverticula consistent with diverticulosis. The appendix is visualized and appears normal. Normal abdominal aorta. Normal inferior vena cava. Normal retroperitoneum. Small lymph nodes are seen within the mesenteric fat in the right lower quadrant suggesting mesenteric adenitis. Normal urinary bladder. Normal abdominal wall. Normal osseous structures. CT/Abdomen/Pelvis without Cont IMPRESSION: 7.1 mm obstructive calculus in the distal portion of the left ureter causing left hydronephrosis and left hydroureter. Small nonobstructive bilateral intrarenal calculi. Electronically Signed: Cedric Lucio MD at 13:31 EDT ,
[2023-01-04 12:35] LABS: Absolute Lymphocyte Count 2.71 X10^3/uL (0.83-4.51); Absolute Neutrophil Count 10.2 X10^3/uL (2.0-7.7); Basophil% 0.7 % (0-1); Eosinophil# 0.11 X10^3/uL; Eosinophils% 0.8 % (0-5); Hematocrit 48.5 % (37-47); Hemoglobin 15.7 g/dL (12.0-15.0); Lymphocyte # 2.71 X10^3/ul (0.83-4.51); Mean Corp Hgb Conc 32.4 g/dL (32-36); Mean Corpuscular Hgb 28.8 pg (27.0-32.0); Mean Corpuscular Volume 88.8 fL (81-99); Monocyte# 1.03 X10^3/uL; Monocyte% 7.2 % (0-10); NRBC Flagged by Analyzer 0 % (0-5); Neutrophil # 10.22 X10^3/uL (2.7-7.7); Neutrophil % 71.8 % (47-70); Platelet Count 348 K/mm3 (150-450); RBC Distribution Width CV 13.7 % (11.6-14.6); RBC Distribution Width SD 43.9 fl (35.1-43.9); Red Blood Count 5.46 M/mm3 (4.2-5.4); White Blood Count 14.2 K/mm3 (4.4-11.0)
[2023-01-04] MEDS: Morphine 4 MG/ML Syringe IV ×2 (12:40→14:56)
[2023-01-04] MEDS: 0.9% Normal Saline 1,000 ML 1000 ML IV ×2 (12:40→15:02)
[2023-01-04] MEDS: Ondansetron 4 MG/2 ML Vial IV (12:41)
[2023-01-04 12:45] LABS: Bacteria 0 SEEN /hpf (None Seen); Mucous, Urine 0 SEEN /hpf (<or=2+); Squamous Epithelial Cells - UA 0 SEEN /hpf (5-10); White Blood Cells 0 SEEN /hpf (0-5)
[2023-01-04 12:49] LABS: Color, Urine Amber (Yellow); Glucose, Dipstick Normal (Normal); Ketone-Dipstick Negative (Negative); Leukocyte Esterase-Dipstick 25 /ul (Negative); Nitrite-Dipstick Negative (Negative); Occult Blood-Urine 250 /ul (Negative); Protein-Dipstick 30 mg/dl (Negative); Urine Bilirubin Dipstick Negative (Negative); Urine Clarity Sl. Cloudy (Clear); Urine Urobilinogen Normal (Normal)
[2023-01-04 12:52] LABS: ALB/GLOB Ratio 0.9 RATIO (0.9-2.4); AST(SGOT) 13 U/L (15-37); Alanine Aminotransfer ALT/SGPT 29 U/L (13-56); Alkaline Phosphatase 114 U/L (45-117); Anion Gap 8 (5-15); BUN 21 mg/dL (7-18); BUN/Creat Ratio 16.5 RATIO (10-20); Calcium,Total 9.4 mg/dL (8.5-10.1); Chloride 104 mmol/L (98-107); Creatinine, Serum 1.27 mg/dL (0.55-1.02); EST Glomerular Filtration Rate 52 mL/min (>60); Est Glom Filt Rate - Afr Amer 63 mL/min (>60); Estimated Creatinine Clearance 48.43 ml/min; Globulin 4.5 g/dL (2.2-4.2); Glucose 101 mg/dL (74-106); Lipase 95 U/L (73-393); Potassium 3.9 mmol/L (3.5-5.1); Protein, Total 8.5 g/dL (6.4-8.2); Sodium Level 138 mmol/L (136-145)
[2023-01-04 12:56] LABS: Red Blood Cells-Urine > 100 SEEN /hpf (0-5)
[2023-01-04 12:57] LABS: Internal QC Validated? YES +Cl - CLEAR BKGD; Pregnancy, Urine Negative Negative
[2023-01-04 13:23] VITALS: RESP 18
[2023-01-04 14:53] VITALS: BP 157/93; PULSE 115; RESP 18; O2SAT 95
[2023-01-04] MEDS: Ketorolac 15 MG/ML Vial IV (14:57)
[2023-01-04 15:25] VITALS: BP 151/83; PULSE 99; RESP 16; O2SAT 95
[2023-01-04 15:36] VITALS: BP 128/79; PULSE 96; RESP 18; O2SAT 96
== END 2023-01-04 15:38 | disposition home or self-care (01) ==
PROVIDERS: Emergency Provider Emergency Medicine; PCP Family Medicine; Visit Provider Emergency Medicine
DX: N13.2 Hydronephrosis with renal and ureteral calculous obstruction (principal); Z79.1 Long term (current) use of non-steroidal anti-inflammatories (NSAID)
CPT/HCPCS: 74176; 80053; 81001; 81025; 83690; 85025; 96361; 96374; 96375; 96376; 99283; J7030; A4216; J2405

== ENCOUNTER → 2025-05-19 | Outpatient (CLI) | payer OTHER, SELFPAY ==
[2025-05-24 23:07] LABS: Egg, Whole 0.14 kU/L (Class 0/I); Mussels <0.10 kU/L (Class 0)
== END | disposition home or self-care (01) ==
LOC: LAB 15:01
PROVIDERS: PCP Physician Assistant Medical; Referring Provider Student in an Organized Health Care Education/Training Program; Visit Provider Student in an Organized Health Care Education/Training Program
DX: R19.5 Other fecal abnormalities (principal)
CPT/HCPCS: 36415; 86003; 86005

== ENCOUNTER 2025-06-23 11:56 | Day surgery (SDC) | payer OTHER, SELFPAY ==
--- NOTE | 2025-06-18 16:34 | PAT.ANE_ITS ---
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 When Was Last Pacemaker Check QUESTION #4 FULL TEXT: You/Your Family Experience fever (hyperthermia) with Anesthesia Last Oral Intake Last Oral intake: Last Oral Intake NPO since Meds taken in AM with sips of water? Meds patient instructed to take am of surgery PONV PONV - mobile equipment servicer: PONV - mobile equipment servicer Female Yes 06/18/25 14:45 HX of Motion Sickness No 06/18/25 14:45 HX of N/V After Surgery Yes 06/18/25 14:45 Non-Smoker Yes 06/18/25 14:45 Duration of Surgery greater No 06/18/25 14:45 than 60 minutes Number of Risk Factors 3 06/18/25 14:45 PONV Score Moderate Risk 06/18/25 14:45 Height & Weight Height & Weight: Anesthesia: Height & Weight Height 5 ft 1 in 01/04/23 11:24 Respiratory Assessment Respiratory Assessment - mobile equipment servicer: Respiratory Tract Infection Hx - mobile equipment servicer Hx Respiratory Tract Infection No 06/18/25 14:45 STOP Sleep Apnea STOP Sleep Apnea - mobile equipment servicer: STOP Sleep Apnea - mobile equipment servicer Hx Hypertension Yes: CONTROLLED ON MED 06/18/25 14:45 Hx Sleep Apnea No 06/18/25 14:45 CPAP BIPAP Do you snore loudly (louder No 06/18/25 14:45 than talking or can be heard Do you often feel tired/ No 06/18/25 14:45 fatigued/ sleepy during daytime? Has anyone observed you stop No 06/18/25 14:45 breathing during sleep? STOP Results Negative 06/18/25 14:45 QUESTION #5 FULL TEXT : Do you snore loudly (louder than talking or can be heard through closed doors)? 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 Specify any problems Hx of Preganancy in last 3 No 06/18/25 14:45 Months Nurse Filling Out Transfusion VCHRISTIN 06/18/25 14:45 & Questions: Date: 06/18/25 06/18/25 14:45 Time: 14:47 06/18/25 14:45 Patient unable to answer at this time (ie. confused, unrespo /Reproduction History /Reproductive History - mobile equipment servicer: /Reproductive Hx- mobile equipment servicer Hx Now No 06/18/25 14:45 Gestational Age (in weeks): EDC: Hx Hx Para Hx Section SAB No 06/18/25 14:45 PFSH Medical History (Updated 06/18/25 @ 14:45 by Lo Quinones) Fatty liver Pulmonary embolism Former smoker Shortness of breath on exertion History of Holter monitoring Hx of tilt table evaluation History of echocardiogram Cardiology follow-up encounter Depression Anxiety Obesity Home Medications ?Medication ?Instructions ?Recorded ?Last Taken ?Type ibuprofen 600 mg tablet 600 mg PO Q8H PRN PRN pain # 30 tabs 04/06/21 Unknown Rx metoprolol succinate 25 mg 25 mg PO QDAY 05/19/25 Unkn own History tablet,extended release 24 hr albuterol sulfate 90 mcg/actuation 2 puff inhalation Q 6H PRN PRN 06/18/25 Unknown History aerosol inhaler wheezing multivitamin (Daily Multi-Vitamin 1 tab PO DAILY 06/18 Unknown History tablet) Allergy/AdvReac Type Severity Reaction Status Date / Time No Known Allergies Allergy Verified 06/18/25 14:32 Surgical History (Updated 06/18/25 @ 14:45 by Lo Quinones) Hx of tubal ligation History of cystoscopy Previous section Social History (Updated 04/04/21 @ 08:[address] Kathi Flor, DO) Smoking Status: Former smoker alcohol intake: never substance use type: does not use Audit: Pertinent Findings Pertinent Findings EKG Perinent findings: 05/06/2025. Normal sinus rhythm. Echo (EF%) pertinent findings: 05/20/2024. EF is 60 to 65%. No aortic stenosis noted. RVSP is 38.8 mmHg. Consult pertinent findings: 05/06/2025. Claudio HUMAN RESOURCES RECORDS CLERK-C. 1. Patient has symptoms associate with autonomic dysfunction. Her cardiac testing was unremarkable. She will be referred to the [facility] autonomic dysfunction clinic. Conservative treatment with increased fluids and compression stockings. Additional pertinent findings: Tilt table test. July 31, 2024?normal Holter monitor. 05/20/2024. Predominant rhythm is sinus. SVE burden is less than 1%. The reported symptoms were associated with sinus tachycardia and normal sinus rhythm. Recommendation Anesthesia Recommendation Anesthesia recommendation: F/U recommended (Did patient go to the [facility] autonomic dysfunction clinic as was requested of her? Can we get those results?)
--- NOTE | 2025-06-19 14:50 | PAT.ANESEVAL ---
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 When Was Last Pacemaker Check QUESTION #4 FULL TEXT: You/Your Family Experience fever (hyperthermia) with Anesthesia Last Oral Intake Last Oral intake: Last Oral Intake NPO since Meds taken in AM with sips of water? 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 Female Yes 06/18/25 14:45 HX of Motion Sickness No 06/18/25 14:45 HX of N/V After Surgery Yes 06/18/25 14:45 Non-Smoker Yes 06/18/25 14:45 Duration of Surgery greater No 06/18/25 14:45 than 60 minutes Number of Risk Factors 3 06/18/25 14:45 PONV Score Moderate Risk 06/18/25 14:45 Height & Weight Height & Weight: Anesthesia: Height & Weight Height 5 ft 1 in 01/04/23 11:24 Respiratory Assessment Respiratory Assessment - business communications instructor: Respiratory Tract Infection Hx - business communications instructor Hx Respiratory Tract Infection No 06/18/25 14:45 STOP Sleep Apnea STOP Sleep Apnea - business communications instructor: STOP Sleep Apnea - business communications instructor Hx Hypertension Yes: CONTROLLED ON MED 06/18/25 14:45 Hx Sleep Apnea No 06/18/25 14:45 CPAP BIPAP Do you snore loudly (louder No 06/18/25 14:45 than talking or can be heard Do you often feel tired/ No 06/18/25 14:45 fatigued/ sleepy during daytime? Has anyone observed you stop No 06/18/25 14:45 breathing during sleep? STOP Results Negative 06/18/25 14:45 QUESTION #5 FULL TEXT : Do you snore loudly (louder than talking or can be heard through closed doors)? 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 Specify any problems Hx of Preganancy in last 3 No 06/18/25 14:45 Months Nurse Filling Out Transfusion VCHRISTIN 06/18/25 14:45 & Questions: Date: 06/18/25 06/18/25 14:45 Time: 14:47 06/18/25 14:45 Patient unable to answer at this time (ie. confused, unrespo /Reproduction History /Reproductive History - business communications instructor: /Reproductive Hx- business communications instructor Hx Now No 06/18/25 14:45 Gestational Age (in weeks): EDC: Hx Hx Para Hx Section SAB No 06/18/25 14:45 PFSH Medical History (Updated 06/18/25 @ 14:45 by Lo Quinones) Fatty liver Pulmonary embolism Former smoker Shortness of breath on exertion History of Holter monitoring Hx of tilt table evaluation History of echocardiogram Cardiology follow-up encounter Depression Anxiety Obesity Home Medications ?Medication ?Instructions ?Recorded ?Last Taken ?Type ibuprofen 600 mg tablet 600 mg PO Q8H PRN PRN pain #30 tabs 04/06/21 Unknown Rx metoprolol succinate 25 mg 25 mg PO QDAY 05/19/25 Unknown History tablet,extended release 24 hr albuterol sulfate 90 mcg/actuation 2 puff inhalation Q6H PRN PRN 06/18/25 Unknown History aerosol inhaler wheezing multivitamin (Daily Multi-Vitamin 1 tab PO DAILY 06/18/25 Unknown History tablet) Allergy/AdvReac Type Severity Reaction Status Date / Time No Known Allergies Allergy Verified 06/18/25 14:32 Surgical History (Updated 06/18/25 @ 14:45 by Lo Quinones) Hx of tubal ligation History of cystoscopy Previous section Social History (Updated 04/04/21 @ 08:[address] Kathi Flor, DO) Smoking Status: Former smoker alcohol intake: never substance use type: does not use Audit: Pertinent Findings HISTORY of Pertinent Findings History of Pertinent Findings: EKG Pertinent Findings EKG Perinent findings 05/06/2025. Normal sinus 06/18/25 16:40 rhythm. Echo Pertinent Findings Echo (EF%) pertinent findings 05/20/2024. EF is 60 to 65%. 06/18/25 16:40 No aortic stenosis noted. RVSP is 38.8 mmHg. Consult Pertinent Findings Consult pertinent findings 05/06/2025. González GUTIERREZP-C. 06/18/25 16:55 1. Patient has symptoms associate with autonomic dysfunction. Her cardiac testing was unremarkable. She will be referred to the [facility] autonomic dysfunction clinic. Conservative treatment with increased fluids and compression stockings. Additional Pertinent Findings Additional pertinent findings Tilt table test. July 31 06/18/25 16:53 , 2023?normal Holter monitor. 05/20/2024. Predominant rhythm is sinus. SVE burden is less than 1% . The reported symptoms were associated with sinus tachycardia and normal sinus rhythm. Recommendation Anesthesia Recommendation Anesthesia recommendation: OPTIMIZED for anesthesia (Patient has an appointment with the autonomic dysfunction clinic at [facility] in July. Patient is otherwise cleared for anesthesia.)
[2025-06-23] VITALS (7 sets, daily range): BP systolic 112–147; BP diastolic 62–88; PULSE 92–119; RESP 18–20; TEMP 36.6–37.7; O2SAT 98–100; BMI 45.6
--- NOTE | 2025-06-23 | EGD_PTH ---
PATIENT: OLEG BOLES LOC: EN U#:[id number] AGE/SX: 34/F ROOM: RE06/23/[address]: Dr. Jenaro Gil DO : 1990 BED: DIS: 06/23/2025 SPEC #: [id number] RECD: 06/23/25 14:56 STATUS: BOSSMAN REQ #: [id number] CHANCE: 06/23/25 00:[address]: Jenaro Gil DEPT: SURGICAL PATHOLOGY RECD BY: Quirino Pope ENTERED: 06/24/25 08:17 SP TYPE: EGD BIOPSY OT DR: LOURDES Parisi Tissues: A - Pancreatic duct, NOS B - Duodenum, NOS C - Esophagus, NOS Procedures: Surgery Specimen Level IV HEADER OPERATION: EGD, biopsy PRE-OP DIAGNOSIS: Dysphagia, epigastric abdominal pain TISSUE SUBMITTED: A- Pancreatic rest biopsy, B- Duodenum biopsy, C- Random esophagus biopsy MICROSCOPIC DIAGNOSIS A. Soft tissue site not specified, pancreatic rest, biopsy: - Gastric mucosa with chronic inflammation and features of reactive gastropathy. - Negative for Helicobacter-like organisms (H&E). - No pancreatic tissue observed in these sections. B. Duodenum, biopsy: - Normal villous architecture with mild Intraepithelial lymphocytosis - see note. - Sebasitan gland hyperplasia. Note: This pattern of injury is etiologically nonspecific?and the differential diagnosis includes sensitivity to gluten and non-gluten proteins, small intestinal bacterial overgrowth, stasis related changes, infection, protein calorie malnutrition, tropical sprue, and medication injury (NSAIDs, Olmesartan / Benicar, Mycophenolic acid, Idelalisib, for example). If celiac disease is a clinical concern, additional clinical studies, such as tTG-IgA, are recommended. C. Esophagus, random, biopsy: - Squamous mucosa negative for eosinophils. MICROSCOPIC DESCRIPTION Slides are reviewed. GROSS DESCRIPTION A. Received in fixative is one container labeled with the patient's name and designated Pancreatic rest biopsy. The specimen consists of one irregular fragment of light santizo soft tissue that measures 0.6 cm. The specimen is totally submitted in one cassette. B. Received in fixative is one container labeled with the patient's name and designated Duodenum biopsy. The specimen consists of two irregular fragments of light santizo soft tissue that measure 0.4 and 0.5 cm. The specimen is totally submitted in one cassette. C. Received in fixative is one container labeled with the patient's name and designated Random esophagus biopsy. The specimen consists of two irregular fragments of light santizo soft tissue, each measuring 0.5 cm. The specimen is totally submitted in one cassette. CO 06/23/2025 CPT:93336h1
--- NOTE | 2025-06-23 12:25 | PCM.HP.STD ---
[facility] - General General Date of Admission: 06/23/25 Date of Service: 07/23/25 Chief Complaint: abdominal pain , bloating and globus sensation [facility] Narrative ELIDA BOLES, is a 34 F who presents Chief Complaint: globus sensation Patient here today for issues with globus sensation, heartburn, epigastric pain and loose stool. Patient was prescribed omeprazole from her primary care provider which made her epigastric pain worse. She was switched to Pepcid which did help. She just takes it as needed now. She denies difficulty with swallowing. She she feels like there is always something in her esophagus. She endorses feeling like a smell is coming from her esophagus. She has loose stools over the past year. She denies medication or lifestyle changes when this started. She has a few loose bowel movements per day. Prior to this her stools were always formed. She has never had an EGD or colonoscopy. She is working with rheumatology for possible diagnosis of Fredy's thyroiditis. Celiac testing done by healthcare consultant was negative. [facility] Medical History Fatty liver Pulmonary embolism Former smoker Shortness of breath on exertion History of Holter monitoring Hx of tilt table evaluation History of echocardiogram Cardiology follow-up encounter Depression Anxiety Obesity Home Medications ?Medication ?Instructions ?Recorded ?Last Taken ?Type ibuprofen 600 mg tablet 600 mg PO Q8H PRN PRN pain #30 tabs 04/06/21 Unknown Rx metoprolol succinate 25 mg 25 mg PO QDAY 05/19/25 06/22/25 22:00 History tablet,extended release 24 hr albuterol sulfate 90 mcg/actuation 2 puff inhalation Q6H PRN PRN 06/18/25 Unknown History aerosol inhaler wheezing multivitamin (Daily Multi-Vitamin 1 tab PO DAILY 06/18/25 Unknown History tablet) Allergy/AdvReac Type Severity Reaction Status Date / Time No Known Allergies Allergy Verified 06/23/25 12:23 Surgical History Hx of tubal ligation History of cystoscopy Previous section Social History Smoking Status: Former smoker alcohol intake: never substance use type: does not use ROS Constitutional Constitutional: Denies fatigue, fever(s), poor appetite, weight gain or weight loss Gastrointestinal Gastrointestinal: Denies belching, bloating, change in bowel habits, change in stool character, chewing difficulty, coffee ground emesis, constipation, cramping, diarrhea, dyspepsia, dysphagia, early satiety, excessive flatus, fecal incontinence, heartburn, hematemesis, hematochezia, hemorrhoids, loose stools, melena, nausea, odynophagia, rectal bleeding, tenesmus, vomiting or weight changes Physical Exam Const alert, oriented x3, no apparent distress and healthy appearing General Appearance: cooperative GI normal to inspection, nondistended, normoactive bowel sounds, soft to palpation, non-tender and non-distended Percussion: normal to percussion Rectal Exam: deferred Assessment & Plan Assessment/Plan (1) Dysphagia: (2) Epigastric abdominal pain: PLAN: Assessment and Plan Assessment and Plan (1) Dysphagia: (2) Loose stools: Status: Acute Plan: Elida is a 33-year-old female patient here today for evaluation of loose stool, globus sensation, and epigastric pain. Patient's symptoms started about a year ago. She has constant feeling like there is something in her esophagus as well as concern of a smell coming up into her mouth. She denies issues with swallowing. Epigastric pain is worse on an empty stomach. Prior to 1 year ago patient had regular formed bowel movements however now she has multiple softer bowel movements per day. Patient currently working with rheumatology with possible diagnosis of Fredy's. I have ordered stool testing to rule out infection or inflammation in her colon. She will also undergo upper endoscopy to assess her upper GI tract for inflammatory processes such as EOE. I have also ordered food allergy testing. Celiac panel was negative. She will follow-up after testing. - EGD - Stool testing - Allergy panel - Follow-up after endoscopy (3) Epigastric abdominal pain: Status: Acute Orders: Orders Allergen, Food Profile 14 Today R19.5 - Other fecal abnormalities ENTERIC PATHOGEN PANEL STOOL Today K58.9 - Irritable bowel syndrome, unspecified, R19.5 - Other fecal abnormalities Giardia Lamblia, Stool EIA Today R19.5 - Other fecal abnormalities Ova and Parasites 8623 Today K58.9 - Irritable bowel syndrome, unspecified, R19.5 - Other fecal abnormalities Stool Lactoferrin/WBC Today K58.9 - Irritable bowel syndrome, unspecified, R19.5 - Other fecal abnormalities Calprotectin, Stool Today R19.5 - Other fecal abnormalities CDIFF (PCR) Today R19.5 - Other fecal abnormalities Medications: Discontinued oxycodone Discontinued Reason: Pt no longer taking 5 mg PO Q4H PRN 3 days PRN 10 tabs 0RF Pain Score 4-10 Z98.891 - History of uterine scar from previous surgery cephalexin Discontinued Reason: Pt no longer taking 500 mg PO Q12 5 days 10 CAPSULES 0RF ondansetron Discontinued Reason: Pt no longer taking 4 mg PO Q8H PRN PRN 20 tabs 0RF Nausea oxycodone Discontinued Reason: Pt no longer taking 5 mg PO Q6H 5 days 20 caps 0RF N20.0 - Calculus of kidney tamsulosin Discontinued Reason: Pt no longer taking 0.4 mg PO DAILY 5 CAPSULES 0RF
[2025-06-23] MEDS: Lactated Ringers 1,000 ML 15 ML IV (12:26)
--- NOTE | 2025-06-23 12:36 | PCM.PRE.AN2 ---
ASA Classification* ASA Classification ASA Classification: 3 Assessment & Plan Anesthesia* Anesthesia Assessment Anesthesia Assessment: Discussed sedation and/or anesthesia options, risks, benefits, and alternatives with patient/parents/legal guardian/POA. Questions invited. The patient/parents/legal guardian/POA seems to understand and agrees to proceed with anesthesia plan. Reviewed the physical assessment, medical history, allergy history and patient home medications list prior to surgery/procedure/anesthetic and documented any changes. Performed airway and anesthesia risk assessments. Anesthesia Type Anesthesia Type: MAC History Source History Obtained from:: Patient and Chart Anesthesia Focused Assessment* Temperature: 98.6 F Pulse Rate: 102 Blood Pressure: 147/82 Respiratory Rate: 18 Pulse Ox: 99 Oxygen Delivery Method: Room Air Airway Assessment Mouth opens: >3 cm Mallampati Score: III Teeth Condition: Caps/Crowns (Patient has a right lower molar with a crown. It is tight.) Neck Range of motion (ROM): Full ROM Labs Anesthesia Preop lab: CBC WBC 14.2 K/mm3 (4.4-11.0) H 01/04/23 12:24 01/04/23 RBC 5.46 M/mm3 (4.2-5.4) H 01/04/23 12:24 01/04/23 Hgb 15.7 g/dL (12.0-15.0) H 01/04/23 12:24 01/04/23 Hct 48.5 % (37-47) H 01/04/23 12:24 01/04/23 Plt Count 348 K/mm3 (150-450) 01/04/23 12:24 01/04/23 CHEMISTRY Potassium 3.9 mmol/L (3.5-5.1) 01/04/23 12:24 01/04/23 Sodium 138 mmol/L (136-145) 01/04/23 12:24 01/04/23 BUN 21 mg/dL (7-18) H 01/04/23 12:24 01/04/23 Creatinine 1.27 mg/dL (0.55-1.02) H 01/04/23 12:24 01/04/23 Glucose 101 mg/dL (74-106) 01/04/23 12:24 01/04/23 POC Glucose 95 mg/dL (70-110) 11/04/14 08:34 11/04/14 TSH 2.36 uIU/mL (0.358-3.74) 08/24/20 15:15 08/24/20 COAG PT 12.4 SECONDS (11.7-14.9) 01/09/15 20:25 01/09/15 HCG, Quant 5656 mIU/mL (1-3) H 08/13/20 11:20 08/13/20 Urine Test Negative Negative 01/04/23 12:37 01/04/23 Pre-Assessment Diagnosis/Proposed Procedure Planned Operative Procedure(s): EGD Anesthesia History 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 When Was Last Pacemaker Check QUESTION #4 FULL TEXT: You/Your Family Experience fever (hyperthermia) with Anesthesia Last Oral Intake Last Oral intake: Last Oral Intake NPO since 21:00 06/23/25 12:24 Meds taken in AM with sips of No 06/23/25 12:24 water? 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 Female Yes 06/18/25 14:45 HX of Motion Sickness No 06/18/25 14:45 HX of N/V After Surgery Yes 06/18/25 14:45 Non-Smoker Yes 06/18/25 14:45 Duration of Surgery greater No 06/18/25 14:45 than 60 minutes Number of Risk Factors 3 06/18/25 14:45 PONV Score Moderate Risk 06/18/25 14:45 Height & Weight Height & Weight: Anesthesia: Height & Weight Height 5 ft 1 in 06/23/25 12:24 Weight: 109.4 kg 06/23/25 12:24 Body Mass Index (BMI) 45.6 06/23/25 12:24 Respiratory Assessment Respiratory Assessment - film process operator: Respiratory Tract Infection Hx - film process operator Hx Respiratory Tract Infection No 06/18/25 14:45 STOP Sleep Apnea STOP Sleep Apnea - film process operator: STOP Sleep Apnea - film process operator Hx Hypertension Yes: CONTROLLED ON MED 06/18/25 14:45 Hx Sleep Apnea No 06/18/25 14:45 CPAP BIPAP Do you snore loudly (louder No 06/18/25 14:45 than talking or can be heard Do you often feel tired/ No 06/18/25 14:45 fatigued/ sleepy during daytime? Has anyone observed you stop No 06/18/25 14:45 breathing during sleep? STOP Results Negative 06/18/25 14:45 QUESTION #5 FULL TEXT : Do you snore loudly (louder than talking or can be heard through closed doors)? 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 Specify any problems Hx of Preganancy in last 3 No 06/18/25 14:45 Months Nurse Filling Out Transfusion VCHRISTIN 06/18/25 14:45 & Questions: Date: 06/18/25 06/18/25 14:45 Time: 14:47 06/18/25 14:45 Patient unable to answer at this time (ie. confused, unrespo /Reproduction History /Reproductive History - film process operator: /Reproductive Hx- film process operator Hx Now No 06/18/25 14:45 Gestational Age (in weeks): EDC: Hx Hx Para Hx Section SAB No 06/18/25 14:45 Active Medications Active Medications: Current Medications Generic Name Dose Route Start Last Admin Trade Name Freq PRN Reason Stop Dose Admin Lactated Ringer's 1,000 mls @ 15 mls/hr 06/23/25 12:15 06/23/25 12:26 IV 15 mls/hr .Q48H DINORAH Administration PFSH Medical History Fatty liver Pulmonary embolism Former smoker Shortness of breath on exertion History of Holter monitoring Hx of tilt table evaluation History of echocardiogram Cardiology follow-up encounter Depression Anxiety Obesity Home Medications ?Medication ?Instructions ?Recorded ?Last Taken ?Type ibuprofen 600 mg tablet 600 mg PO Q8H PRN PRN pain #30 tabs 04/06/21 Unknown Rx metoprolol succinate 25 mg 25 mg PO QDAY 05/19/25 06/22/25 22:00 History tablet,extended release 24 hr albuterol sulfate 90 mcg/actuation 2 puff inhalation Q6H PRN PRN 06/18/25 Unknown History aerosol inhaler wheezing multivitamin (Daily Multi-Vitamin 1 tab PO DAILY 06/18/25 Unknown History tablet) Allergy/AdvReac Type Severity Reaction Status Date / Time No Known Allergies Allergy Verified 06/23/25 12:23 Surgical History Hx of tubal ligation History of cystoscopy Previous section Social History Smoking Status: Former smoker alcohol intake: never substance use type: does not use Review of Systems (Anesthesia) ROS Narrative System reviewed and no additional complaints, except as documented.
--- NOTE | 2025-06-23 13:40 | PCM.POST.ANE ---
Anesthesia: Postop Eval I Current Vital Signs Temperature: 97.8 F Pulse Rate: 119 Blood Pressure: 124/85 Respiratory Rate: 20 Pulse Ox: 98 Assessment Airway patent: Yes Spontaneous unlabored respirations: Yes nausea: No Vomiting: No Anesthesia Complication: No Fluid Hydration Crystalloid volume administer (ml): 300 Total IV fluid infused: 300 Progress Note Anesthesia document: Postop Eval 1 completed: Yes
--- NOTE | 2025-06-23 13:48 | OP.EGD_ITS ---
Patient Name: Elida Caban Procedure Date: 06/23/2025 1:18 PM Date of : 1990 Age: 34 Procedure: Upper GI endoscopy Indications: Epigastric abdominal pain, Indigestion, Suspected esophageal reflux Providers: Jenaro Gil DO Referring MD: Phuc Parisi Medicines: Monitored Anesthesia Care Patient Profile: This is a 34 year old female. Refer to note in patient chart for documentation of history and physical. Patient has symptoms of acute abdominal cramping, chronic abdominal distention, chronic epigastric abdominal pain, chronic dyspepsia and chronic nausea. Complications: No immediate complications. Procedure: Pre-Anesthesia Assessment: - Prior to the procedure, a History and Physical was performed, and patient medications and allergies were reviewed. The patient is competent. The risks and benefits of the procedure and the sedation options and risks were discussed with the patient. All questions were answered and informed consent was obtained. Patient identification and proposed procedure were verified by the physician in the pre-procedure area. Mental Status Examination: alert and oriented. Airway Examination: normal oropharyngeal airway and neck mobility. Respiratory Examination: clear to auscultation. CV Examination: normal. Prophylactic Antibiotics: The patient does not require prophylactic antibiotics. Prior Anticoagulants: The patient has taken no anticoagulant or antiplatelet agents except for NSAID medication. ASA Grade Assessment: II - A patient with mild systemic disease. After reviewing the risks and benefits, the patient was deemed in satisfactory condition to undergo the procedure. The anesthesia plan was to use monitored anesthesia care (MAC). Immediately prior to administration of medications, the patient was re-assessed for adequacy to receive sedatives. The heart rate, respiratory rate, oxygen saturations, blood pressure, adequacy of pulmonary ventilation, and response to care were monitored throughout the procedure. The physical status of the patient was re-assessed after the procedure. After obtaining informed consent, the endoscope was passed under direct vision. Throughout the procedure, the patient's blood pressure, pulse, and oxygen saturations were monitored continuously. The Endoscope was introduced through the mouth, and advanced to the third part of the duodenum. Small bowel enteroscopy was deemed necessary. The upper GI endoscopy was accomplished without difficulty. The patient tolerated the procedure well. Scope In: 1:25:39 PM Scope Out: 1:32:04 PM Total Procedure Duration Time 0 hours 6 minutes 25 seconds Findings: The examined esophagus was normal. Biopsies were obtained from the proximal and distal esophagus with cold forceps for histology of suspected eosinophilic esophagitis. One linear gastric ulcer with no stigmata of bleeding was found in the gastric antrum. The lesion was 5 mm in largest dimension. Biopsies were taken with a cold forceps for histology. Verification of patient identification for the specimen was done. Estimated blood loss was minimal. Biopsies were taken with a cold forceps for Helicobacter pylori testing. Patchy mildly erythematous mucosa without active bleeding and with no stigmata of bleeding was found in the entire duodenum. Biopsies were taken with a cold forceps for histology. Verification of patient identification for the specimen was done. Estimated blood loss was minimal. Impression: - Normal esophagus. - Gastric ulcer with no stigmata of bleeding. Biopsied. - Erythematous duodenopathy. Biopsied. - Biopsies were taken with a cold forceps for evaluation of eosinophilic esophagitis. Recommendation: - Discharge patient to home. - Resume previous diet. - Continue present medications. - Await pathology results. - Protonix 40mg twice daily Procedure Code(s): --- Professional --- 31888, Small intestinal endoscopy, enteroscopy beyond second portion of duodenum, not including ileum; with biopsy, single or multiple CPT copyright 2021 [employer]. All rights reserved. The codes documented in this report are preliminary and upon s3b multi sensor operator review may be revised to meet current compliance requirements. Jenaro Gil DO 06/23/2025 1:48:01 PM This report has been signed electronically. Number of Addenda: 0 Note Initiated On: 06/23/2025 1:18 PM
--- NOTE | 2025-06-23 13:48 | OP.PROVAT_ITS ---
06/23/2025 Phuc Parisi Re : Upper GI endoscopy procedure for Elida Caban Dear Michael This procedure was performed on Monday, June 23, 2025. My impressions and recommendations are as follows: Impressions : - Normal esophagus. - Gastric ulcer with no stigmata of bleeding. Biopsied. - Erythematous duodenopathy. Biopsied. - Biopsies were taken with a cold forceps for evaluation of eosinophilic esophagitis. Recommendations : - Discharge patient to home. - Resume previous diet. - Continue present medications. - Await pathology results. - Protonix 40mg twice daily My findings are described in the full procedure note, which is enclosed. If I can be of further assistance, please feel free to contact me at . Sincerely, Jenaro Gil, 06/23/2025 1:48:01 PM This report has been signed electronically.
--- NOTE | 2025-06-23 18:52 | POSTOPAN2_ITS ---
Anesthesia Postop Eval I Sum Postop Eval Completion status Anesthesia document: Postop Eval 1 completed: Yes Anesthesia Postop Eval I Summary Anesthesia Postop Eval I Summary: Anesthesia Postop Eval I: Assessment Summary Airway patent Yes 06/23/25 13:[address] [email or web address] Spontaneous unlabored Yes 06/23/25 13:[address] [email or web address].CSIR respirations Mental status nausea No 06/23/25 13:[address] CRIER.CSIR Vomiting No 06/23/25 13:[address] CRIER.CSIR Anesthesia Postop Eval I: Fluid Summary Crystalloid volume administer 300 06/23/25 13:[address] CRIER.CSIR (ml) Colloids volume administered ( ml) Blood Product volume administered (ml) Total IV fluid infused 300 06/23/25 13:[address] CRIER.CSIR Anesthesia Postop Eval I: Summary Notes Anesthesia Complication No 06/23/25 13:[address] CRIER.CSIR Anesthesia Complication Comment: Post-operative progress note Anesthesia: Postop Eval II Evaluation Mental status: Awake and Calm Pain Level: 0 nausea: No Vomiting: No Complications Anesthesia Complication: No
--- NOTE | 2025-06-23 18:52 | PCM.POSTANE2 ---
Anesthesia Postop Eval I Sum Postop Eval Completion status Anesthesia document: Postop Eval 1 completed: Yes Anesthesia Postop Eval I Summary Anesthesia Postop Eval I Summary: Anesthesia Postop Eval I: Assessment Summary Airway patent Yes 06/23/25 13:40 DIABETES [email or web address] Spontaneous unlabored Yes 06/23/25 13:40 DIABETES EDUCATOR.CSIR respirations Mental status nausea No 06/23/25 13:40 DIABETES EDUCATOR.CSIR Vomiting No 06/23/25 13:40 DIABETES EDUCATOR.CSIR Anesthesia Postop Eval I: Fluid Summary Crystalloid volume administer 300 06/23/25 13:40 DIABETES EDUCATOR.CSIR (ml) Colloids volume administered ( ml) Blood Product volume administered (ml) Total IV fluid infused 300 06/23/25 13:40 DIABETES EDUCATOR.CSIR Anesthesia Postop Eval I: Summary Notes Anesthesia Complication No 06/23/25 13:40 DIABETES EDUCATOR.CSIR Anesthesia Complication Comment: Post-operative progress note Anesthesia: Postop Eval II Evaluation Mental status: Awake and Calm Pain Level: 0 nausea: No Vomiting: No Complications Anesthesia Complication: No
== END 2025-06-23 14:20 | disposition home or self-care (01) ==
LOC: EN 11:57 → AC 11:58
PROVIDERS: PCP Physician Assistant Medical; Referring Provider Physician Assistant Medical; Visit Provider Internal Medicine Gastroenterology
PROC: 0DJ08ZZ Inspection of Upper Intestinal Tract, Via Natural or Artificial Opening Endoscopic (ICD-10-PCS; CPT 43235; principal; 2025-06-23 12:55)
DX: K29.50 Unspecified chronic gastritis without bleeding (principal); K25.9 Gastric ulcer, unspecified as acute or chronic, without hemorrhage or perforation; Z87.891 Personal history of nicotine dependence; Z79.899 Other long term (current) drug therapy
CPT/HCPCS: 44361; 88305; J2405